=== PATIENT | female | born 1940 | race Caucasian/White ===

== ENCOUNTER 2020-02-04 10:04 | Emergency (ER) | payer MEDICARE, SELFPAY ==
--- NOTE | 2020-02-04 10:38 | ECG_ITS ---
Test Reason : WEAKNESS Blood Pressure : / mmHG Vent. Rate : 094 BPM Atrial Rate : 094 BPM P-R Int : 258 ms QRS Dur : 110 ms QT Int : 360 ms P-R-T Axes : 000 061 080 degrees QTc Int : 450 ms Poor data quality Sinus rhythm with 1st degree A-V block with occasional Premature ventricular complexes Septal infarct , age undetermined Abnormal ECG When compared with ECG of 02-MAR-2019 04:35, Premature ventricular complexes are now Present MO interval has increased Left bundle branch block is no longer Present (probably rate related LBBB) Septal infarct is now Present Referred By: Altagracia Salazar Electronically Signed By:Nawaf Sam
--- NOTE | 2020-02-04 11:21 | ED_ITS ---
HPI - URI/Sore Throat General Time Seen by Provider: 02/04/20 10:38 Source: patient Mode of arrival: EMS Limitations: no limitations History of Present Illness HPI Narrative: 79yoF c PMHx of COPD, CHF, CKD stage 3, hypertension, diffuse large B-cell lymphoma, anxiety, depression, lumbar degenerative disc disease, insomnia who is a daily smoker presenting to the ED c c/o worsening shortness of breath over the past few days worse today with associated dyspnea on exertion or orthopnea. Denies any fevers, chills, dizziness, headaches, chest pain, palpitations or any other symptoms complaints or concerns at this time. Denies recent travel. Reports that her roommate was recently hospitalized here for ?her heart not for COVID?. Denies any other sick contacts that she is aware about. Related Data Home Medications Medication Instructions Recorded Confirmed albuterol sulfate 2.5 mg INHALATION Q6H PRN 12/16/19 12/16/19 albuterol sulfate 90 mcg/actuation 2 puff INHALATION QID PRN g 12/16/19 12/16/19 aerosol inhaler atenolol 25 mg tablet 25 mg PO DAILY 12/16/19 12/16/19 fluoxetine 10 mg capsule 10 mg PO DAILY 12/16/19 12/16/19 hydrocodone 5 mg-acetaminophen 325 1 tab PO .1 to 2 times a day PRN 12/16/19 12/16/19 mg tablet tab umeclidinium 62.5 mcg/actuation 1 inh INHALATION DAILY 12/16/19 12/16/19 blister powder for inhalation Previous Rx's Medication Instructions Recorded fluticasone 232 mcg-salmeterol 14 1 inh PO BID #1 ea 12/30/19 mcg/actuation breath activated powdr nicotine 14 mg/24 hr daily 1 patch TRANSDERMAL Q24H #28 ea 01/19/20 transdermal patch ipratropium 0.5 mg-albuterol 3 mg 3 ml INHALATION Q6-8H PRN 30 Days 01/23/20 (2.5 mg base)/3 mL nebulization #360 ml soln tiotropium bromide 2.5 2 puff INHALATION DAILY 30 Days #4 01/23/20 mcg/actuation mist for inhalation g budesonide-formoterol HFA 160 2 puff INHALATION BID 30 Days 12/11/20 mcg-4.5 mcg/actuation aerosol #10.2 g inhaler lorazepam 1 mg tablet 1 mg PO BID PRN 30 Days #60 tab 02/02/20 Allergies Allergy/AdvReac Type Severity Reaction Status Date / Time Penicillins [PCN] Allergy Severe ANAPHYLAXIS Verified 12/16/19 11:49 nitrofurantoin Allergy Intermediate SHORTNESS Verified 12/16/19 11:49 [From MACROBID] OF BREATH amoxicillin Allergy Unknown Unknown Verified 12/16/19 11:49 penicillin V Allergy Unknown unknown Verified 12/16/19 11:49 tiotropium Allergy Unknown Unknown Verified 12/16/19 11:49 [Spiriva with HandiHaler] barium sulfate AdvReac Intermediate depression Verified 12/16/19 11:49 lisinopril AdvReac Intermediate wild dreams Verified 12/16/19 11:49 varenicline [From Chantix] AdvReac Intermediate depression Verified 12/16/19 11:49 Review of Systems Review of Systems: Constitutional : denies med noncompliance, no history of PE or DVT, denies recent travel, No Fever, No Chills ENT/Mouth : No Hoarseness, No sore throat, No Rhinorrhea Eyes: No Redness, No Discharge, No Vision Changes Cardiovascular : No Chest Pain, + SOB, + Dyspnea on Exertion, + orthopnea, No Edema, no pleurisy, Respiratory : + Cough, No Sputum, no stridor, no hemoptysis, Gastrointestinal : No Nausea, No Vomiting, No Diarrhea, No abdominal Pain Genitourinary : No Dysuria, No Hematuria Musculoskeletal : No joint pain, No Myalgias Extremities: no extremity swelling /pain Skin : No rash, no itching, no swelling Neuro : No Weakness, No Numbness, No Headache, No Dizziness Yes all other systems are reviewed and are negative [facility] Past Medical History Attestation statement: The following information was validated with the patient. Medical History Anxiety Benign essential hypertension CHF (congestive heart failure) Chronic kidney disease (CKD), stage III (moderate) COPD (chronic obstructive pulmonary disease) COPD exacerbation Depression Diffuse large B-cell lymphoma Insomnia Lumbar degenerative disc disease Smoker Surgical History No pertinent past surgical history Family History Family History Father Diabetes CVD (cardiovascular disease) Mother Chronic mental illness Social History Social History Smoking Status: Current every day smoker Tobacco Type: Cigarette Cigarettes Per Day: 5 Advance Directives: No Advance Directives Information Provided: No Physical Exam Vital Signs: Vital Signs: vital signs have been reviewed as normal and appeared to be correct. Blood pressure normal. Heart rate tachycardic. R espiration rate normal. Temperature normal. Oxygen saturation low 90s-95%on RA. Appearance: Alert. Oriented X3. Acute mild respiratory distress Head: Normal external exam. Normocephalic. Atraumatic. Eyes: PERRLA. EOMI. Conjunctiva and sclera normal. Eyelids normal. ENT: EAC normal. TM's Normal. Pharynx normal. Uvula midline. Moist mucous membranes. No trismus noted. No drooling noted. No muffled voice noted. Neck: Normal inspection. Neck supple. FROM. No adenopathy. Thyroid Normal. No meningeal signs. CVS: Normal heart rate and rhythm. Heart sound normal. No murmurs noted. Pulses normal throughout. Respiratory: Acute mild respiratory distress. Patient has decreased breath sounds throughout with inspiratory and expiratory wheezing throughout with acce ssory muscle usage. No rales/rhonchi noted. Chest is nontender. Back: Full range of motion noted. Skin: Skin warm and dry. Normal skin color. Normal skin turgor. No rashes/lesions/lacerations noted. Extremities: No lower extremity edema. No calf tenderness noted. Extremities exhibit normal range of motion. Extremities nontender. Neuro: Oriented X 3. No motor deficit. No sensory deficit. Reflexes normal. Course Course Course Narrative: 10:40am - 79yoF c PMHx of COPD, CHF, CKD stage 3, hypertension, diffuse large B-cell lymphoma, anxiety, depression, lumbar degenerative disc disease, insomnia who is a daily smoker presenting to the ED c c/o worsening shortness of breath over the past few days worse today with associated dyspnea on exertion or orthopnea. - On exam patient is alert and oriented x3. And mild acute respiratory distress with accessory muscle usage and inspiratory and expiratory wheezing throughout although oxygen saturation is 90-95% on room air. Otherwise all other vitals are within normal limits. Patient does not have any calf tenderness and no lower extremity edema noted. - Concern for COPD exacerbation vs pneumonia vs COVID vs viral syndrome - Plan: Labs, EKG, CXR, Respiratory Panel. Provide a L of IV fluids, an hour long albuterol breathing treatment, 2 g of magnesium and 125 mg of Solu-Medrol then re-evaluate. MDM - URI/Sore Throat Medical Records Attestation: I reviewed the patient's medical records. Lab Data Attestation: I reviewed the patient's lab results. ECG Data Attestation: I personally reviewed and interpreted this ECG as follows: ECG interpretation date: 02/04/20 ECG interpretation time: 10:50 Interpretation: Sinus rhythm with first-degree AV block with occasional PVCs normal MS interval no acute ischemic changes noted. Discharge Plan Discharge Prescriptions: No Action fluticasone propion-salmeterol 232-14 mcg/actuation aerosol powdr breath activated 1 inh PO BID Qty: 1 RF: 0 nicotine 14 mg/24 hr patch 24 hour 1 patch transdermal Q24H Qty: 28 RF: 0 Spiriva Respimat 2.5 mcg/actuation mist 2 puff inhalation DAILY 30 Days Qty: 4 RF: 5 ipratropium-albuterol 0.5 mg-3 mg(2.5 mg base)/3 mL solution for nebulization 3 ml inhalation Q6-8H PRN (Reason: wheezing) 30 Days Qty: 360 RF: 3 budesonide-formoterol [Symbicort] 160-4.5 mcg/actuation HFA aerosol inhaler 2 puff inhalation BID 30 Days Qty: 10.2 RF: 12 lorazepam 1 mg tablet 1 mg PO BID PRN (Reason: anxiety) 30 Days Qty: 60 RF: 0 fluoxetine 10 mg capsule 10 mg PO DAILY RF: 0 atenolol 25 mg tablet 25 mg PO DAILY RF: 0 albuterol sulfate 2.5 mg /3 mL (0.083 %) solution for nebulization 2.5 mg inhalation Q6H PRN (Reason: shortness of breath or wheezing) RF: 0 albuterol sulfate 90 mcg/actuation HFA aerosol inhaler 2 puff inhalation QID PRN (Reason: shortness of breath or wheezing) RF: 0 hydrocodone-acetaminophen 5-325 mg tablet 1 tab PO .1 to 2 times a day PRN (Reason: pain) RF: 0 Incruse Ellipta 62.5 mcg/actuation blister with device 1 inh inhalation DAILY RF: 0
[2020-02-04] MEDS: Magnesium Sulfate/H2O 2 GM/50 ML PIGGYBACK IV (11:45)
[2020-02-04] MEDS: 0.9 % Sodium Chloride 1,000 ML 999 ML IVCONT (11:45)
[2020-02-04] MEDS: methylPREDNISolone Sod Succ/PF 125 MG/2 ML VIAL IVPUSH (11:45)
[2020-02-04 11:48] VITALS: BP 155/77; PULSE 90; RESP 18; TEMP 37.1; O2SAT 94
[2020-02-04 11:49] LABS: Adenovirus PCR Not Detected (Not Detect.); Bordetella parapertussis PCR Not Detected (Not Detect.); Bordetella pertussis PCR Not Detected (Not Detect.); Chlamydia pneumoniae PCR Not Detected (Not Detect.); Coronavirus 229E PCR Not Detected (Not Detect.); Coronavirus HKU1 PCR Not Detected (Not Detect.); Coronavirus NL63 PCR Not Detected (Not Detect.); Coronavirus OC43 PCR Not Detected (Not Detect.); Human metapneumovirus PCR Not Detected (Not Detect.); Influenza A PCR Not Detected (Not Detect.); Influenza B PCR Not Detected (Not Detect.); Mycoplasma pneumoniae PCR Not Detected (Not Detect.); Parainfluenza 1 PCR Not Detected (Not Detect.); Parainfluenza 2 PCR Not Detected (Not Detect.); Parainfluenza 3 PCR Not Detected (Not Detect.); Parainfluenza 4 PCR Not Detected (Not Detect.); RSV PCR Not Detected (Not Detect.); Rhino/Enterovirus PCR Not Detected (Not Detect.); SARS-CoV-2 PCR Not Detected (Not Detect.)
[2020-02-04 11:58] LABS: Basophils Percent Auto 0.2 % (0-2); Eosinophils Absolute Auto 0.3 X10*3/uL (0.0-0.4); Hemoglobin 11.7 g/dl (12.0-16.0); Imm Gran Abs Auto 0.04 X10*3/uL (0.00-0.03); Imm Gran Pct Auto 0.5 % (0.0-0.4); Lymphocytes Absolute Auto 0.6 X10*3/uL (1.2-4.9); Lymphocytes Percent Auto 7.5 % (20-40); Mean Corpuscular HGB Conc 32.5 g/dl (31.0-35.0); Mean Corpuscular Hemoglobin 34.2 pg (27.0-33.0); Mean Corpuscular Volume 105.3 fL (80-98); Mean Platelet Volume 8.9 fL (9.4-12.3); Monocytes Absolute Auto 0.4 X10*3/uL (0.1-1.2); Monocytes Percent Auto 5.1 % (2-11); Neutrophils Absolute Auto 6.9 X10*3/uL (2.0-8.3); Neutrophils Percent Auto 82.7 % (45-73); Platelet Count 204 X10*3/uL (160-400); Red Blood Count 3.42 X10*6/uL (4.20-5.50); Red Cell Distribution Width 13.5 % (11.0-16.0); SCAN SMEAR FLAG 1; White Blood Count 8.3 X10*3/uL (4.8-10.8)
[2020-02-04 12:00] LABS: MANUAL DIFF FLAG SCAN
[2020-02-04 12:03] LABS: Prothrombin Time 12.4 SEC (10.8-13.0)
[2020-02-04 12:06] LABS: D Dimer 858 NG/ML
[2020-02-04 12:28] LABS: Lactate Dehydrogenase 132 U/L (122-220)
[2020-02-04 12:31] LABS: Alanine Aminotransferase 26 U/L (0-31); Albumin Level 3.6 g/dL (3.5-5.0); Alkaline Phosphatase 158 U/L (39-117); Anion Gap 12 (12-20); Aspartate Amino Transferase 20 U/L (5-31); Bilirubin Direct 0.3 mg/dL (0.0-0.5); Bilirubin Total 0.6 mg/dL (0.0-1.0); Blood Urea Nitrogen 33 mg/dL (9-16); Calcium 8.6 mg/dL (8.4-10.2); Carbon Dioxide 29 mmol/L (22-29); Chloride 102 mmol/L (96-108); Estimated Glomerular Filt Rate 52; Glucose Random 91 mg/dL (60-115); Potassium 4.2 mmol/l (3.3-5.1); Sodium 139 mmol/L (135-145); Total Protein 6.4 g/dL (6.5-8.0)
[2020-02-04 12:34] LABS: B Type Natriuretic Peptide 467 pg/mL (<100)
[2020-02-04] MEDS: Albuterol Sulfate 90 MCG 8 GM INHALER 4 PUFF INHALE (12:34)
[2020-02-04 12:39] LABS: SLIDE REVIEW VERIFIED
--- NOTE | 2020-02-04 12:42 | XR_ITS ---
EXAMINATION: XR CHEST CLINICAL INFORMATION: SOB. COMPARISON: None TECHNIQUE: Frontal view of the chest was obtained. FINDINGS: The lungs are hyperinflated with patchy consolidation left upper lobe suprahilar region suggestive of infiltrate or mass. Rest of lungs are clear. Slight increase interstitial markings are seen in both lungs. Heart size and pulmonary vascularity is normal. No gross bony abnormality. XR/XR chest 1V IMPRESSION: Hyperinflated lungs with a new left upper lobe mass or consolidation.
[2020-02-04 12:46] LABS: Troponin-I High Sensitivity 28.2 ng/L (<3.5-17.0)
[2020-02-04 12:52] LABS: Ferritin 336 ng/mL (10-250)
[2020-02-04 13:03] LABS: Procalcitonin 0.89 ng/mL
[2020-02-04 13:15] VITALS: BP 170/74; PULSE 95; RESP 18; TEMP 36.9; O2SAT 96
--- NOTE | 2020-02-04 13:29 | CT_ITS ---
EXAMINATION: CT ANGIOGRAM OF THE CHEST WITH AND WITHOUT CONTRAST (CT PULMONARY ANGIOGRAM FOR PE) CLINICAL INFORMATION: Reason for Exam sob, elevated d dimer COMPARISON: None TECHNIQUE: Prior to contrast administration, noncontrast localization images were obtained. Subsequently, multidetector volumetric imaging was performed from the thoracic inlet to below the diaphragms following the administration of 80 mL Omnipaque 350 intravenous contrast. No contrast reaction reported Sagittal, coronal, and MIP oblique sagittal reformatted images were obtained on the CT workstation, uploaded to PACS, and reviewed. This CT examination was performed using dose optimization techniques as appropriate, variously including the following: *Automated exposure control *Adjustment of mA and/or kV according to patient size (this includes techniques or standardized protocols for targeted exams where dose is matched to indication/reason for exam; i.e. extremities or head) *Use of iterative reconstruction technique Total exam dose-length product 201 mGy-cm FINDINGS: QUALITY OF STUDY/CONTRAST BOLUS: Satisfactory. PULMONARY ARTERIES: There is good opacification of pulmonary arteries and their branches without any intraluminal filling defect or narrowing. The right and left pulmonary artery appears slightly enlarged. The left ovary artery measures 3.1 cm and right pulmonary artery measures 3.3 cm. THORACIC AORTA: The thoracic aorta is of normal caliber. There is no aneurysm or dissection. There are vascular calcifications throughout the thoracic aorta. LUNG: There is left upper lobe para-aortic infiltrative lesion/mass, difficult to measure roughly measures 4.0 x 2.3 cm. There is prominent intralobular markings and patchy opacification in the left upper lobe surrounding the lesion and in the lingula. There are no additional nodules visualized. No acute consolidation. The lungs are hyperinflated. PLEURA: No pleural effusion or pneumothorax. MEDIASTINUM: There are numerous anterior pretracheal, aortic window lymph nodes the largest pretracheal lymph node measures 8 mm. No evidence of septal bowing or right heart strain. CHEST WALL/AXILLA: No axillary or internal mammary lymphadenopathy. OSSEOUS STRUCTURES: No lytic or sclerotic process seen. There is mild loss of T7 and T8 vertebral height likely chronic. Endplate disease is seen. UPPER ABDOMEN: Visualized lies liver, spleen, pancreas and bilateral adrenal glands are unremarkable. No reflux of contrast into the hepatic veins to suggest elevated right heart pressures. CT/CT angio chest PE protocol IMPRESSION: Infiltrative mass left upper lobe. Differential diagnoses may include pneumonia. There is intralobular thickening and patchy opacification seen and involving the entire left upper lobe and the lingula. Reactive lymphadenopathy seen in the mediastinum. No evidence of PE. No aortic aneurysm or dissection. Prominent bilateral right and left pulmonary arteries, ? pulmonary arterial hypertension. VTE: negative
[2020-02-04] MEDS: iohexoL 350 MG/ML 100 ML INFUS..BTL 75 ML IV (13:56)
[2020-02-04] MEDS: levoFLOXacin/D5W 500 MG/100 ML PIGGYBACK 100 MG IV (14:03)
[2020-02-04 14:04] VITALS: BP 171/74; PULSE 87; RESP 16; TEMP 36.7; O2SAT 89; O2SAT 95
--- NOTE | 2020-02-04 15:17 | PC.NURSE ---
PROVIDER AT THE BEDSIDE TO REVIEW CARE PLAN AND DISCUSS ADMISSION VS D/C PT IS REQUESTING TO GO HOME AND RETURN IF WORSE
== END 2020-02-04 16:49 | disposition home or self-care (01) ==
PROVIDERS: Physician Assistant Medical; Emergency Provider Emergency Medicine
DX: J18.9 Pneumonia, unspecified organism (principal); R91.8 Other nonspecific abnormal finding of lung field; F41.9 Anxiety disorder, unspecified; I13.0 Hypertensive heart and chronic kidney disease with heart failure and stage 1 through stage 4 chronic kidney disease, or unspecified chronic kidney disease; N18.30 Chronic kidney disease, stage 3 unspecified; I50.9 Heart failure, unspecified; J44.9 Chronic obstructive pulmonary disease, unspecified; F17.210 Nicotine dependence, cigarettes, uncomplicated
CPT/HCPCS: 36415; 71045; 71275; 80048; 80076; 82728; 83615; 83735; 83880; 84145; 84484; 85025; 85379; 85610; 87633; 93005; 99282; 99283; J1956; J2930; J3475; Q9967

== ENCOUNTER → 2020-03-04 13:36 | Outpatient (BNVA) | payer MEDICARE, SELFPAY | PROVIDERS: PCP Internal Medicine; Visit Provider Internal Medicine | DX: J44.9 Chronic obstructive pulmonary disease, unspecified (principal); F17.200 Nicotine dependence, unspecified, uncomplicated; Z71.6 Tobacco abuse counseling | CPT/HCPCS: 99212 ==

== ENCOUNTER → 2020-05-04 14:11 | Outpatient (BNVA) | payer MEDICARE, SELFPAY | PROVIDERS: PCP Internal Medicine; Visit Provider Internal Medicine | DX: J44.9 Chronic obstructive pulmonary disease, unspecified (principal); R91.8 Other nonspecific abnormal finding of lung field; F17.200 Nicotine dependence, unspecified, uncomplicated; Z71.6 Tobacco abuse counseling | CPT/HCPCS: 99212 ==

== ENCOUNTER → 2020-07-20 13:35 | Outpatient (BNVA) | payer MEDICARE, SELFPAY | PROVIDERS: PCP Internal Medicine; Visit Provider Internal Medicine | DX: J44.9 Chronic obstructive pulmonary disease, unspecified (principal); R91.8 Other nonspecific abnormal finding of lung field; F17.200 Nicotine dependence, unspecified, uncomplicated; Z79.899 Other long term (current) drug therapy; Z71.6 Tobacco abuse counseling | CPT/HCPCS: 99212 ==

== ENCOUNTER 2020-07-28 22:15 | Inpatient (IN) | payer MEDICARE, SELFPAY ==
--- NOTE | ~2020-07-28 | XR_ITS ---
EXAMINATION: XR CHEST CLINICAL INFORMATION: Shortness of breath, history of COPD and CHF COMPARISON: 02/04/2020 TECHNIQUE: Frontal view of the chest was obtained. FINDINGS: The lungs are hyperinflated, suspicious for underlying COPD. Previously identified focal opacity in the left upper lobe now appears essentially resolved. No new consolidation identified bilaterally. No evidence of pneumothorax, significant pleural effusion, or pulmonary edema. The cardiomediastinal silhouette is stable. Calcification is present at the aortic arch. No acute osseous findings are seen. XR/XR chest 1V IMPRESSION: No new acute findings. Previously identified focal left upper lobe opacity from 02/04/2020 appears essentially resolved. Hyperinflated lungs consistent with COPD.
--- NOTE | ~2020-07-28 | NM_ITS ---
Myocardial perfusion study Indication: Elevated Troponin. LV systolic dysfunction to evaluate for myocardial ischemia Technique: The patient was brought in for a Lexiscan perfusion study on 08/02/2020. Patient performed low-level exercise and was injected 0.4 mg of Lexiscan intravenously. Within a minute of injection, 25 mCi of sestamibi was given intravenously. Images were obtained using the SPECT gamma camera interlaced with the gating device. Images were obtained in supine position. Resting perfusion study was performed on 07/30/2020. Patient was administered 25 mCi of sestamibi intravenously at rest. Images were then obtained in supine position. Images obtained with and without CT attenuation. Total DLP 72 mGy-cm. Images were processed with the software and compared side to side in short axis, horizontal long axis and vertical long axis views. Findings: The stress perfusion study showed nonattenuated images show mildly reduced uptake in the septum and inferoapical wall of the LV myocardium which shows some thinning. Attenuation corrected images are within normal limits normal uptake of LV myocardium in all segments.. The gated study shows reduced LV systolic function with calculated LVEF of 36%. LV cavity is normal in size. The gated study shows reduced apical and mid ventricular wall thickening and contraction of segments. Resting study shows nonattenuated images show mildly reduced uptake in the septum and apex of the LV myocardium with some thinning of the distal inferior wall. Attenuation corrected images show mildly to moderately reduced uptake in the septum distal anterior, apex and inferoapical wall of the LV myocardium.. Gating at rest reveals apical wall motion abnormality with ejection fraction at 45%. The findings are consistent with normal myocardial perfusion. NM/NM jerilyn perf SPECT rest & str Impression: 1. Myocardial perfusion imaging study shows normal myocardial perfusion 2. Gated LVEF is 36% with stress and 45% with stress 3. Transient ischemic dilatation not present EKG is nondiagnostic for ischemia
--- NOTE | ~2020-07-28 | CT_ITS ---
EXAMINATION: CT ANGIOGRAM OF THE CHEST WITH AND WITHOUT CONTRAST (CT PULMONARY ANGIOGRAM FOR PE) CLINICAL INFORMATION: Reason for Exam sob, hypoxic with exertion, hx B cell lymphoma COMPARISON: CTA chest 02/04/2020 TECHNIQUE: Prior to contrast administration, noncontrast localization images were obtained. Subsequently, multidetector volumetric imaging was performed from the thoracic inlet to below the diaphragms following the administration of 80 mL Omnipaque 350 intravenous contrast. No contrast reaction reported Sagittal, coronal, and MIP oblique sagittal reformatted images were obtained on the CT workstation, uploaded to PACS, and reviewed. This CT examination was performed using dose optimization techniques as appropriate, variously including the following: *Automated exposure control *Adjustment of mA and/or kV according to patient size (this includes techniques or standardized protocols for targeted exams where dose is matched to indication/reason for exam; i.e. extremities or head) *Use of iterative reconstruction technique Total exam dose-length product 94 mGy-cm FINDINGS: QUALITY OF STUDY/CONTRAST BOLUS: Satisfactory. PULMONARY ARTERIES: No central or segmental pulmonary emboli. THORACIC AORTA: There is atherosclerotic calcification of thoracic aorta and coronary arteries. LUNG: Centrilobular emphysema with patchy dense opacity right lung base likely consolidation or chronic scarring. It is new since the last exam 02/04/2020. Rest of the lungs are expanded. There is bright lower lobe bronchial wall thickening with intrabronchial or debris. Previously visualized lingular patchy opacity has improved. Previously seen left upper lobe infiltrate or mass has resolved. PLEURA: No pleural effusion or pneumothorax. MEDIASTINUM: Heart size is normal. The thoracic aorta is normal caliber no pericardial effusion seen. Central trachea and the bronchi appears widely patent. There is atherosclerotic calcification of thoracic arch without dilation. Thyroid lobes are symmetrical and normal. No evidence of septal bowing or right heart strain. CHEST WALL/AXILLA: No axillary or internal mammary lymphadenopathy. OSSEOUS STRUCTURES: No acute or suspicious osseous abnormality. There are degenerative disc changes and vacuum disc phenomena upper lumbar spine. UPPER ABDOMEN: There is a 2 cm lesion right hepatic lobe probable cyst. No additional lesions seen. Bilateral adrenal glands are grossly unremarkable. There is a radiopaque calculi upper pole left kidney. No reflux of contrast into the hepatic veins to suggest elevated right heart pressures. CT/CT angio chest PE protocol IMPRESSION: No evidence of PE. No evidence aortic dissection or aneurysm. Right lower lobe chronic atelectasis or consolidation, new since 2019. Left upper lobe infiltrative mass has resolved. Diffuse emphysema mild bronchial wall thickening and intrabronchiolar debris in both lower lobes. Likely right hepatic cyst VTE: negative
[2020-07-28 22:25] VITALS: BP 184/89; PULSE 100; RESP 16; TEMP 36.7; O2SAT 92; O2SAT 99; BMI 18.8
[2020-07-28 22:30] VITALS: RESP 18
--- NOTE | 2020-07-28 22:30 | ECG_ITS ---
Test Reason : SOB Blood Pressure : / mmHG Vent. Rate : 109 BPM Atrial Rate : 109 BPM P-R Int : 136 ms QRS Dur : 100 ms QT Int : 368 ms P-R-T Axes : 084 050 092 degrees QTc Int : 495 ms Sinus tachycardia Septal infarct (cited on or before 04-FEB-2020) Possible Lateral infarct , age undetermined Abnormal ECG When compared with ECG of 04-FEB-2020 10:50, Premature ventricular complexes are no longer Present TN interval has decreased Borderline criteria for Lateral infarct are now Present Referred By: Cass Han Electronically Signed By:JUAN DOCKERY MD
--- NOTE | 2020-07-28 22:31 | ED_ITS ---
HPI - SOB/Dyspnea General Chief Complaint: Dyspnea Stated Complaint: INCREASED SOB Time Seen by Provider: 07/28/20 22:21 Source: patient and EMS Mode of arrival: EMS Limitations: no limitations History of Present Illness HPI Narrative: Patient comes emergency room complaining of shortness of breath. Patient states she is known to have CHF and COPD. States that she usually gets short of breath several times per day, uses her inhaler and the shortness of breath resolves. However, this night, the shortness of breath persisted. Patient denies being sick lately, denies any new URI symptoms, no chest pain. Denies abdominal pain MD elicited complaint: shortness of breath Related Data Home Medications Medication Instructions Recorded Confirmed albuterol sulfate 2.5 mg INHALATION Q6H PRN 07/20/20 docusate sodium 100 mg capsule 100 mg PO DAILY PRN 07/20/20 polyethylene glycol 3350 17 17 g PO DAILY PRN g 07/20/20 gram/dose oral powder Previous Rx's Medication Instructions Recorded ipratropium 0.5 mg-albuterol 3 mg 3 ml INHALATION Q6-8H PRN 30 Days 01/23/20 (2.5 mg base)/3 mL nebulization #360 ml soln budesonide-formoterol HFA 160 2 puff INHALATION BID 30 Days 02/19/20 mcg-4.5 mcg/actuation aerosol #10.2 g inhaler hydrocodone 5 mg-acetaminophen 325 1 tab PO .1 to 2 times a day PRN 03/19/20 mg tablet 30 Days #60 tab nebulizers #1 ea 03/22/20 nicotine 14 mg/24 hr daily 1 patch TOPICAL DAILY #28 patch 04/19/20 transdermal patch umeclidinium 62.5 mcg/actuation 1 inh PO DAILY #30 ea 04/27/20 blister powder for inhalation fluoxetine 20 mg tablet 20 mg PO DAILY 30 Days #30 tab 05/10/20 fluticasone propionate 50 1 spray INTRANASAL BID PRN #16 g 05/21/20 mcg/actuation nasal spray,suspension atenolol 25 mg tablet 25 mg PO DAILY #90 tab 06/23/20 albuterol sulfate 90 mcg/actuation 2 puff INHALATION QID PRN 30 Days 07/20/20 aerosol inhaler #8.5 g lorazepam 1 mg tablet 1 mg PO BID PRN 30 Days #60 tab 07/20/20 Allergies Allergy/AdvReac Type Severity Reaction Status Date / Time Penicillins [PCN] Allergy Severe ANAPHYLAXIS Verified 07/20/20 13:49 nitrofurantoin Allergy Intermediate SHORTNESS Verified 07/20/20 13:49 [From MACROBID] OF BREATH amoxicillin Allergy Unknown Unknown Verified 07/20/20 13:49 penicillin V Allergy Unknown unknown Verified 07/20/20 13:49 tiotropium Allergy Unknown Unknown Verified 07/20/20 13:49 [Spiriva with HandiHaler] barium sulfate AdvReac Intermediate depression Verified 07/20/20 13:49 lisinopril AdvReac Intermediate wild dreams Verified 07/20/20 13:49 varenicline [From Chantix] AdvReac Intermediate depression Verified 07/20/20 13:49 Review of Systems Review of Systems: Constitutional : No Weight loss, No Fever, No Chills, No Night Sweats, No Fatigue, No Malaise ENT/Mouth : No Hearing loss, No Ear Pain, No Nasal Congestion, No Sinus Pain, No Hoarseness, No sore throat, No Rhinorrhea, No Swallowing Difficulty Eyes: No Eye Pain, No Swelling, No Redness, No Foreign Body, No Discharge, No Vision Changes Cardiovascular : No Chest Pain, complaining of worsening shortness of breath, worsening of Dyspnea on Exertion, No Orthopnea, No Edema, No Palpitations Respiratory : No Cough, No Sputum, No Wheezing, No Smoke Exposure, No Dyspnea Gastrointestinal : No Nausea, No Vomiting, No Diarrhea, No Constipation, No abdominal Pain, No Hematochezia, No Melena Genitourinary : no irregular bleeding, No Dysuria, No Urinary Frequency, No Cam turia, No Urinary Incontinence, No Urgency, No Flank Pain, No Urinary Flow Changes, No Hesitancy Musculoskeletal : No joint pain, No Myalgias, No Joint Swelling Skin : No Skin Lesions, No rash Neuro : No Weakness, No Numbness, No Paresthesias, No Loss of Consciousness, No Dizziness, No Headache Psych : No Anxiety/Panic, No Depression, No SI/HI/AH/VH, No Social Issues, Heme/Lymph: No Bruising, No Bleeding,No Lymphadenopathy Endocrine : No Polyuria, No Polydipsia, No Temperature Intolerance PMFSH Past Medical History Medical History Anxiety Benign essential hypertension CHF (congestive heart failure) Chronic kidney disease (CKD), stage III (moderate) Constipation COPD (chronic obstructive pulmonary disease) COPD exacerbation Depression Diffuse large B-cell lymphoma Insomnia Left upper lobe pulmonary infiltrate Lumbar degenerative disc disease (~07/20/20) Smoker Surgical History No pertinent past surgical history Family History Family History Father Diabetes CVD (cardiovascular disease) Mother Chronic mental illness Social History Social History Alcohol intake: unknown Patient Tobacco Use Status: Tobacco use Unknown Cigarettes Per Day: 5 Use of substances other than those prescribed or required for medical reasons: Unknown Advance Directives: No Advance Directives Information Provided: No Physical Exam Vital Signs: Vital Signs: Last Vital Signs Temp 98.0 F 07/29/20 00:00 Pulse 100 07/29/20 00:00 Resp 18 07/29/20 00:00 BP 184/89 H 07/29/20 00:00 Pulse Ox 99 07/29/20 00:00 Oxygen Flow Rate 2 07/28/20 22:25 Body Mass Index 18.8 Appearance: Alert. Oriented X3. No acute distress. Eyes: Pupils equal, round and reactive to light. ENT: Pharynx normal. Neck: Normal inspection. Neck supple. No lymph nodes noted. No crepitus CVS: Normal heart rate and rhythm. Pulses normal. Normal S1 and S2 Respiratory: No respiratory distress. Oxygen saturation 94% on room air, decreased breath sounds bilaterally, mild bilateral wheezing Abdomen: Soft and nontender. No rigidity. No distention. good BS x4 Skin: Skin warm and dry. Normal skin turgor. Extremities: No lower extremity edema. No lower extremity edema. No Lacerations. No Rash Neuro: Oriented X 3. No motor deficit. No sensory deficit. Moving all extermities. No slurred speech. Course Course Course Narrative: Patient states that she feels well. However when she starts walking she feels short of breath. Patient denies chest pain or shortness of breath at rest. When patient started walking, her oxygen saturation decreased to 86% while walking on room air. I discussed the patient with Dr. Rebolledo. Patient will be treated empirically for COPD. At this time sepsis is not suspected. Per Dr. Rebolledo is request, this time will get a CT for PE. Patient does have history of CHF, however BNP is at baseline. CHF exacerbation is not suspected at this time. Elevated troponin is likely secondary to demand ischemia. Troponin 2. Pending. Patient does not have any chest pain. EKG stab le, no changes from EKG from February 2019. Patient admitted by Dr. Rebolledo. MDM - SOB/Dyspnea Lab Data Result diagrams: 07/28/20 23:38 07/28/20 23:38 Labs: Lab Results 07/28/20 07/28/20 07/28/20 Range/Units 23:38 23:38 23:38 WBC 10.0 (4.8-10.8) X10*3/uL RBC 3.41 L (4.20-5.50) X10*6/uL Hgb 11.5 L (12.0-16.0) g/dl Hct 35.3 L (37-47) % MCV 103.5 H (80-98) fL MCH 33.7 H (27.0-33.0) pg MCHC 32.6 (31.0-35.0) g/dl RDW 14.0 (11.0-16.0) % Plt Count 209 (160-400) X10*3/uL MPV 8.4 L (9.4-12.3) fL Immature Gran % (Auto) 0.5 H (0.0-0.4) % Neut % (Auto) 79.2 H (45-73) % Lymph % (Auto) 10.9 L (20-40) % [place] % (Auto) 7.0 (2-11) % Eos % (Auto) 2.0 (0-4) % Baso % (Auto) 0.4 (0-2) % Lymph # (Auto) 1.1 L (1.2-4.9) X10*3/uL [place] # (Auto) 0.7 (0.1-1.2) X10*3/uL Eos # (Auto) 0.2 (0.0-0.4) X10*3/uL Baso # (Auto) 0.0 (0.0-0.2) X10*3/uL Abs Immat Gran (auto) 0.05 H (0.00-0.03) X10*3/uL Absolute Neuts (auto) 8.0 (2.0-8.3) X10*3/uL Absolute Nucleated RBC 0.000 (0.0-0.012) X10*3/uL Nucleated RBC % (auto) 0.0 (0.0-0.2) /100WBC Sodium 139 (135-145) mmol/L Potassium 4.0 (3.3-5.1) mmol/L Chloride 104 (96-108) mmol/L Carbon Dioxide 27 (22-29) mmol/L Anion Gap 12 (12-20) BUN 27 H (9-16) mg/dL Creatinine 1.16 (0.5-1.4) mg/dL Estim Creat Clear Calc 31.3 Estimated GFR 45 Random Glucose 122 H (60-115) mg/dL Lactic Acid (0.5-2.0) mmol/L Calcium 8.8 (8.4-10.2) mg/dL Total Bilirubin 0.6 (0.0-1.0) mg/dL Direct Bilirubin 0.2 (0.0-0.5) mg/dL AST 71 H (5-31) U/L ALT 38 H (0-31) U/L Alkaline Phosphatase 119 H D (39-117) U/L Troponin I High Sens 59.0 H* (<3.5-17.0) ng/L B-Natriuretic Peptide (<100) pg/mL Total Protein 6.3 L (6.5-8.0) g/dL Albumin 3.6 (3.5-5.0) g/dL COVID-19 ([facility]) (Negative) COVID-19 Clin Com 07/28/20 07/28/20 07/28/20 Range/Units 23:38 23:38 23:40 WBC (4.8-10.8) X10*3/uL RBC (4.20-5.50) X10*6/uL Hgb (12.0-16.0) g/dl Hct (37-47) % MCV (80-98) fL MCH (27.0-33.0) pg MCHC (31.0-35.0) g/dl RDW (11.0-16.0) % Plt Count (160-400) X10*3/uL MPV (9.4-12.3) fL Immature Gran % (Auto) (0.0-0.4) % Neut % (Auto) (45-73) % Lymph % (Auto) (20-40) % [place] % (Auto) (2-11) % Eos % (Auto) (0-4) % Baso % (Auto) (0-2) % Lymph # (Auto) (1.2-4.9) X10*3/uL [place] # (Auto) (0.1-1.2) X10*3/uL Eos # (Auto) (0.0-0.4) X10*3/uL Baso # (Auto) (0.0-0.2) X10*3/uL Abs Immat Gran (auto) (0.00-0.03) X10*3/uL Absolute Neuts (auto) (2.0-8.3) X10*3/uL Absolute Nucleated RBC (0.0-0.012) X10*3/uL Nucleated RBC % (auto) (0.0-0.2) /100WBC Sodium (135-145) mmol/L Potassium (3.3-5.1) mmol/L Chloride (96-108) mmol/L Carbon Dioxide (22-29) mmol/L Anion Gap (12-20) BUN (9-16) mg/dL Creatinine (0.5-1.4) mg/dL Estim Creat Clear Calc Estimated GFR Random Glucose (60-115) mg/dL Lactic Acid 0.8 (0.5-2.0) mmol/L Calcium (8.4-10.2) mg/dL Total Bilirubin (0.0-1.0) mg/dL Direct Bilirubin (0.0-0.5) mg/dL AST (5-31) U/L ALT (0-31) U/L Alkaline Phosphatase (39-117) U/L Troponin I High Sens (<3.5-17.0) ng/L B-Natriuretic Peptide 429 H (<100) pg/mL Total Protein (6.5-8.0) g/dL Albumin (3.5-5.0) g/dL COVID-19 ([facility]) Negative (Negative) COVID-19 Clin Com See Note Imaging Data Chest x-ray: Radiologist's impression: FINDINGS: The lungs are hyperinflated, suspicious for underlying COPD. Previously identified focal opacity in the left upper lobe now appears essentially resolved. No new consolidation identified bilaterally. No evidence of pneumothorax, significant pleural effusion, or pulmonary edema. The cardiomediastinal silhouette is stable. Calcification is present at the aortic arch. No acute osseous findings are seen. XR/XR chest 1V IMPRESSION: No new acute findings. Previously identified focal left upper lobe opacity from 02/04/2020 appears essentially resolved. Hyperinflated lungs consistent with COPD. ECG Data Attestation: I personally reviewed and interpreted this ECG as follows: (Sinus tachycardia, heart rate 109, nonspecific T-wave changes in V3 through V6, QTC 4 95, no EKG changes from February 2019) Discharge Plan Discharge Clinical Impression: COPD exacerbation Patient Disposition: Admitted As Inpatient
[2020-07-28 22:38] VITALS: PULSE 100; O2SAT 94
[2020-07-28] MEDS: Albuterol Sulfate (0.083%) 2.5 MG/3 ML VIAL.NEB 10 MG INHALE (22:38)
[2020-07-28 23:50] LABS: Basophils Percent Auto 0.4 % (0-2); Eosinophils Absolute Auto 0.2 X10*3/uL (0.0-0.4); Hematocrit 35.3 % (37-47); Hemoglobin 11.5 g/dl (12.0-16.0); Imm Gran Abs Auto 0.05 X10*3/uL (0.00-0.03); Imm Gran Pct Auto 0.5 % (0.0-0.4); Lymphocytes Absolute Auto 1.1 X10*3/uL (1.2-4.9); Lymphocytes Percent Auto 10.9 % (20-40); MANUAL DIFF FLAG NO; Mean Corpuscular HGB Conc 32.6 g/dl (31.0-35.0); Mean Corpuscular Hemoglobin 33.7 pg (27.0-33.0); Mean Corpuscular Volume 103.5 fL (80-98); Mean Platelet Volume 8.4 fL (9.4-12.3); Monocytes Absolute Auto 0.7 X10*3/uL (0.1-1.2); Neutrophils Percent Auto 79.2 % (45-73); Platelet Count 209 X10*3/uL (160-400); Red Blood Count 3.41 X10*6/uL (4.20-5.50)
[2020-07-29] VITALS (11 sets, daily range): BP systolic 144–184; BP diastolic 68–98; PULSE 86–121; RESP 14–23; TEMP 35.9–36.7; O2SAT 92–100; BMI 18.8
--- NOTE | 2020-07-29 | ECG_ITS ---
Test Reason : ELEVATED TROP Blood Pressure : / mmHG Vent. Rate : 103 BPM Atrial Rate : 103 BPM P-R Int : 126 ms QRS Dur : 084 ms QT Int : 336 ms P-R-T Axes : 000 106 268 degrees QTc Int : 440 ms Sinus tachycardia with occasional Premature ventricular complexes Anterolateral infarct (cited on or before 04-FEB-2020) Abnormal ECG When compared with ECG of 29-JUL-2020 00:48, Premature ventricular complexes are now Present QRS axis Shifted right Questionable change in initial forces of Anterolateral leads Nonspecific T wave abnormality now evident in Inferior leads Nonspecific T wave abnormality, worse in Anterolateral leads QT has shortened Referred By: Bess Dhillon Electronically Signed By:JUAN DOCKERY MD
[2020-07-29 00:05] LABS: COVID-19 Test Negative (Negative); IDNOW Serial# 9DD0AD1C
[2020-07-29 00:19] LABS: B Type Natriuretic Peptide 429 pg/mL (<100)
[2020-07-29 01:11] LABS: Lactic Acid 0.8 mmol/L (0.5-2.0)
[2020-07-29 01:40] LABS: Alanine Aminotransferase 38 U/L (0-31); Albumin Level 3.6 g/dL (3.5-5.0); Alkaline Phosphatase 119 U/L (39-117); Anion Gap 12 (12-20); Aspartate Amino Transferase 71 U/L (5-31); Bilirubin Direct 0.2 mg/dL (0.0-0.5); Blood Urea Nitrogen 27 mg/dL (9-16); Calcium 8.8 mg/dL (8.4-10.2); Carbon Dioxide 27 mmol/L (22-29); Chloride 104 mmol/L (96-108); Creatinine Clr Calc Pharmacy 31.3; Estimated Glomerular Filt Rate 45; Glucose Random 122 mg/dL (60-115); Sodium 139 mmol/L (135-145); Total Protein 6.3 g/dL (6.5-8.0)
[2020-07-29 01:50] LABS: Bilirubin Total 0.6 mg/dL (0.0-1.0)
[2020-07-29] MEDS: methylPREDNISolone Sod Succ 125 MG/2 ML VIAL IVPUSH (02:27)
[2020-07-29] MEDS: Acetaminophen 325 MG TABLET 650 MG PO ×2 (02:28→08:28)
[2020-07-29 02:38] LABS: Troponin-I High Sensitivity 194.8 ng/L (<3.5-17.0)
--- NOTE | 2020-07-29 03:05 | P.HPHOSP_ITS ---
History of Present Illness Date of Service: 07/29/20 Chief Complaint: Shortness of breath 80-year-old female with a past medical history of hypertension, CHF, CKD, COPD, diffuse large B-cell lymphoma, degenerative spine disease, tobacco dependence, anxiety, depression, insomnia, history of left upper lobe pulmonary infiltrate presented to the hospital with a chief complaint of shortness of breath. Patient reports that she has been feeling shortness of breath and which has not been improving with her home inhalers hence decided to come to the ER for further evaluation. Denies any dyspnea on exertion. Denies any cough or fevers. Denies any chest pain lightheadedness dizziness. Denies any numbness tingling. Denies any GI or symptoms. Review of all other systems is negative except mentioned above ER course: Per ER team patient was saturating 94% on room air, lung sounds are diminished; given nebulizers and Solu-Medrol. EKG was nonischemic. Troponins are indeterminate. CT angio of the chest was pending. Patient on ambulation desaturating to 86% on room air. Admitted to the hospital for further management. [facility] Medical History Anxiety Benign essential hypertension CHF (congestive heart failure) Chronic kidney disease (CKD), stage III (moderate) Constipation COPD (chronic obstructive pulmonary disease) COPD exacerbation Depression Diffuse large B-cell lymphoma Insomnia Left upper lobe pulmonary infiltrate Lumbar degenerative disc disease (~07/20/20) Smoker Family History Father Diabetes CVD (cardiovascular disease) Mother Chronic mental illness Surgical History No pertinent past surgical history Social History Household Members: Friend(s) Housing: Apartment Do you presently have visiting nurse or other home services: No Alcohol intake: unknown Patient Tobacco Use Status: Tobacco use Unknown Tobacco use type: Cigarette Cigarette Packs Per Day: 0.5 Cigarettes Per Day: 10.0 Smoked in Last 30 Days: Yes e-Cigarette/Vaping Use: Currently Using Patient Interested in Nicotine Replacement: Yes Patient Given Instructions on How to Stop Smoking: Yes Date Education Initiated: 07/29/20 Second Hand Smoke Exposure: Yes Use of substances other than those prescribed or required for medical reasons: No Currently Displaying Signs/Symptoms of Drug Intoxication Withdrawal: No Have you been hit, kicked, punched, or otherwise hurt by someone within the past year? If so, by whom?: No Do you feel safe in your current relationship?: No Is there a partner from a previous relationship who is making you feel unsafe now?: No Are you made to feel afraid or neglected: No Advance Directives: No Advance Directives Information Provided: No Advance Directives on File: No Do you have thoughts of harming others: None Do you have a plan to hurt others: No Plan Recently lost weight without trying: Yes How much weight loss: 34pounds or more Eating poorly because of decreased appetite: Yes Nutrition screen score: 7 Nutrition Risks: Anorexia and Difficulty chewing Patient : No : No Poor oral hygiene: No service: No Current occupational status: retired [employer] Allergies Allergy/AdvReac Type Severity Reaction Status Date / Time Penicillins [PCN] Allergy Severe ANAPHYLAXIS Verified 07/20/20 13:49 nitrofurantoin Allergy Intermediate SHORTNESS Verified 07/20/20 13:49 [From MACROBID] OF BREATH amoxicillin Allergy Unknown Unknown Verified 07/20/20 13:49 penicillin V Allergy Unknown unknown Verified 07/20/20 13:49 tiotropium Allergy Unknown Unknown Verified 07/20/20 13:49 [Spiriva with HandiHaler] barium sulfate AdvReac Intermediate depression Verified 07/20/20 13:49 lisinopril AdvReac Intermediate wild dreams Verified 07/20/20 13:49 varenicline [From Chantix] AdvReac Intermediate depression Verified 07/20/20 13:49 Active Medications: Current Medications Generic Name Dose Route Start Last Admin Trade Name Freq PRN Reason Stop Dose Admin Acetaminophen 650 mg 07/29/20 03:00 Acetaminophen 325 Mg Tablet PO Q6H PRN Pain, Mild (Pain Scale 1-3) Albuterol/Ipratropium 3 ml 07/29/20 03:03 Albuterol/Iprat 2.5/0.5mg 3 Ml Ampul.Neb INHALE RQ4H PRN Shortness of Breath/Wheezing Albuterol/Ipratropium 3 ml 07/29/20 08:00 Albuterol/Iprat 2.5/0.5mg 3 Ml Ampul.Neb INHALE RQ6H WHILE AWAKE [facility] Azithromycin 500 mg 07/29/20 03:00 Azithromycin 500 Mg Tablet PO Q24H [facility] Enoxaparin Sodium 40 mg 07/29/20 03:00 Enoxaparin Sodium 40 Mg/0.4 Ml Syringe SUBCUT Q24H [facility] Levofloxacin 500 mg in 100 mls @ 100 mls/hr 07/29/20 02:00 Levaquin IV Q24H [facility] Methylprednisolone Sodium Succinate 60 mg 07/29/20 03:00 Methylprednisolone Sod Succ 125 Mg/2 Ml Vial IVPUSH Q8H [facility] Nitroglycerin 0.4 mg 07/29/20 03:00 Nitroglycerin 0.4 Mg Tab.Subl SUBLINGUAL Q5M PRN Chest Pain Sodium Chloride 3 ml 07/29/20 08:00 0.9 % Sodium Chloride Flush 3 Ml Syringe IVFLUSH QSHIFT [facility] Home Medications Medication Instructions Recorded Confirmed Last Taken Type albuterol sulfate 2.5 mg INHALATION Q6H PRN 07/20/20 07/29/20 Unknown History docusate sodium 100 mg capsule 100 mg PO DAILY PRN 07/20/20 07/29/20 Unknown History polyethylene glycol 3350 17 17 g PO DAILY PRN g 07/20/20 07/29/20 Unknown History gram/dose oral powder Physical Exam Vital Signs and Narrative: Vital Signs: Last Vital Signs Temp 98.0 F 07/29/20 00:00 Pulse 100 07/29/20 00:00 Resp 18 07/29/20 00:00 BP 184/89 H 07/29/20 00:00 Pulse Ox 99 07/29/20 00:00 Oxygen Flow Rate 2 07/28/20 22:25 Body Mass Index 18.8 Gen: Appears be in no acute distress HEENT: NCAT, Moist mucosa. Pulmonary: Diminished breath sounds CVS: Normal S1-S2 Abdomen: BS+, Soft, Nontender Extremities: Warm well perfused Neuro: Alert and awake. Results Labs CBC and Chem 7: 08/01/20 08:34 08/01/20 08:34 Labs: Laboratory Results - last 24 hr 07/28/20 07/28/20 07/28/20 23:38 23:38 23:38 MCV 103.5 H MCH 33.7 H MCHC 32.6 RDW 14.0 Plt Count 209 MPV 8.4 L Immature Gran % (Auto) 0.5 H Neut % (Auto) 79.2 H Lymph % (Auto) 10.9 L Luna % (Auto) 7.0 Eos % (Auto) 2.0 Baso % (Auto) 0.4 Lymph # (Auto) 1.1 L Luna # (Auto) 0.7 Eos # (Auto) 0.2 Baso # (Auto) 0.0 Abs Immat Gran (auto) 0.05 H Absolute Neuts (auto) 8.0 Absolute Nucleated RBC 0.000 Nucleated RBC % (auto) 0.0 Anion Gap 12 Estim Creat Clear Calc 31.3 Estimated GFR 45 Random Glucose 122 H Lactic Acid Calcium 8.8 Total Bilirubin 0.6 Direct Bilirubin 0.2 AST 71 H ALT 38 H Alkaline Phosphatase 119 H D Troponin I High Sens 59.0 H* B-Natriuretic Peptide Total Protein 6.3 L Albumin 3.6 COVID-19 ([facility]) COVID-19 Clin Com 07/28/20 07/28/20 07/28/20 23:38 23:38 23:40 MCV MCH MCHC RDW Plt Count MPV Immature Gran % (Auto) Neut % (Auto) Lymph % (Auto) Luna % (Auto) Eos % (Auto) Baso % (Auto) Lymph # (Auto) Luna # (Auto) Eos # (Auto) Baso # (Auto) Abs Immat Gran (auto) Absolute Neuts (auto) Absolute Nucleated RBC Nucleated RBC % (auto) Anion Gap Estim Creat Clear Calc Estimated GFR Random Glucose Lactic Acid 0.8 Calcium Total Bilirubin Direct Bilirubin AST ALT Alkaline Phosphatase Troponin I High Sens B-Natriuretic Peptide 429 H Total Protein Albumin COVID-19 ([facility]) Negative COVID-19 Clin Com See Note 07/29/20 01:49 MCV MCH MCHC RDW Plt Count MPV Immature Gran % (Auto) Neut % (Auto) Lymph % (Auto) Luna % (Auto) Eos % (Auto) Baso % (Auto) Lymph # (Auto) Luna # (Auto) Eos # (Auto) Baso # (Auto) Abs Immat Gran (auto) Absolute Neuts (auto) Absolute Nucleated RBC Nucleated RBC % (auto) Anion Gap Estim Creat Clear Calc Estimated GFR Random Glucose Lactic Acid Calcium Total Bilirubin Direct Bilirubin AST ALT Alkaline Phosphatase Troponin I High Sens 194.8 H* D B-Natriuretic Peptide Total Protein Albumin COVID-19 ([facility]) COVID-19 Clin Com Imaging Radiologist's Impressions: Impressions Chest X-Ray 07/28/20 22:30 IMPRESSION: No new acute findings. Previously identified focal left upper lobe opacity from 02/04/2020 appears essentially resolved. Hyperinflated lungs consistent with COPD. Assessment and Plan (1) COPD exacerbation: Status: Acute 80-year-old female with a past medical history of anxiety, depression, insomnia, CHF, COPD, CKD, hypertension, degenerative spine disease presented to the hospital with a chief complaint of shortness of breath. COPD exacerbation: Will give the patient Solu-Medrol. Nebulizations standing and p.r.n. Supplemental oxygen p.r.n. with goal oxygen saturation of 93%. reports cough with yellow sputum- but chronic and unchanged; Levofloxacin Pulmomnary consult. CHF: Will continue home medications. Patient has elevated troponins. Likely demand. Denies any chest pain. EKG nonischemic. Notified Cardiology Dr. Sparrow; follow-up troponins 194 from 59; Given lovenox; ddimer pending. For all other chronic conditions, home medications will be continued DVT prophylaxis: Lovenox Code status: Full code
[2020-07-29] MEDS: Azithromycin 500 MG TABLET PO (04:00)
[2020-07-29] MEDS: Albuterol/Iprat 2.5/0.5MG 3 ML AMPUL.NEB INHALE ×4 (04:42→20:09)
[2020-07-29] MEDS: Enoxaparin Sodium 80 MG/0.8 ML SYRINGE SUBCUT (04:56)
[2020-07-29] MEDS: levoFLOXacin/D5W 750 MG/150 ML PIGGYBACK 100 MG IV (05:00)
[2020-07-29] MEDS: Enoxaparin Sodium 40 MG/0.4 ML SYRINGE SUBCUT (05:01)
--- NOTE | 2020-07-29 05:08 | PC.NURSE ---
Patient is a very difficult stick, unable to access for vascular access. MD aware. Patient has an iv in left hand 20 guage. MD aware that unable to access for CTA and per hospitalist instead draw d-dimer. Patient also taking herself off oxygen on her own accord despite being told by staff to keep Oxygen on. Patient then get short of breath and drops her oxygen staff.
[2020-07-29 05:09] LABS: Basophils Percent Auto 0.3 % (0-2); Eosinophils Percent Auto 0.2 % (0-4); Imm Gran Abs Auto 0.04 X10*3/uL (0.00-0.03); Imm Gran Pct Auto 0.4 % (0.0-0.4); Lymphocytes Absolute Auto 0.5 X10*3/uL (1.2-4.9); Lymphocytes Percent Auto 4.3 % (20-40); MANUAL DIFF FLAG SCAN; Mean Corpuscular HGB Conc 32.4 g/dl (31.0-35.0); Mean Corpuscular Hemoglobin 33.7 pg (27.0-33.0); Mean Corpuscular Volume 103.9 fL (80-98); Mean Platelet Volume 8.7 fL (9.4-12.3); Monocytes Absolute Auto 0.2 X10*3/uL (0.1-1.2); Monocytes Percent Auto 2.2 % (2-11); Neutrophils Absolute Auto 9.9 X10*3/uL (2.0-8.3); Neutrophils Percent Auto 92.6 % (45-73); Platelet Count 270 X10*3/uL (160-400); Red Blood Count 3.56 X10*6/uL (4.20-5.50); Red Cell Distribution Width 13.8 % (11.0-16.0); SCAN SMEAR FLAG 1; White Blood Count 10.7 X10*3/uL (4.8-10.8)
[2020-07-29 05:10] LABS: Prothrombin Time 11.4 SEC (10.8-13.0)
[2020-07-29 05:13] LABS: D Dimer 372 NG/ML; Partial Thromboplastin Time 33.6 SEC (24.1-38.0)
[2020-07-29 05:35] LABS: SLIDE REVIEW VERIFIED
[2020-07-29 05:45] LABS: Anion Gap 19 (12-20); Blood Urea Nitrogen 26 mg/dL (9-16); Calcium 8.8 mg/dL (8.4-10.2); Carbon Dioxide 22 mmol/L (22-29); Chloride 102 mmol/L (96-108); Estimated Glomerular Filt Rate 48; Glucose Random 162 mg/dL (60-115); Magnesium 1.9 mg/dL (1.6-2.6); Potassium 4.1 mmol/L (3.3-5.1); Sodium 139 mmol/L (135-145)
--- NOTE | 2020-07-29 06:18 | PC.NURSE ---
Patient shut her iv off and disconnected herself from oxygen and heart monitor. Patient told to stopped touching the wires and lines
[2020-07-29] MEDS: 0.9 % Sodium Chloride Flush 3 ML SYRINGE IVFLUSH ×2 (08:29→16:59)
--- NOTE | 2020-07-29 08:40 | PC.NURSE ---
Report given to RN on medical floor. Pt given tylenol prior to transfer and 20g IV placed to right forearm in prep for CTA.
--- NOTE | 2020-07-29 10:40 | PC.NURSE ---
Dr. Ward ok'd patient to go down to CT off monitor.
[2020-07-29] MEDS: oxyCODONE HCl Immed Release 5 MG TABLET PO ×2 (11:04→20:04)
[2020-07-29] MEDS: methylPREDNISolone Sod Succ 125 MG/2 ML VIAL 60 MG IVPUSH (11:04)
[2020-07-29] MEDS: Nicotine 14 MG PATCH.TD24 TRANSDERMA (11:05)
--- NOTE | 2020-07-29 12:07 | P.EN_ITS ---
Event Note Date of Service: 07/29/20 Event Note: This 80 years old female a case of advanced chronic obstructive pu lmonary disease and active smoker. Is admitted for with acute exacerbation of COPD. She is seen by me this morning for pulmonary consultation. Complete consultation note is dictated. A: ACTIVE SMOKER. ACUTE EXACERBATION OF COPD. THERE IS NO EVIDENCE OF PNEUMONIA. P: IV SOLU-MEDROL, DOES MAY BE REDUCED TO 40 MG Q.12 HOURS DUONEB UPDRAFTS Q 6 HOURS WHILE AWAKE. O2 2 L/MINUTE TO KEEP O2 SAT ABOVE 90%. SMOKING CESSATION NEEDS TO BE IN FORCED.
[2020-07-29 12:09] LABS: Glucose Urine UA NEG (NEG); Leukocyte Esterase Urine 2+ (NEG); Nitrite Urine NEG (NEG); UACC Culture Trigger YES; Urine Blood TRACE (NEG); Urine Ketones NEG (NEG); Urine Protein TRACE MG/DL (NEG-TRACE)
[2020-07-29 12:11] LABS: Appearance Urine CLEAR; Color Urine YELLOW
[2020-07-29 12:13] LABS: Troponin-I High Sensitivity 480.8 ng/L (<3.5-17.0)
[2020-07-29 12:24] LABS: Bacteria Urine 1+ /LPF; Squamous Epithelial Cell Urine 1+ /LPF
--- NOTE | 2020-07-29 13:08 | MHC.CM.PN ---
NURSE CARE MANGER NOTE ELECTRONIC MEDICAL RECORD REVIEWED ALONG WITH CASE DISCUSSED ON MULTIPLE DISCIPLINARY ROUNDS MET WITH PATIENT AND WITH HER DAUGHTER ROD, WITH PATIENTS PERMISSION HER DAUGHTER REMAINED PRESENT DURING THE CASE MANAGEMENT ASSESSMENT PATIENT RENTS A ROOOM AT A FRIENDS HOME SHE HAS A NEBULIZER SHE BELIEVES IT IS FROM [facility], SHE REPORTS THAT SHE IS INDEPENDENT IN HER ADLS AND MOBILITY SHE HAS A HOME HEALTH AIDE COUPLE TIMES A WEEK FOR[facility] TO HELP WITH [employer] SHOPPING SHE HAS NO VNA SERVICES. SHE IS ANTICIPATED TO BE HERE A FEW DAYS DISCHARGE PLAN RETURN HOME WITH NEW REFERRAL TO THE [facility] FOR DIAGNOSIS ASSESSMENT , SIGN .SYMPTOM MANAGEMENT (STILL SMOKES ABOUT 10 CIGARETTES dY DX WITH LARGE B CELL LYMPHOMA , CKD, CHF,COPD, DDD) SHE REPORTED THAT HER HEALTH CARE PROXY IS HER DAUGHTER ROD [phone] (SHE IS HERE NOW AND LIVES IN [facility] - WITH PLANS TO TAKE HER BACK FOR A MONTH OR TWO HOME WITH HER)) SELF RESUMPTION OF HER HOUSTON CARE [facility] SELF RESUMPTION OF HER DME SERVICES FOR HER NEBULAIZER. PCP DR KHADIJAH BATRES PULMOPNARY DR BROWN RECIVED COVID VACINATION MODERNA 2ND DOSE 3 WEEKS AGO TRANSPORTATION FAMILY MEDICARE IMM COMPLETED
--- NOTE | 2020-07-29 13:32 | P.CONCA_ITS ---
History of Present Illness History of Present Illness Date of Service: 07/29/20 <MARRY Ramirez - Last Filed: 07/29/20 14:15> 07/29/20 <Geovanny Sparrow MD - Last Filed: 07/29/20 16:34> Requesting physician: Byron Rebolledo <MARRY Ramirez - Last Filed: 07/29/20 14:15> Consult reason: shortness of breath and troponin elevation <MARRY Ramirez - Last Filed: 07/29/20 14:15> Chief complaint: SOB <MARRY Ramirez - Last Filed: 07/29/20 14:15> Narrative: Mercedes is an 80 yo female with PMH of HTN, COPD, current smoking, no known cardiac history, who presented to the ED with report of increased shortness of breath. She was noted to have hypoxia with sats 86% with ambulation. EKG showed no ischemia. CXR with no acute findings, with hyperinflation. Troponin 28, then 59. She was treated with nebulizers and solumedrol. Admitted to med/ surg with tele monitoring. Cardiology consulted for further evaluation of elevated troponin levels. Today she reports that in the last few days her breathing has worsened. She relates it to the increased humidity and high temperatures. She uses nebulizer treatments at home and does not use home O2. She continues to smoke up to 5 cigarettes daily. Today she continues to feel short of breath but states it is improved some. No cough, PND, slept with HOB elevated some. Does not get chest pains, palpitations, dizziness or leg edema. 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 Lives in home with friend. <MARRY Ramirez - Last Filed: 07/29/20 14:15> Review of Systems Review of Systems: as above <MARRY Ramirez - Last Filed: 07/29/20 14:15> Yes all other systems are reviewed and are negative <MARRY Ramirez - Last Filed: 07/29/20 14:15> [facility] Past Medical History Medical History: Medical History Anxiety Benign essential hypertension CHF (congestive heart failure) Chronic kidney disease (CKD), stage III (moderate) Constipation COPD (chronic obstructive pulmonary disease) COPD exacerbation Depression Diffuse large B-cell lymphoma Insomnia Left upper lobe pulmonary infiltrate Lumbar degenerative disc disease (~07/20/20) Smoker <MARRY Ramirez - Last Filed: 07/29/20 14:15> Family History Family History: Family History Father Diabetes CVD (cardiovascular disease) Mother Chronic mental illness <MARRY Ramirez - Last Filed: 07/29/20 14:15> Surgical History Surgical History: Surgical History No pertinent past surgical history <MARRY Ramirez - Last Filed: 07/29/20 14:15> Social History Social History: Social History Household Members: Friend(s) Housing: Apartment Do you presently have visiting nurse or other home services: No Alcohol intake: unknown Patient Tobacco Use Status: Tobacco use Unknown Tobacco use type: Cigarette Cigarette Packs Per Day: 0.5 Cigarettes Per Day: 10.0 Smoked in Last 30 Days: Yes e-Cigarette/Vaping Use: Currently Using Patient Interested in Nicotine Replacement: Yes Patient Given Instructions on How to Stop Smoking: Yes Date Education Initiated: 07/29/20 Second Hand Smoke Exposure: Yes Use of substances other than those prescribed or required for medical reasons: No Have you been hit, kicked, punched, or otherwise hurt by someone within the past year? If so, by whom?: No Do you feel safe in your current relationship?: No Is there a partner from a previous relationship who is making you feel unsafe now?: No Are you made to feel afraid or neglected: No Advance Directives: No Advance Directives Information Provided: No Advance Directives on File: No Do you have thoughts of harming others: None Recently lost weight without trying: Yes How much weight loss: 34pounds or more Eating poorly because of decreased appetite: Yes Nutrition screen score: 7 Nutrition Risks: Anorexia and Difficulty chewing Patient : No : No Poor oral hygiene: No service: No Current occupational status: retired <MARRY Ramirez - Last Filed: 07/29/20 14:15> Meds Allergies/Adverse reactions: Allergies Allergy/AdvReac Type Severity Reaction Status Date / Time Penicillins [PCN] Allergy Severe ANAPHYLAXIS Verified 07/20/20 13:49 nitrofurantoin Allergy Intermediate SHORTNESS Verified 07/20/20 13:49 [From MACROBID] OF BREATH amoxicillin Allergy Unknown Unknown Verified 07/20/20 13:49 penicillin V Allergy Unknown unknown Verified 07/20/20 13:49 tiotropium Allergy Unknown Unknown Verified 07/20/20 13:49 [Spiriva with HandiHaler] barium sulfate AdvReac Intermediate depression Verified 07/20/20 13:49 lisinopril AdvReac Intermediate wild dreams Verified 07/20/20 13:49 varenicline [From Chantix] AdvReac Intermediate depression Verified 07/20/20 13:49 <MARRY Ramirez - Last Filed: 07/29/20 14:15> Active Medications: Current Medications Generic Name Dose Route Start Last Admin Trade Name Freq PRN Reason Stop Dose Admin Acetaminophen 650 mg 07/29/20 03:00 07/29/20 08:28 Acetaminophen 325 Mg Tablet PO 650 mg Q6H PRN Administration Pain, Mild (Pain Scale 1-3) Albuterol/Ipratropium 3 ml 07/29/20 03:03 07/29/20 04:42 Albuterol/Iprat 2.5/0.5mg 3 Ml Ampul.Neb INHALE 3 ml RQ4H PRN Administration Shortness of Breath/Wheezing Albuterol/Ipratropium 3 ml 07/29/20 08:00 07/29/20 13:30 Albuterol/Iprat 2.5/0.5mg 3 Ml Ampul.Neb INHALE 3 ml RQ6H WHILE AWAKE MELANIE Administration Enoxaparin Sodium 40 mg 07/29/20 03:00 07/29/20 05:01 Enoxaparin Sodium 40 Mg/0.4 Ml Syringe SUBCUT 40 mg Q24H MELANIE Administration Levofloxacin 250 mg 07/30/20 06:00 Levofloxacin 250 Mg Tablet PO Q24H MELANIE Methylprednisolone Sodium Succinate 40 mg 07/29/20 20:00 Methylprednisolone Sod Succ 40 Mg/Ml Vial IVPUSH Q8H MELANIE Nicotine 14 mg 07/29/20 10:45 07/29/20 11:05 Nicotine 14 Mg Patch.Td24 TRANSDERMA 14 mg DAILY MELANIE Administration Nitroglycerin 0.4 mg 07/29/20 03:00 Nitroglycerin 0.4 Mg Tab.Subl SUBLINGUAL Q5M PRN Chest Pain Oxycodone HCl 5 mg 07/29/20 10:35 07/29/20 11:04 Oxycodone Hcl Immed Release 5 Mg Tablet PO 5 mg Q6H PRN Administration Pain, Severe (Pain Scale 7-10) Pharmacy Consult 1 each 07/29/20 07:18 Consult Rx Other Drug Dosing MISCELLANE DAILY PRN Consult order Pharmacy Consult 1 each 07/29/20 10:41 Consult Rx Perform Med Rec MISCELLANE ONCE PRN Consult order Sodium Chloride 3 ml 07/29/20 08:00 07/29/20 08:29 0.9 % Sodium Chloride Flush 3 Ml Syringe IVFLUSH 3 ml QSHIFT MELANIE Administration <MARRY Ramirez - Last Filed: 07/29/20 14:15> Home medications: Home Medications Medication Instructions Recorded Confirmed Last Taken Type albuterol sulfate 2.5 mg INHALATION Q6H PRN 07/20/20 07/29/20 Unknown History docusate sodium 100 mg capsule 100 mg PO DAILY PRN 07/20/20 07/29/20 Unknown History polyethylene glycol 3350 17 17 g PO DAILY PRN g 07/20/20 07/29/20 Unknown History gram/dose oral powder <MARRY Ramirez - Last Filed: 07/29/20 14:15> Physical Exam Vital Signs: Vital Signs: Last Vital Signs Temp 97.3 F 07/29/20 11:42 Pulse 104 H 07/29/20 11:42 Resp 19 07/29/20 11:42 BP 147/68 H 07/29/20 11:42 Pulse Ox 95 07/29/20 11:42 Oxygen Flow Rate 2 07/28/20 22:25 Body Mass Index 18.8 <MARRY Ramirez - Last Filed: 07/29/20 14:15> Const: General: cooperative, no acute distress, alert and awake <MARRY Ramirez - Last Filed: 07/29/20 14:15> Orientation/consciousness: patient oriented x3 <Bess Dhillon [employer] - Last Filed: 07/29/20 14:15> Neck: Neck: Yes normal visual inspection and Yes no JVD <Bess Alejo [employer] - Last Filed: 07/29/20 14:15> Resp: Other: mildly increased respiratory effort. Lungs diminished throughout <Bess Alejo [employer] - Last Filed: 07/29/20 14:15> Effort & Inspection: able to speak in complete sentences <[facility] - Last Filed: 07/29/20 14:15> Auscultation: clear to auscultation bilaterally, no crackles, no rales, no rhonchi and no wheezes <[facility] Alejo -C - Last Filed: 07/29/20 14:15> Cardio: Palpation: normal PMI <Bess Alejo [employer] - Last Filed: 07/29/20 14:15> Rate: regular rate <Bess M Alejo -C - Last Filed: 07/29/20 14:15> Rhythm: regular rhythm <[facility] Alejo [employer] - Last Filed: 07/29/20 14:15> Heart sounds: S1 normal heart sound present and S2 normal heart sound present <[facility] Alejo [employer] - Last Filed: 07/29/20 14:15> Peripheral pulses: Peripheral pulses 2+ throughout <Bess Alejo -C - Last Filed: 07/29/20 14:15> GI: Inspection: Yes normal to inspection <Bess Alejo [employer] - Last Filed: 07/29/20 14:15> Neuro: General: patient oriented x3 <Bess Alejo [employer] - Last Filed: 07/29/20 14:15> Extrem: General: Yes normal to inspection and No edema <Bess Alejo [employer] - Last Filed: 07/29/20 14:15> Results Labs and Meds Result diagrams: : 07/29/20 04:35 07/29/20 04:35 <Bess Dhillon [employer] - Last Filed: 07/29/20 14:15> Lab results: Laboratory Results - last 24 hr 07/28/20 07/28/20 07/28/20 23:38 23:38 23:38 WBC 10.0 RBC 3.41 L Hgb 11.5 L Hct 35.3 L MCV 103.5 H MCH 33.7 H MCHC 32.6 RDW 14.0 Plt Count 209 MPV 8.4 L Immature Gran % (Auto) 0.5 H Neut % (Auto) 79.2 H Lymph % (Auto) 10.9 L Wetzel % (Auto) 7.0 Eos % (Auto) 2.0 Baso % (Auto) 0.4 Lymph # (Auto) 1.1 L Wetzel # (Auto) 0.7 Eos # (Auto) 0.2 Baso # (Auto) 0.0 Abs Immat Gran (auto) 0.05 H Absolute Neuts (auto) 8.0 Absolute Nucleated RBC 0.000 Nucleated RBC % (auto) 0.0 Smear Tech's Comments PT INR APTT D-Dimer Sodium 139 Potassium 4.0 Chloride 104 Carbon Dioxide 27 Anion Gap 12 BUN 27 H Creatinine 1.16 Estim Creat Clear Calc 31.3 Estimated GFR 45 Random Glucose 122 H Lactic Acid Calcium 8.8 Magnesium Total Bilirubin 0.6 Direct Bilirubin 0.2 AST 71 H ALT 38 H Alkaline Phosphatase 119 H D Troponin I High Sens 59.0 H* B-Natriuretic Peptide Total Protein 6.3 L Albumin 3.6 Urine Color Urine Appearance Urine pH Ur Specific [place] Urine Protein Urine Glucose (UA) Urine Ketones Urine Blood Urine Nitrite Ur Leukocyte Esterase Urine RBC Urine WBC Ur Squamous Epith Cells Urine Bacteria COVID-19 ([facility]) COVID-19 Clin Com 07/28/20 07/28/20 07/28/20 23:38 23:38 23:40 WBC RBC Hgb Hct MCV MCH MCHC RDW Plt Count MPV Immature Gran % (Auto) Neut % (Auto) Lymph % (Auto) Wetzel % (Auto) Eos % (Auto) Baso % (Auto) Lymph # (Auto) Wetzel # (Auto) Eos # (Auto) Baso # (Auto) Abs Immat Gran (auto) Absolute Neuts (auto) Absolute Nucleated RBC Nucleated RBC % (auto) Smear Tech's Comments PT INR APTT D-Dimer Sodium Potassium Chloride Carbon Dioxide Anion Gap BUN Creatinine Estim Creat Clear Calc Estimated GFR Random Glucose Lactic Acid 0.8 Calcium Magnesium Total Bilirubin Direct Bilirubin AST ALT Alkaline Phosphatase Troponin I High Sens B-Natriuretic Peptide 429 H Total Protein Albumin Urine Color Urine Appearance Urine pH Ur Specific [place] Urine Protein Urine Glucose (UA) Urine Ketones Urine Blood Urine Nitrite Ur Leukocyte Esterase Urine RBC Urine WBC Ur Squamous Epith Cells Urine Bacteria COVID-19 ([facility]) Negative COVID-19 Clin Com See Note 07/29/20 07/29/20 07/29/20 01:49 04:35 04:35 WBC 10.7 RBC 3.56 L Hgb 12.0 Hct 37.0 MCV 103.9 H MCH 33.7 H MCHC 32.4 RDW 13.8 Plt Count 270 D MPV 8.7 L Immature Gran % (Auto) 0.4 Neut % (Auto) 92.6 H Lymph % (Auto) 4.3 L Wetzel % (Auto) 2.2 Eos % (Auto) 0.2 Baso % (Auto) 0.3 Lymph # (Auto) 0.5 L Wetzel # (Auto) 0.2 Eos # (Auto) 0.0 Baso # (Auto) 0.0 Abs Immat Gran (auto) 0.04 H Absolute Neuts (auto) 9.9 H Absolute Nucleated RBC 0.000 Nucleated RBC % (auto) 0.0 Smear Tech's Comments VERIFIED PT INR APTT D-Dimer Sodium 139 Potassium 4.1 Chloride 102 Carbon Dioxide 22 Anion Gap 19 BUN 26 H Creatinine 1.10 Estim Creat Clear Calc 33.0 Estimated GFR 48 Random Glucose 162 H Lactic Acid Calcium 8.8 Magnesium 1.9 Total Bilirubin Direct Bilirubin AST ALT Alkaline Phosphatase Troponin I High Sens 194.8 H* D B-Natriuretic Peptide Total Protein Albumin Urine Color Urine Appearance Urine pH Ur Specific [place] Urine Protein Urine Glucose (UA) Urine Ketones Urine Blood Urine Nitrite Ur Leukocyte Esterase Urine RBC Urine WBC Ur Squamous Epith Cells Urine Bacteria COVID-19 ([facility]) COVID-19 Clin Com 07/29/20 07/29/20 07/29/20 04:35 11:18 11:25 WBC RBC Hgb Hct MCV MCH MCHC RDW Plt Count MPV Immature Gran % (Auto) Neut % (Auto) Lymph % (Auto) Wetzel % (Auto) Eos % (Auto) Baso % (Auto) Lymph # (Auto) Wetzel # (Auto) Eos # (Auto) Baso # (Auto) Abs Immat Gran (auto) Absolute Neuts (auto) Absolute Nucleated RBC Nucleated RBC % (auto) Smear Tech's Comments PT 11.4 INR 1.0 APTT 33.6 D-Dimer 372 Sodium Potassium Chloride Carbon Dioxide Anion Gap BUN Creatinine Estim Creat Clear Calc Estimated GFR Random Glucose Lactic Acid Calcium Magnesium Total Bilirubin Direct Bilirubin AST ALT Alkaline Phosphatase Troponin I High Sens 480.8 H* D B-Natriuretic Peptide Total Protein Albumin Urine Color YELLOW Urine Appearance CLEAR Urine pH 6.0 Ur Specific [place] 1.020 Urine Protein TRACE Urine Glucose (UA) NEG Urine Ketones NEG Urine Blood TRACE Urine Nitrite NEG Ur Leukocyte Esterase 2+ H Urine RBC 1-4 Urine WBC 15-29 H Ur Squamous Epith Cells 1+ Urine Bacteria 1+ COVID-19 ([facility]) COVID-19 Clin Com <MARRY Ramirez - Last Filed: 07/29/20 14:15> Imaging Radiologist's impression: Impressions Chest X-Ray 07/28/20 22:30 IMPRESSION: No new acute findings. Previously identified focal left upper lobe opacity from 02/04/2020 appears essentially resolved. Hyperinflated lungs consistent with COPD. Chest CTA 07/29/20 01:52 IMPRESSION: No evidence of PE. No evidence aortic dissection or aneurysm. Right lower lobe chronic atelectasis or consolidation, new since 2019. Left upper lobe infiltrative mass has resolved. Diffuse emphysema mild bronchial wall thickening and intrabronchiolar debris in both lower lobes. Likely right hepatic cyst VTE: negative <MARRY Ramirez - Last Filed: 07/29/20 14:15> Assessment and Plan (1) Shortness of breath: Status: Acute <MARRY Ramirez - Last Filed: 07/29/20 14:15> Admit with increased sob. Has chronic COPD, continues to smoke. Being treated for COPD exacerbation. D dimer elevated at 372. CTA of chest this am shows no PE. BNP elevated at 429. Has been similar in past. On exam she does not appear to have acute heart failure. Troponin elevated - see below. Echo pending. Ongoing management of her COPD. Heart rates running 100-110 - Recommend use of levalbuteral over albuteral. <MARRY Ramirez - Last Filed: 07/29/20 14:15> (2) Elevated troponin: Status: Acute <MARRY Ramirez - Last Filed: 07/29/20 14:15> Troponin normally initially. Has risen to 480 today. No chest pains. EKG yesterday with Sinus tachycardia, no ischemia. poor R wave progression, with anterolateral q waves. Different from prior. She denies any cardiac history. Has cardiac risk factors of age, smoking, CKD, family hx. Troponin elevation most likely related to myocardial injury in setting of hypoxia. Less likely to be acute plaque rupture. No need for anticoagulation at this time. Will check Echo to assess for EF, wall motion abnormalities. Will repeat EKG today to eval for changes. Will start on aspirin 81 mg daily and Atorvastatin 40mg daily. Labs show LDL 135. LFTs mildly elevated this admit. Recommend recheck in am. Once breathing improved, will plan for nuclear stress test as outpt. We will follow along. <MARRY Ramirez - Last Filed: 07/29/20 14:15> Patient seen and examined. Case discussed with Bess. Patient present with hypoxia shortness of breath which appears to be secondary to COPD exacerbation, see below. There has chronically elevated BNP unlikely to be in CHF at this point time. Could be due to RV strain from hypoxia and advancing COPD. Troponin elevation with rise and fall suggestive myocardial injury secondary to hypoxemia and COPD exacerbation. Could also be due to RV strain. There is no evidence of pulmonary embolism. Unlikely to represent acute coronary syndrome due to plaque rupture. There is no need for oral anticoagulation. However given her multiple risk factors will require ischemic evaluation. Repeat EKG. Continue to trend troponin till there is down trending of the troponin. Aspirin and statin therapy. Better blood pressure control needs to be pursued. Consider adding amlodipine to her regimen for better blood pressure control. Given her significant bronchospasm not sure if we can increase her atenolol therapy. Discussed with Pulmonary about the same. <Geovanny Sparrow MD - Last Filed: 07/29/20 16:34> (3) Abnormal EKG: Status: Acute <MARRY Ramirez - Last Filed: 07/29/20 14:15> as above <MARRY Ramirez - Last Filed: 07/29/20 14:15> (4) COPD exacerbation: Status: Acute <MARRY Ramirez - Last Filed: 07/29/20 14:15> COPD exacerbation due to continued smoking advanced COPD. Advised complete smoking cessation. She is wanting to. Consider starting Chantix, she is agreeable for the same. Continue nicotine patch. Continue bronchodilators and steroid treatment. Will follow with the patient. <Geovanny Sparrow MD - Last Filed: 07/29/20 16:34> Procedures Date of Service Date of Service: 07/29/20 <Bess Dhillon NP-[facility] - Last Filed: 07/29/20 14:15>
--- NOTE | 2020-07-29 14:12 | MHC.CLN ---
RE: CONSULT PT IS SLIGHTLY UNDER WT FOR HT. PT IS 90% IBW AND BMI 18.8 PT WITH SLOW NONSIGNIFCANT WT LOSS OVER PAST 2 YEARS PREVIOUS WT HX REVEALS 125# (03/02/19), 6% WT LOSS NON SIGNIFICANT 144# (03/07/2018) 19% X 2 YEARS NONSIGNIFICANT PT DOES NOT HAVE SIGNIFICANT WT LOSS AT THIS TIME DIET RX: CARDIAC-APPROPRIATE CAN LIBERALIZE DIET IF PO INTAKE REMAINS POOR RECOMMEND ADDING ENSURE BID TO INCREASE KCALS SUPPLEMENT PROVIDES 700KALS, 40G PROTEIN MONITOR PO INTAKE CLOSELY SEE ALSO CLINICAL NUTRITION ASSESSMENT
[2020-07-29] MEDS: Aspirin 81 MG TAB.CHEW PO (14:26)
[2020-07-29] MEDS: LORazepam 1 MG TABLET PO (14:26)
[2020-07-29] MEDS: atenoloL 25 MG TABLET PO (14:26)
[2020-07-29] MEDS: Atorvastatin Calcium 40 MG TABLET PO (20:02)
[2020-07-29] MEDS: methylPREDNISolone Sod Succ 40 MG/ML VIAL IVPUSH (20:02)
--- NOTE | 2020-07-29 22:32 | CONS_ITS ---
DATE OF SERVICE: 07/29/2020 HISTORY OF PRESENT ILLNESS: This patient is an 80-year-old female, well known to our office and she is being treated for advanced chronic obstructive pulmonary disease. Unfortunately, she continues to smoke and has not been able to quit. Her main treatment at home includes DuoNeb updrafts 3 to 4 times a day. She has not qualified for oxygen. Recently, she has been found to have an infiltrate in the left upper lobe and treated with a course of antibiotic. This infiltrate has resolved. Patient has been calling with complaint of increased shortness of breath for the last several days but she was not able to come to the office. Finally, she ended up in the emergency room during the night and has been admitted for further care. PAST MEDICAL HISTORY: Additional past medical history includes hypertension; chronic congestive heart failure; chronic kidney disease; diffuse large B-cell lymphoma, which is in remission; she also has degenerative arthritis of the spine; chronic anxiety; chronic depression. Her main issue is stubborn dependence on tobacco, and she is not able to quit. REVIEW OF SYSTEMS: Mainly as noted in the history of present illness. In addition, she complains of generalized weakness, somewhat unstable gait and ongoing anxiety. PHYSICAL EXAMINATION: GENERAL: An 80-year-old female is of a thin build, very pleasant but anxious, sitting up in the bed, moderately short of breath. VITAL SIGNS: Respiratory rate is 20. EAR, NOSE, THROAT: Normal. There is no evidence of any infection. NECK: No JVD. Carotids normal. Trachea in midline. CHEST: Symmetrical. Percussion note is hyperresonant. Breath sounds are distant with prolonged expiratory phase. Patient does not have any localized or scattered wheezes or rhonchi. CARDIAC: Within normal range. No murmur or gallop. ABDOMEN: Flat. No palpable mass. No tenderness. EXTREMITIES: No edema or varicosities. Peripheral pulses are faintly palpable. DIAGNOSTIC DATA: Chest x-ray shows hyperinflated lungs and no acute abnormalities noted. A focal infiltrate in the left upper lobe, which was noted in January 2020 has almost resolved. LABORATORY DATA: White cell count 10.7, hemoglobin 12, eosinophil count 0.2. The electrolytes are normal. BUN 26, slightly elevated; and creatinine 1.1. IMPRESSION: 1. Advanced chronic obstructive pulmonary disease. 2. Active smoker. 3. Mild acute exacerbation of chronic obstructive pulmonary disease. 4. Anxiety neurosis. RECOMMENDATION: She will need IV Solu-Medrol for 24 hours and then may be a course of oral prednisone. DuoNeb updrafts q.6 hours while awake. Albuterol 2 puffs q.4 to 6 hours p.r.n. Patient needs to be on quit smoking program. I do not think she needs any antibiotic therapy at this time. Thank you very much for asking me to see this patient. Sincerely, MD ZHUAIR Nelson/FIDEL / [phone]
[2020-07-30] VITALS (10 sets, daily range): BP systolic 131–160; BP diastolic 58–86; PULSE 75–98; RESP 14–20; TEMP 35.7–36.7; O2SAT 91–100
--- NOTE | 2020-07-30 | ECG_ITS ---
Test Reason : NSTEMI Blood Pressure : / mmHG Vent. Rate : 088 BPM Atrial Rate : 088 BPM P-R Int : 122 ms QRS Dur : 080 ms QT Int : 398 ms P-R-T Axes : 066 052 244 degrees QTc Int : 481 ms Normal sinus rhythm Septal infarct (cited on or before 04-FEB-2020) T wave abnormality, consider inferior ischemia T wave abnormality, consider anterolateral ischemia Abnormal ECG When compared with ECG of 29-JUL-2020 14:36, Significant changes have occurred Referred By: Theo Ward Electronically Signed By:JUAN DOCKERY MD
--- NOTE | 2020-07-30 | CA_ITS ---
Acquisition Time: 2020-08-02 09:35:08 Total Exercise Time: 00:02:00 Test Indications: Screening for CAD Medications: SEE EMAR Protocol: LEXISCAN Max HR: 120 BPM 86% of Pred: 138 BPM Max BP: 166/070 mmHG Max Work Load: 1.0 METS Pharmacological stress test with Lexiscan injection, while sitting and kicking her legs, with moderate shortness of breath, no chest discomfort, with isolated PVC, with normotensive response to injection, with nondiagnostic EKG for ischemia. In recovery her shortness of breath was treated with Aminophylline 75mg IVP to reverse Lexiscan with improvement in breathing back to baseline. Nuclear images pending. Test reviewed with Dr Smith. Referred By: Bess Dhillon Overread By: BESS DHILLON
[2020-07-30] MEDS: 0.9 % Sodium Chloride Flush 3 ML SYRINGE IVFLUSH ×4 (00:06→20:45)
[2020-07-30] MEDS: Enoxaparin Sodium 40 MG/0.4 ML SYRINGE SUBCUT (03:31)
[2020-07-30] MEDS: methylPREDNISolone Sod Succ 40 MG/ML VIAL IVPUSH ×3 (03:31→20:44)
[2020-07-30] MEDS: LORazepam 1 MG TABLET PO ×2 (05:13→18:15)
[2020-07-30] MEDS: levoFLOXacin 250 MG TABLET PO (05:14)
[2020-07-30 05:31] LABS: Prothrombin Time 11.9 SEC (10.8-13.0)
--- NOTE | 2020-07-30 07:30 | CA_ITS ---
Transthoracic Echocardiogram Patient (Last, First, Middle): Mercedes Maravilla V Gender: Female Date of : 1940 Age: 80 Procedure Date: 07/30/2020 Procedure Type: Transthoracic Echocardiogram Location: S3E Height: 167.64 cm Weight: 53.07 kg BSA: 1.59 m2 Heart Rate: bpm BP: 161 / 91 mmHg Rv Repairer: Referring MD: Byron Rebolledo MD Asphalt Distributor Tender: Geovanny Sparrow MD Symptoms: high troponins; chf Study Quality: Fair ECG Rhythm: Sinus Conclusions: - 1. Technically difficult study due to off axis views 2. Moderate to severe LV systolic dysfunction with mid and apical segment hypokinesis, finding overall suggestive of stress-induced cardiomyopathy, CAD cannot be entirely ruled out 3. Mild mitral regurgitation 4. Mildly elevated right ventricular systolic pressure 5. No pericardial effusion Findings Left Ventricle Normal left ventricular cavity size. There is normal left ventricular wall thickness. The left ventricular systolic function is moderate to severely decreased. The visually estimated ejection fraction is between 30-35%. There is evidence of regional wall motion abnormalities. Spectral Doppler is indicative of an impaired relaxation filling pattern. E/E prime ratio is between 8 and 15 consistent with indeterminate filling pressures. Wall Motion Rest Echo Findings The entire apex, the mid anterior, mid inferior, mid anterolateral, mid inferoseptal, mid anteroseptal, and mid inferolateral segments are hypokinetic. All other scored wall segments showed normal motion. Right Ventricle Normal right ventricular cavity size and systolic function. Atria The left atrium is likely dilated. There is no evidence of interatrial shunt. The right atrium is normal in size. Aortic Valve The aortic valve was not well visualized. There is mild calcification of the aortic valve. There is no aortic valve regurgitation. Mildly increased gradient across aortic valve, however this is possibly suggestive of mild aortic stenosis. Aortic stenosis is not accurately evaluated on this study Mitral Valve There is moderate anterior and posterior mitral leaflet thickening. There is moderate mitral annular calcification. There is mild mitral valve regurgitation. There is no mitral valve stenosis. Pulmonic Valve The pulmonic valve was not well visualized. Tricuspid Valve Likely normal tricuspid valve structure and function. There is no tricuspid valve regurgitation. The right ventricular systolic pressure is 40 mmHg. Mild pulmonary hypertension is present. Great Vessels All visible segments of the aorta are normal in size. The pulmonary artery was not well visualized. Venous The inferior vena cava is normal in size and collapses greater than 50% with inspiration. Pericardium/Pleural There is no evidence of pericardial effusion. Prior Study Comparison Significant changes compared to prior study dated: 02/28/2018. LV systolic function is reduced and regional wall motion abnormality are noted on this study Measurements 2D Linear Measurements IVSd: 1.09 0.6-0.9/0.6-1.0 cm LVIDd: 4.47 3.9-5.3/4.2-5.9 cm LVIDd Index: 2.81 2.4-3.2/2.2-3.1 cm/m2 LVIDs: 3.85 2.0-3.6 cm LVPWd: 1.09 0.7-1.1 cm LA Diam: 3.50 2.7-3.8/3.0-4.0 cm LAIDs Index: 2.20 1.5-2.3 cm/m2 LV Mass: 212.96 67-162/88-224 g LV Mass Index: 133.93 43-95/49-115 g/m2 LVOT Diam: 2.10 3.0+(-)1.3 cm Mitral Valve MV Pk E: 0.56 MV PK A: 0.79 MV Decel Time: 115.00 E/A: 0.70 E'Lateral: 2.94 E'Medial: 3.92 E/E' Med: 14.30 E/E' Lat: 19.10 PHT: 34.00 MVA PHT: 6.47 Decel Bleckley: 4.87 Aortic Valve AoV Pk Timoteo: 2.00 AoV Mn Tim[place]o: 1.26 AoV VTI: 0.43 AoV Pk Grad: 16.00 Aov Mn Grad: 8.00 CURTIS Cont.VTI: 0.93 LVOT LVOT Pk [place]: 0.57 LVOT Mn [place]o: 0.34 LVOT VTI: 0.12 LVOT Pk Grad: 1.00 LVOT Mn Grad: 1.00 LVOT Diam: 2.10 LVOT Area: 3.46 Diastolic Function MV Pk E: 0.56 MV Pk A: 0.79 E/A: 0.70 E'Medial: 3.92 E/E' Med: 14.30 E' Laterial: 2.94 E/E' Lat: 19.10 Tricuspid Valve TR Pk Tim[place]o: 3.04 TR Pk Grad: 37.00 RA Press: 3.00 RVSP: 40.00 Pulmonary Valve PV Pk Tim[place]o: 1.71 Peak PV Grad: 12.00 Updated in Other Vendor System with Status of Final Geovanny Sparrow MD electronically signed on 07/30/2020 1:55:03 PM with status of Final
--- NOTE | 2020-07-30 08:16 | P.PNIM_ITS ---
Subjective Subjective Date of Service: 07/30/20 Interval History: Seen in follow up for acute respiratoyr failure, COPD exacerbation and now elevated troponin I, she feels better with no chest pain this morning and no chest pain. I was at bedside with bone density technician and could appreciate wall motion abnormalities--cardiology to verify for sure Review of Systems Gen: no fever Resp: + sob, n+ cough CV: no chest, no BOWERS, no leg edema GI: No n/v, no abd pain Neuro: No confusion Physical Exam Vital Signs: Vital Signs: Last Vital Signs Temp 97 F 07/30/20 07:11 Pulse 91 07/30/20 07:11 Resp 20 07/30/20 07:11 BP 149/83 H 07/30/20 07:11 Pulse Ox 99 07/30/20 07:11 Oxygen Flow Rate 2 07/28/20 22:25 Body Mass Index 18.8 Const: General: cooperative, no acute distress, alert and awake Orientation/consciousness: patient oriented x3 Neck: Neck: Yes normal visual inspection and Yes no JVD Resp: Other: normal respiratory effort Effort & Inspection: able to speak in complete sentences Auscultation: clear to auscultation bilaterally, no crackles, no rales, no rhonchi and no wheezes Cardio: Palpation: normal PMI Rate: regular rate Rhythm: regular rhythm Heart sounds: S1 normal heart sound present and S2 normal heart sound present Peripheral pulses: Peripheral pulses 2+ throughout GI: Inspection: Yes normal to inspection Neuro: General: patient oriented x3 Extrem: General: Yes normal to inspection and No edema Objective Data Current Medications Generic Name Dose Route Start Last Admin Trade Name Abdiasq PRN Reason Stop Dose Admin Acetaminophen 650 mg 07/29/20 03:00 07/29/20 08:28 Acetaminophen 325 Mg Tablet PO 650 mg Q6H PRN Administration Pain, Mild (Pain Scale 1-3) Albuterol Sulfate 2.5 mg 07/29/20 13:39 Albuterol Sulfate (0.083%) 2.5 Mg/3 Ml Vial.Neb INHALE Q6H PRN Shortness Of Breath Or Wheezing Albuterol Sulfate 2 puff 07/29/20 13:39 Albuterol Sulfate 90 Mcg 8 Gm Inhaler INHALE QID PRN shortness of breath or wheezing Albuterol/Ipratropium 3 ml 07/29/20 03:03 07/29/20 04:42 Albuterol/Iprat 2.5/0.5mg 3 Ml Ampul.Neb INHALE 3 ml RQ4H PRN Administration Shortness of Breath/Wheezing Albuterol/Ipratropium 3 ml 07/29/20 08:00 07/29/20 20:09 Albuterol/Iprat 2.5/0.5mg 3 Ml Ampul.Neb INHALE 3 ml RQ6H WHILE AWAKE MELANIE Administration Aspirin 81 mg 07/29/20 14:30 07/29/20 14:26 Aspirin 81 Mg Tab.Chew PO 81 mg DAILY MELANIE Administration Atenolol 25 mg 07/29/20 13:45 07/29/20 14:26 Atenolol 25 Mg Tablet PO 25 mg DAILY MELANIE Administration Protocol Atorvastatin Calcium 40 mg 07/29/20 21:00 07/29/20 20:02 Atorvastatin Calcium 40 Mg Tablet PO 40 mg BEDTIME MELANIE Administration Docusate Sodium 100 mg 07/29/20 13:39 Docusate Sodium 100 Mg Capsule PO DAILY PRN Constipation Enoxaparin Sodium 40 mg 07/29/20 03:00 07/30/20 03:31 Enoxaparin Sodium 40 Mg/0.4 Ml Syringe SUBCUT 40 mg Q24H MELANIE Administration Enoxaparin Sodium 55 mg 07/30/20 08:15 Enoxaparin Sodium 60 Mg/0.6 Ml Syringe 1 mg/kg (55 mg) SUBCUT Q12H MELANIE Fluoxetine HCl 20 mg 07/29/20 13:45 07/29/20 14:47 Fluoxetine Hcl 20 Mg Capsule PO Not Given DAILY MELANIE Fluticasone Propionate 1 spray 07/29/20 13:39 Fluticasone Propionate Nasal 16 Gm [place] NOSTRIL-B BID PRN allergy symptoms Levofloxacin 250 mg 07/30/20 06:00 07/30/20 05:14 Levofloxacin 250 Mg Tablet PO 250 mg Q24H MELANIE Administration Lorazepam 1 mg 07/29/20 13:39 07/30/20 05:13 Lorazepam 1 Mg Tablet PO 1 mg BID PRN Administration anxiety Methylprednisolone Sodium Succinate 40 mg 07/29/20 20:00 07/30/20 03:31 Methylprednisolone Sod Succ 40 Mg/Ml Vial IVPUSH 40 mg Q8H MELANIE Administration Nicotine 14 mg 07/29/20 10:45 07/29/20 11:05 Nicotine 14 Mg Patch.Td24 TRANSDERMA 14 mg DAILY [facility] Administration Nitroglycerin 0.4 mg 07/29/20 03:00 Nitroglycerin 0.4 Mg Tab.Subl SUBLINGUAL Q5M PRN Chest Pain Non-Formulary Medication 1 inhalation 07/30/20 09:00 Umeclidinium [Incruse Ellipta] PO DAILY [facility] Oxycodone HCl 5 mg 07/29/20 10:35 07/29/20 20:04 Oxycodone Hcl Immed Release 5 Mg Tablet PO 5 mg Q6H PRN Administration Pain, Severe (Pain Scale 7-10) Pharmacy Consult 1 each 07/29/20 07:18 Consult Rx Other Drug Dosing MISCELLANE DAILY PRN Consult order Pharmacy Consult 1 each 07/29/20 10:41 Consult Rx Perform Med Rec MISCELLANE ONCE PRN Consult order Polyethylene Glycol 17 gm 07/29/20 13:39 Polyethylene Glycol 3350 17 Gm Powd.Pack PO DAILY PRN Constipation Sodium Chloride 3 ml 07/29/20 08:00 07/30/20 00:06 0.9 % Sodium Chloride Flush 3 Ml Syringe IVFLUSH 3 ml QSHIFT MELANIE Administration Labs CBC & Chem 7: 07/29/20 04:35 07/29/20 04:35 Microbiology Microbiology Results: Microbiology 07/28/20 23:38 Blood - Venous Blood Culture - Preliminary No growth after 24 hours. 07/28/20 23:39 Blood - Venous Blood Culture - Preliminary No growth after 24 hours. Assessment and Plan (1) COPD exacerbation: Status: Acute Assessment and Plan: 80-year-old female with a past medical history of anxiety, depression, insomnia, CHF, COPD, CKD, hypertension, degenerative spine disease presented to the hospital with a chief complaint of shortness of breath and found to have elevate troponin NSTEMI possible type 2 from COPD exacerbation. Repeat trop and ECG today, start anticoagulation with Lovenox, ASA, statin, BB. Cardiology to review echo and further guidance from them COPD exacerbation and acute bronchitis--clinically seem better continue IV solumedrol, Bronchdilators, Oxygen and Levaquin for presumed bronchitis, cough meds PRN. Pulmonoary following, smoking cessationdiscussed again history of CHF presently euvolemic HTN--continue Atenolol
[2020-07-30 08:32] LABS: Hematocrit 36.9 % (37-47); Mean Corpuscular HGB Conc 32.5 g/dl (31.0-35.0); Mean Corpuscular Hemoglobin 34.1 pg (27.0-33.0); Mean Corpuscular Volume 104.8 fL (80-98); Mean Platelet Volume 9.3 fL (9.4-12.3); Platelet Count 274 X10*3/uL (160-400); Red Blood Count 3.52 X10*6/uL (4.20-5.50); Red Cell Distribution Width 14.3 % (11.0-16.0); White Blood Count 9.3 X10*3/uL (4.8-10.8)
[2020-07-30] MEDS: Enoxaparin Sodium 60 MG/0.6 ML SYRINGE 50 MG SUBCUT ×2 (08:50→20:42)
[2020-07-30] MEDS: FLUoxetine HCl 20 MG CAPSULE PO (08:50)
[2020-07-30] MEDS: atenoloL 25 MG TABLET PO (08:50)
[2020-07-30] MEDS: Nicotine 14 MG PATCH.TD24 TRANSDERMA (08:50)
[2020-07-30] MEDS: Aspirin 81 MG TAB.CHEW PO (08:50)
[2020-07-30] MEDS: oxyCODONE HCl Immed Release 5 MG TABLET PO (08:50)
[2020-07-30] MEDS: Albuterol/Iprat 2.5/0.5MG 3 ML AMPUL.NEB INHALE ×3 (08:51→19:58)
[2020-07-30 09:09] LABS: Troponin-I High Sensitivity 342.5 ng/L (<3.5-17.0)
--- NOTE | 2020-07-30 11:30 | P.PNCA_ITS ---
Subjective Subjective Date of Service: 07/30/20 <MARRY Ramirez - Last Filed: 07/30/20 11:50> 07/30/20 <Geovanny Sparrow MD - Last Filed: 07/30/20 13:44> Principal diagnosis: Shortness of breath, COPD, Elevated Troponin, Abnormal EKG <MARRY Ramirez - Last Filed: 07/30/20 11:50> Interval history: Cardiology follow up for elevated trop, abn EKG. Seen at 0830. Today she reports breathing is more comfortable that admit. No chest pains or pressure. No palpitations, dizziness, leg swelling. Slept well. <MARRY Ramirez - Last Filed: 07/30/20 11:50> Review of Systems Review of Systems as above <MARRY Ramirez - Last Filed: 07/30/20 11:50> Yes all other systems are reviewed and are negative <MARRY Ramirez - Last Filed: 07/30/20 11:50> Physical Exam Vital Signs: Last Vital Signs Temp 98 F 07/30/20 11:06 Pulse 83 07/30/20 11:06 Resp 20 07/30/20 11:06 BP 131/58 L 07/30/20 11:06 Pulse Ox 98 07/30/20 11:06 Oxygen Flow Rate 2 07/28/20 22:25 Body Mass Index 18.8 <MARRY Ramirez - Last Filed: 07/30/20 11:50> Const General: cooperative, no acute distress, alert and awake <MARRY Ramirez - Last Filed: 07/30/20 11:50> Orientation/consciousness: patient oriented x3 <MARRY Ramirez - Last Filed: 07/30/20 11:50> Neck Neck: Yes normal visual inspection and Yes no JVD <MARRY Ramirez Last Filed: 07/30/20 11:50> Resp Other: Breathing appears mildly short however she states it is her normal. Lung sounds diminished throughtout <MARRY Ramirez - Last Filed: 07/30/20 11:50> Effort & Inspection: able to speak in complete sentences <Bess DhillonEMILIANOC - Last Filed: 07/30/20 11:50> Auscultation: clear to auscultation bilaterally, no crackles, no rales, no rhonchi and no wheezes <Bess DhillonEMILIANOC - Last Filed: 07/30/20 11:50> Cardio Palpation: normal PMI <Bess DhillonRONNClaryC - Last Filed: 07/30/20 11:50> Rate: regular rate <Bess DhillonRONNClaryC - Last Filed: 07/30/20 11:50> Rhythm: regular rhythm <Bess DhillonRONN-C - Last Filed: 07/30/20 11:50> Heart sounds: S1 normal heart sound present and S2 normal heart sound present <Bess DhillonRONN-C - Last Filed: 07/30/20 11:50> Peripheral pulses: Peripheral pulses 2+ throughout <Bess DhillonRONN-C - Last Filed: 07/30/20 11:50> GI Inspection: Yes normal to inspection <Bess DhillonRONN-C - Last Filed: 07/30/20 11:50> Neuro General: patient oriented x3 <Bess DhillonRONNClaryC - Last Filed: 07/30/20 11:50> Extrem General: Yes normal to inspection and No edema <Bess DhillonRONN-C - Last Filed: 07/30/20 11:50> Results Labs and Meds Result diagrams: : 07/30/20 05:00 07/29/20 04:35 <Bess DhillonRONN-C - Last Filed: 07/30/20 11:50> Lab results: Laboratory Results - last 24 hr 07/29/20 07/29/20 07/30/20 11:18 11:25 05:00 WBC RBC Hgb Hct MCV MCH MCHC RDW Plt Count MPV Absolute Nucleated RBC Nucleated RBC % (auto) PT 11.9 INR 1.0 Troponin I High Sens 480.8 H* D Urine Color YELLOW Urine Appearance CLEAR Urine pH 6.0 Ur Specific [place] 1.020 Urine Protein TRACE Urine Glucose (UA) NEG Urine Ketones NEG Urine Blood TRACE Urine Nitrite NEG Ur Leukocyte Esterase 2+ H Urine RBC 1-4 Urine WBC 15-29 H Ur Squamous Epith Cells 1+ Urine Bacteria 1+ 07/30/20 07/30/20 05:00 05:00 WBC 9.3 RBC 3.52 L Hgb 12.0 Hct 36.9 L MCV 104.8 H MCH 34.1 H MCHC 32.5 RDW 14.3 Plt Count 274 MPV 9.3 L Absolute Nucleated RBC 0.000 Nucleated RBC % (auto) 0.0 PT INR Troponin I High Sens 342.5 H* Urine Color Urine Appearance Urine pH Ur Specific [place] Urine Protein Urine Glucose (UA) Urine Ketones Urine Blood Urine Nitrite Ur Leukocyte Esterase Urine RBC Urine WBC Ur Squamous Epith Cells Urine Bacteria <MARRY Ramirez - Last Filed: 07/30/20 11:50> Imaging Radiologist's impression: Impressions Chest CTA 07/29/20 01:52 IMPRESSION: No evidence of PE. No evidence aortic dissection or aneurysm. Right lower lobe chronic atelectasis or consolidation, new since 2019. Left upper lobe infiltrative mass has resolved. Diffuse emphysema mild bronchial wall thickening and intrabronchiolar debris in both lower lobes. Likely right hepatic cyst VTE: negative <MARRY Ramirez - Last Filed: 07/30/20 11:50> Progress Note: A&P Assessment and plan (1) Elevated troponin: Status: Acute <MARRY Ramirez - Last Filed: 07/30/20 11:50> Assessment and Plan: Admit with increased sob, hypoxia - COPD. Troponin normally initially. Ilene to 480 yesterday and down to 342 this am. No chest pains or pressure. EKG on admit with Sinus tachycardia, no ischemia. poor R wave progression, with anterolateral q waves. Different from prior. She denied any cardiac history. Has cardiac risk factors of age, smoking, CKD, family hx. Troponin elevation initially felt to be related to myocardial injury in setting of hypoxia and Less likely to be acute plaque rupture. Echo done this morning with reported findings of Wall motion abnormalities in multi territories - full read not available at time of this note. EKG this am with T wave inversions inferorly and V3-V6. It is now felt that she may have Takotsubo Cardiomyopathy however ACS can't be ruled out yet. She has been started on Therapeutic Lovenox, continue for 48hrs and then can stop. Continue Aspirin, Atorvastatin. Will change her BB from Atenolol to Carvedilol 3.125mg bid. Will start on Lisinopril 5 mg daily. Will obtain rest portion of Pharm nuclear stress test today. Will plan for stress portion of the test on Wednesday 08/02 - no caffiene use 24hr prior to that part of test. Obtain EKG if she does report chest discomfort. Ongoing mgt for her COPD exacerbation. We will follow along <MARRY Ramirez - Last Filed: 07/30/20 11:50> Patient seen and examined. Case discussed with Bess Dhillon. Elevated troponin, now consistent with myocardial injury. Echocardiogram shows LV systolic dysfunction with regional wall motion abnormality, most consistent with stress-induced cardiomyopathy. LAD territory ischemia cannot be entirely ruled out. For now would treat her as an active acute coronary syndrome. Agree with Lovenox. Continue aspirin. Will switch atenolol to carvedilol 3.125 mg b.i.d.. Watch for bronchospasm. Will also add lisinopril 5 mg daily for better blood pressure control as well as systolic dysfunction. Sta rt statin therapy. Will require ischemic workup. Rest perfusion study to be done today and stress on Sunday, weighs or dilated to evaluate for myocardial ischemia. If negative, would suggest most likely stress-induced cardiomyopathy. Continue aggressive management of underlying pulmonary issues. Complete smoking cessation was advised. Will follow with the patient. <Geovanny Sparrow MD - Last Filed: 07/30/20 13:44> (2) Abnormal EKG: Status: Acute <MARRY Ramirez - Last Filed: 07/30/20 11:50> Assessment and Plan: as above <MARRY Ramirez - Last Filed: 07/30/20 11:50> (3) Shortness of breath: Status: Acute <MARRY Ramirez - Last Filed: 07/30/20 11:50> Assessment and Plan: Sob and hypoxia appears to be from COPD exacerbation. CTA was neg for PE. Full echo report pending. Ongoing mgt as directed by hospitalist. Discussed smoking cessation and she does states she is agreeable. Consider start of chantix. continue nicotine patch. <MARRY Ramirez - Last Filed: 07/30/20 11:50> (4) Benign essential hypertension: Status: Acute <MARRY Ramirez - Last Filed: 07/30/20 11:50> Assessment and Plan: BP not optimally controlled. Will be adding Lisinopril and Carvedilol as above <MARRY Ramirez - Last Filed: 07/30/20 11:50> Fall Risk Details Current Medications: Current Medications Generic Name Dose Route Start Last Admin Trade Name Freq PRN Reason Stop Dose Admin Acetaminophen 650 mg 07/29/20 03:00 07/29/20 08:28 Acetaminophen 325 Mg Tablet PO 650 mg Q6H PRN Administration Pain, Mild (Pain Scale 1-3) Albuterol Sulfate 2.5 mg 07/29/20 13:39 Albuterol Sulfate (0.083%) 2.5 Mg/3 Ml Vial.Neb INHALE Q6H PRN Shortness Of Breath Or Wheezing Albuterol Sulfate 2 puff 07/29/20 13:39 Albuterol Sulfate 90 Mcg 8 Gm Inhaler INHALE QID PRN shortness of breath or wheezing Albuterol/Ipratropium 3 ml 07/29/20 03:03 07/29/20 04:42 Albuterol/Iprat 2.5/0.5mg 3 Ml Ampul.Neb INHALE 3 ml RQ4H PRN Administration Shortness of Breath/Wheezing Albuterol/Ipratropium 3 ml 07/29/20 08:00 07/30/20 08:51 Albuterol/Iprat 2.5/0.5mg 3 Ml Ampul.Neb INHALE 3 ml RQ6H WHILE AWAKE MELANIE Administration Aspirin 81 mg 07/29/20 14:30 07/30/20 08:50 Aspirin 81 Mg Tab.Chew PO 81 mg DAILY MELANIE Administration Atorvastatin Calcium 40 mg 07/29/20 21:00 07/29/20 20:02 Atorvastatin Calcium 40 Mg Tablet PO 40 mg BEDTIME MELANIE Administration Carvedilol 3.125 mg 07/30/20 21:00 Carvedilol 3.125 Mg Tablet PO BID MELANIE Protocol Docusate Sodium 100 mg 07/29/20 13:39 Docusate Sodium 100 Mg Capsule PO DAILY PRN Constipation Enoxaparin Sodium 40 mg 07/29/20 03:00 07/30/20 03:31 Enoxaparin Sodium 40 Mg/0.4 Ml Syringe SUBCUT 40 mg Q24H MELANIE Administration Enoxaparin Sodium 50 mg 07/30/20 09:00 07/30/20 08:50 Enoxaparin Sodium 60 Mg/0.6 Ml Syringe SUBCUT 50 mg Q12H MELANIE Administration Fluoxetine HCl 20 mg 07/29/20 13:45 07/30/20 08:50 Fluoxetine Hcl 20 Mg Capsule PO 20 mg DAILY MELANIE Administration Fluticasone Propionate 1 spray 07/29/20 13:39 Fluticasone Propionate Nasal 16 Gm [place] NOSTRIL-B BID PRN allergy symptoms Levofloxacin 250 mg 07/30/20 06:00 07/30/20 05:14 Levofloxacin 250 Mg Tablet PO 250 mg Q24H MELANIE Administration Lisinopril 5 mg 07/30/20 10:00 Lisinopril 5 Mg Tablet PO DAILY [facility] Protocol Lorazepam 1 mg 07/29/20 13:39 07/30/20 05:13 Lorazepam 1 Mg Tablet PO 1 mg BID PRN Administration anxiety Methylprednisolone Sodium Succinate 40 mg 07/29/20 20:00 07/30/20 03:31 Methylprednisolone Sod Succ 40 Mg/Ml Vial IVPUSH 40 mg Q8H [facility] Administration Nicotine 14 mg 07/29/20 10:45 07/30/20 08:50 Nicotine 14 Mg Patch.Td24 TRANSDERMA 14 mg DAILY MELANIE Administration Nitroglycerin 0.4 mg 07/29/20 03:00 Nitroglycerin 0.4 Mg Tab.Subl SUBLINGUAL Q5M PRN Chest Pain Oxycodone HCl 5 mg 07/29/20 10:35 07/30/20 08:50 Oxycodone Hcl Immed Release 5 Mg Tablet PO 5 mg Q6H PRN Administration Pain, Severe (Pain Scale 7-10) Pharmacy Consult 1 each 07/29/20 07:18 Consult Rx Other Drug Dosing MISCELLANE DAILY PRN Consult order Pharmacy Consult 1 each 07/29/20 10:41 Consult Rx Perform Med Rec MISCELLANE ONCE PRN Consult order Polyethylene Glycol 17 gm 07/29/20 13:39 Polyethylene Glycol 3350 17 Gm Powd.Pack PO DAILY PRN Constipation Sodium Chloride 3 ml 07/29/20 08:00 07/30/20 08:53 0.9 % Sodium Chloride Flush 3 Ml Syringe IVFLUSH 3 ml QSHIFT MELANIE Administration Tiotropium [place] 1 puff 07/30/20 09:00 Tiotropium [place] 18 Mcg Cap.W.Dev INHALE RDAILY [facility] <MARRY Ramirez - Last Filed: 07/30/20 11:50> Time Spent With Patient Time: Total time spent is greater than 50% in coordination of care (as documented) at patient's floor/unit and/or counseling patient: 24 <MARRY Ramirez - Last Filed: 07/30/20 11:50> Time with patient: 15 - 24 minutes <MARRY Ramirez - Last Filed: 07/30/20 11:50> Procedures Date of Service Date of Service: 07/30/20 <MARRY Ramirez - Last Filed: 07/30/20 11:50>
[2020-07-30] MEDS: lisinopriL 5 MG TABLET PO (12:06)
--- NOTE | 2020-07-30 15:50 | MHC.CM.PN ---
NURSE WARP PREPARER NOTE ELECTRONIC MEDICAL RECORD REVIEWED ALONG WITH CASE DISCUSSED WITH STAFF NURSE , PER DOCUMENTATION PATIENTS TROPONT LEVEL SIGNIFICANTLY ELEVATED AND FOLLOW UP THIS MORNING DID DECREASE, CERTIFIED CAREGIVER CAME TO SEE PATIENT ORDERED MORE TEST EKG, WILL HAVE CAROTID STUDY AND FOLLOW UP STRESS TEST ON SUNDAY CARDIAC MEDICATION CHANGES MADE , TELEPHONE CALL TO PATIENTS DAUGHTER ROD,SPOKE WITH HER SHE WILL BE COMING IN LATER TODAY , I ENCOURAGED HER TO TALK WITH BEDSIDE NURSE AND HOSPITALIST TO GET A MEDICAL UPDATE
[2020-07-30 18:05] LABS: Hematocrit 37.1 % (37-47); Mean Corpuscular HGB Conc 32.3 g/dl (31.0-35.0); Mean Corpuscular Hemoglobin 33.9 pg (27.0-33.0); Mean Corpuscular Volume 104.8 fL (80-98); Mean Platelet Volume 8.8 fL (9.4-12.3); Platelet Count 289 X10*3/uL (160-400); Red Blood Count 3.54 X10*6/uL (4.20-5.50); Red Cell Distribution Width 14.2 % (11.0-16.0); White Blood Count 10.5 X10*3/uL (4.8-10.8)
[2020-07-30] MEDS: Atorvastatin Calcium 40 MG TABLET PO (20:42)
[2020-07-30] MEDS: carvediloL 3.125 MG TABLET PO (20:42)
[2020-07-31] VITALS (12 sets, daily range): BP systolic 141–164; BP diastolic 59–77; PULSE 78–90; RESP 16–20; TEMP 35.9–37.1; O2SAT 94–99
[2020-07-31] MEDS: methylPREDNISolone Sod Succ 40 MG/ML VIAL IVPUSH ×3 (03:43→21:18)
[2020-07-31] MEDS: levoFLOXacin 250 MG TABLET PO (06:01)
[2020-07-31] MEDS: LORazepam 1 MG TABLET PO ×2 (06:33→21:19)
[2020-07-31] MEDS: Albuterol/Iprat 2.5/0.5MG 3 ML AMPUL.NEB INHALE ×3 (06:42→20:24)
[2020-07-31] MEDS: FLUoxetine HCl 20 MG CAPSULE PO (08:54)
[2020-07-31] MEDS: lisinopriL 5 MG TABLET PO (08:55)
[2020-07-31] MEDS: Nicotine 14 MG PATCH.TD24 TRANSDERMA (08:55)
[2020-07-31] MEDS: Enoxaparin Sodium 60 MG/0.6 ML SYRINGE 50 MG SUBCUT ×2 (08:55→21:20)
[2020-07-31] MEDS: Aspirin 81 MG TAB.CHEW PO (08:55)
[2020-07-31] MEDS: carvediloL 3.125 MG TABLET PO ×2 (08:55→21:17)
[2020-07-31] MEDS: 0.9 % Sodium Chloride Flush 3 ML SYRINGE IVFLUSH ×3 (08:56→21:28)
[2020-07-31] MEDS: Acetaminophen 325 MG TABLET 650 MG PO ×2 (09:58→16:08)
[2020-07-31] MEDS: Fluticasone Propionate Nasal 16 GM SPRAY 1 SPRAY NOSTRIL-B (10:01)
--- NOTE | 2020-07-31 11:27 | P.PNPL_ITS ---
Subjective Subjective Date of Service: 07/31/20 Principal diagnosis: Shortness of breath, COPD, Elevated Troponin, Abnormal EKG Interval history: THIS 80 YEARS OLD FEMALE IS GETTING BETTER, SHE IS NOT CRAVING FOR CIGARETTES AT THIS TIME. DOES NOT SHOW ANY RESPIRATORY DISTRESS. STILL ON O2 2 L/MINUTE BUT COULD BE WEANED OFF. SHE IS HAVING FURTHER EVALUATION FROM CARDIOLOGY BECAUSE OF ELEVATED TROPONIN- FOR. BREATHING ALANIS I THING SHE HAS IMPROVED TO ALMOST HER BASELINE. Objective Data Labs CBC & Chem 7: 07/30/20 17:38 07/29/20 04:35 Labs: Laboratory Results - last 24 hr 07/30/20 17:38 WBC 10.5 RBC 3.54 L Hgb 12.0 Hct 37.1 MCV 104.8 H MCH 33.9 H MCHC 32.3 RDW 14.2 Plt Count 289 MPV 8.8 L Absolute Nucleated RBC 0.000 Nucleated RBC % (auto) 0.0 Microbiology Microbiology Results: Microbiology 07/28/20 23:38 Blood - Venous Blood Culture - Preliminary No growth after 48 hours. 07/28/20 23:39 Blood - Venous Blood Culture - Preliminary No growth after 48 hours. 07/29/20 00:00 Urine clean catch - Clean Catch Midstream Urine Culture - Final No growth. Review of Systems Review of Systems Yes all other systems are reviewed and are negative Physical Exam Vital Signs: Vital Signs: Last Vital Signs Temp 97.4 F 07/31/20 07:43 Pulse 89 07/31/20 08:55 Resp 17 07/31/20 07:43 BP 160/76 H 07/31/20 08:55 Pulse Ox 99 07/31/20 07:43 Oxygen Flow Rate 2 07/28/20 22:25 Body Mass Index 18.8 Const: General: comfortable, no acute distress, alert and awake Orientation/consciousness: patient oriented x3 HENMT: Head: Yes normal to inspection General nose exam: No nasal polyps present and No nasal discharge present Face and sinus: Yes sinuses nontender Mouth: oropharynx normal Throat: Yes posterior oropharynx normal Eyes: General: appearance normal, both eyes and all related structures Neck: Neck: Yes normal visual inspection, Yes no lymphadenopathy, Yes trachea midline and Yes no JVD Thyroid: Thyroid normal Chest: Chest palpation & inspection: normal inspection of the chest, normal palpation of entire chest wall and no tenderness Resp: Other: BREATH SOUNDS ARE DISTANT, WITH PROLONGED EXPIRATORY PHASE. NO WHEEZES OR CREPITATIONS ARE HEARD. Cardio: Palpation: normal PMI Rate: regular rate Rhythm: regular rhythm Heart sounds: no gallops and no murmurs Peripheral pulses: Peripheral pulses 2+ throughout GI: Palpation (GI): Soft to palpation, nontender, No hepatosplenomegaly present and no masses Auscultation: normal bowel sounds Back/Spine/Pelvis: Thoracic/Lumbar Spine: thoracic and lumbar spine normal to inspection Skin: General skin exam: no rashes or lesions noted Neuro: General: patient oriented x3 and no focal motor deficits Cranial nerves: Yes CN's II-XII intact bilaterally Extrem: General: Yes normal to inspection, Yes no clubbing, cyanosis or edema and Yes no calf tenderness Psych: Appearance: grossly normal Speech and movement: Normal speech and movement present Procedures Date of Service Date of Service: 07/31/20 Assessment and Plan Assessment and plan (1) COPD exacerbation: Problem details: I THINK SHE HAS IMPROVED FROM HER ACUTE EXACERBATION, MAY DC IV SOLU-MEDROL AND KEEP HER ON PREDNISONE 40 MG A DAY FOR 5 DAYS. AT HOME SHE WILL START USING SYMBICORT 160-4.52 PUFFS B.I.D. INCRUSE Ellipta ONE INH DAILY . AND ALBUTEROL 2 PUFFS Q 4-6 HOURS P.R.N.. COMPLETE COURSE OF LEVAQUIN FOR 5 DAYS THEN IT CAN BE STOPPED. SHOULD HAVE EVALUATION FOR HOME OXYGEN BEFORE DISCHARGE. Status: Acute (2) Smoker: Problem details: LONG-TIME SMOKER, SHE ENJOYS SMOKING. SHE SHOULD BE URGE TO REFRAIN FROM SMOKING EVEN AFTER DISCHARGE. Status: Acute Time Spent With Patient Time: Total time spent is greater than 50% in coordination of care (as documented) at patient's floor/unit and/or counseling patient: Time with patient: 15 - 24 minutes
--- NOTE | 2020-07-31 11:53 | P.PNIM_ITS ---
Subjective Subjective Date of Service: 07/31/20 Interval History: Seen in follow up for acute respiratoyr failure, COPD exacerbation and now elevated troponin I, she feels better with no chest pain this morning and no chest pain. Her breathing is better today, she has no chest pain Review of Systems Gen: no fever Resp: + sob, no cough CV: no chest, no BOWERS, no leg edema GI: No n/v, no abd pain Neuro: No confusion Physical Exam Vital Signs: Vital Signs: Last Vital Signs Temp 97.4 F 07/31/20 07:43 Pulse 89 07/31/20 08:55 Resp 17 07/31/20 07:43 BP 160/76 H 07/31/20 08:55 Pulse Ox 99 07/31/20 07:43 Oxygen Flow Rate 2 07/28/20 22:25 Body Mass Index 18.8 Const: Other: General: AO X 3, no acute distress Resp: CTA bilateral CVS: S1,S2,RRR GI: +BS, NT, no distention Skin: No rash Neuro: motor grossly intact Psych: appropriate affect Objective Data Current Medications Generic Name Dose Route Start Last Admin Trade Name Freq PRN Reason Stop Dose Admin Acetaminophen 650 mg 07/29/20 03:00 07/31/20 09:58 Acetaminophen 325 Mg Tablet PO 650 mg Q6H PRN Administration Pain, Mild (Pain Scale 1-3) Albuterol Sulfate 2.5 mg 07/29/20 13:39 Albuterol Sulfate (0.083%) 2.5 Mg/3 Ml Vial.Neb INHALE Q6H PRN Shortness Of Breath Or Wheezing Albuterol Sulfate 2 puff 07/29/20 13:39 Albuterol Sulfate 90 Mcg 8 Gm Inhaler INHALE QID PRN shortness of breath or wheezing Albuterol/Ipratropium 3 ml 07/29/20 03:03 07/29/20 04:42 Albuterol/Iprat 2.5/0.5mg 3 Ml Ampul.Neb INHALE 3 ml RQ4H PRN Administration Shortness of Breath/Wheezing Albuterol/Ipratropium 3 ml 07/29/20 08:00 07/31/20 06:42 Albuterol/Iprat 2.5/0.5mg 3 Ml Ampul.Neb INHALE 3 ml RQ6H WHILE AWAKE MELANIE Administration Aspirin 81 mg 07/29/20 14:30 07/31/20 08:55 Aspirin 81 Mg Tab.Chew PO 81 mg DAILY MELANIE Administration Atorvastatin Calcium 40 mg 07/29/20 21:00 07/30/20 20:42 Atorvastatin Calcium 40 Mg Tablet PO 40 mg BEDTIME MELANIE Administration Carvedilol 3.125 mg 07/30/20 21:00 07/31/20 08:55 Carvedilol 3.125 Mg Tablet PO 3.125 mg BID MELANIE Administration Protocol Docusate Sodium 100 mg 07/29/20 13:39 Docusate Sodium 100 Mg Capsule PO DAILY PRN Constipation Enoxaparin Sodium 50 mg 07/30/20 09:00 07/31/20 08:55 Enoxaparin Sodium 60 Mg/0.6 Ml Syringe SUBCUT 50 mg Q12H MELANIE Administration Fluoxetine HCl 20 mg 07/29/20 13:45 07/31/20 08:54 Fluoxetine Hcl 20 Mg Capsule PO 20 mg DAILY MELANIE Administration Fluticasone Propionate 1 spray 07/29/20 13:39 07/31/20 10:01 Fluticasone Propionate Nasal 16 Gm [place] NOSTRIL-B 1 spray BID PRN Administration allergy symptoms Levofloxacin 250 mg 07/30/20 06:00 07/31/20 06:01 Levofloxacin 250 Mg Tablet PO 250 mg Q24H MELANIE Administration Lisinopril 5 mg 07/30/20 10:00 07/31/20 08:55 Lisinopril 5 Mg Tablet PO 5 mg DAILY MELANIE Administration Protocol Lorazepam 1 mg 07/29/20 13:39 07/31/20 06:33 Lorazepam 1 Mg Tablet PO 1 mg BID PRN Administration anxiety Methylprednisolone Sodium Succinate 40 mg 07/29/20 20:00 07/31/20 03:43 Methylprednisolone Sod Succ 40 Mg/Ml Vial IVPUSH 40 mg Q8H MELANIE Administration Nicotine 14 mg 07/29/20 10:45 07/31/20 08:55 Nicotine 14 Mg Patch.Td24 TRANSDERMA 14 mg DAILY MELANIE Administration Nitroglycerin 0.4 mg 07/29/20 03:00 Nitroglycerin 0.4 Mg Tab.Subl SUBLINGUAL Q5M PRN Chest Pain Oxycodone HCl 5 mg 07/29/20 10:35 07/30/20 08:50 Oxycodone Hcl Immed Release 5 Mg Tablet PO 5 mg Q6H PRN Administration Pain, Severe (Pain Scale 7-10) Pharmacy Consult 1 each 07/29/20 07:18 Consult Rx Other Drug Dosing MISCELLANE DAILY PRN Consult order Pharmacy Consult 1 each 07/29/20 10:41 Consult Rx Perform Med Rec MISCELLANE ONCE PRN Consult order Polyethylene Glycol 17 gm 07/29/20 13:39 Polyethylene Glycol 3350 17 Gm Powd.Pack PO DAILY PRN Constipation Sodium Chloride 3 ml 07/29/20 08:00 07/31/20 08:56 0.9 % Sodium Chloride Flush 3 Ml Syringe IVFLUSH 3 ml QSHIFT MELANIE Administration Tiotropium [place] 1 puff 07/30/20 09:00 07/31/20 08:35 Tiotropium [place] 18 Mcg Cap.W.Dev INHALE 1 puff RDAILY MELANIE Administration Labs CBC & Chem 7: 07/30/20 17:38 07/29/20 04:35 Microbiology Microbiology Results: Microbiology 07/28/20 23:38 Blood - Venous Blood Culture - Preliminary No growth after 48 hours. 07/28/20 23:39 Blood - Venous Blood Culture - Preliminary No growth after 48 hours. 07/29/20 00:00 Urine clean catch - Clean Catch Midstream Urine Culture - Final No growth. Assessment and Plan (1) COPD exacerbation: Status: Acute (2) Smoker: Status: Acute Assessment and Plan: 80-year-old female with a past medical history of anxiety, depression, insomnia, CHF, COPD, CKD, hypertension, degenerative spine disease presented to the hospital with a chief complaint of shortness of breath and found to have elevate troponin NSTEMI possible type 2 from COPD exacerbation. Repeat trop and ECG today, start anticoagulation with Lovenox, ASA, statin, BB. Echo shows Moderate to severe LV systolic dysfunction with mid and apical segment hypokinesis, finding overall suggestive of stress-induced cardiomyopathy, CAD cannot be entirely ruled out, ejection fraction is 30-35% COPD exacerbation and acute bronchitis--improved continue IV solumedrol to oral prednisone,, Bronchdilators, Oxygen and Levaquin for presumed bronchitis, cough meds PRN. Pulmonoary following, smoking cessationdiscussed again history of CHF presently euvolemic HTN--Atenolol changed to Coreg, Lisinopril started d/t cardiomyopathy I disucssed plan of care with daughter at bedside
--- NOTE | 2020-07-31 15:37 | P.PNCA_ITS ---
Subjective Subjective Date of Service: 07/31/20 Principal diagnosis: Shortness of breath, COPD, Elevated Troponin, Abnormal EKG Interval history: Patient continues to have shortness of breath. No chest discomfort. Says feels uneasy and warm. Review of Systems Constitutional: Denies chills, Reports fatigue, Denies fever(s) and Reports lethargy Cardiovascular: Denies chest pain and Reports dyspnea on exertion Respiratory: Reports no additional respiratory complaints and Reports dyspnea on exertion Gastrointestinal: Reports no additional gastrointestinal complaints Genitourinary: Reports no additional female genitourinary complaints Musculoskeletal: Reports no additional musculoskeletal complaints Reports system reviewed and no additional complaints, except as documented Psychiatric: Reports no additional psychiatric complaints Endocrine: Reports fatigue Physical Exam Vital Signs: Last Vital Signs Temp 98.7 F 07/31/20 12:00 Pulse 90 07/31/20 12:00 Resp 16 07/31/20 12:00 BP 144/65 H 07/31/20 12:00 Pulse Ox 95 07/31/20 12:00 Oxygen Flow Rate 2 07/28/20 22:25 Body Mass Index 18.8 Const General: cooperative, no acute distress, alert and awake Nutritional Appearance: underweight Orientation/consciousness: patient oriented x3 Neck Neck: Yes trachea midline, Yes supple and Yes no JVD Resp Effort & Inspection: normal respiratory effort Auscultation: no rales, no wheezes and diminished lung sounds Cardio Jugular venous distension: no JVD Palpation: normal PMI Rate: regular rate Rhythm: regular rhythm Heart sounds: S1 normal heart sound present and S2 normal heart sound present GI Auscultation: normal bowel sounds Skin General skin exam: no rashes or lesions noted Neuro General: patient oriented x3 and no focal motor deficits Extrem General: Yes no clubbing, cyanosis or edema Results Labs and Meds Result diagrams: 07/30/20 17:38 07/29/20 04:35 Lab results: Laboratory Results - last 24 hr 07/30/20 17:38 WBC 10.5 RBC 3.54 L Hgb 12.0 Hct 37.1 MCV 104.8 H MCH 33.9 H MCHC 32.3 RDW 14.2 Plt Count 289 MPV 8.8 L Absolute Nucleated RBC 0.000 Nucleated RBC % (auto) 0.0 Progress Note: A&P Assessment and plan (1) Elevated troponin: Status: Acute Assessment and Plan: Elevated troponin with abnormal echocardiogram consistent 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 Myocardial ischemia and LAD territory ischemia cannot be ruled out. Further treatment based on the findings of ischemic workup. Underwent resting perfusion study on Sunday. Vaso dilator perfusion imaging on Sunday and will compare the data. 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 Continue therapy with. Maximize lisinopril therapy. Continue to provide supportive care for her pulmonary condition and treat the same. Continue statin and aspirin therapy. Lovenox for 1 more day. Fall Risk Details Current Medications: Current Medications Generic Name Dose Route Start Last Admin Trade Name Freq PRN Reason Stop Dose Admin Acetaminophen 650 mg 07/29/20 03:00 07/31/20 09:58 Acetaminophen 325 Mg Tablet PO 650 mg Q6H PRN Administration Pain, Mild (Pain Scale 1-3) Albuterol Sulfate 2.5 mg 07/29/20 13:39 Albuterol Sulfate (0.083%) 2.5 Mg/3 Ml Vial.Neb INHALE Q6H PRN Shortness Of Breath Or Wheezing Albuterol Sulfate 2 puff 07/29/20 13:39 Albuterol Sulfate 90 Mcg 8 Gm Inhaler INHALE QID PRN shortness of breath or wheezing Albuterol/Ipratropium 3 ml 07/29/20 03:03 07/29/20 04:42 Albuterol/Iprat 2.5/0.5mg 3 Ml Ampul.Neb INHALE 3 ml RQ4H PRN Administration Shortness of Breath/Wheezing Albuterol/Ipratropium 3 ml 07/29/20 08:00 07/31/20 06:42 Albuterol/Iprat 2.5/0.5mg 3 Ml Ampul.Neb INHALE 3 ml RQ6H WHILE AWAKE MELANIE Administration Aspirin 81 mg 07/29/20 14:30 07/31/20 08:55 Aspirin 81 Mg Tab.Chew PO 81 mg DAILY MELANIE Administration Atorvastatin Calcium 40 mg 07/29/20 21:00 07/30/20 20:42 Atorvastatin Calcium 40 Mg Tablet PO 40 mg BEDTIME MELANIE Administration Carvedilol 3.125 mg 07/30/20 21:00 07/31/20 08:55 Carvedilol 3.125 Mg Tablet PO 3.125 mg BID MELANIE Administration Protocol Docusate Sodium 100 mg 07/29/20 13:39 Docusate Sodium 100 Mg Capsule PO DAILY PRN Constipation Enoxaparin Sodium 50 mg 07/30/20 09:00 07/31/20 08:55 Enoxaparin Sodium 60 Mg/0.6 Ml Syringe SUBCUT 50 mg Q12H MELANIE Administration Fluoxetine HCl 20 mg 07/29/20 13:45 07/31/20 08:54 Fluoxetine Hcl 20 Mg Capsule PO 20 mg DAILY MELANIE Administration Fluticasone Propionate 1 spray 07/29/20 13:39 07/31/20 10:01 Fluticasone Propionate Nasal 16 Gm [place] NOSTRIL-B 1 spray BID PRN Administration allergy symptoms Levofloxacin 250 mg 07/30/20 06:00 07/31/20 06:01 Levofloxacin 250 Mg Tablet PO 250 mg Q24H MELANIE Administration Lisinopril 5 mg 07/30/20 10:00 07/31/20 08:55 Lisinopril 5 Mg Tablet PO 5 mg DAILY MELANIE Administration Protocol Lorazepam 1 mg 07/29/20 13:39 07/31/20 06:33 Lorazepam 1 Mg Tablet PO 1 mg BID PRN Administration anxiety Methylprednisolone Sodium Succinate 40 mg 07/29/20 20:00 07/31/20 12:26 Methylprednisolone Sod Succ 40 Mg/Ml Vial IVPUSH 40 mg Q8H MELANIE Administration Nicotine 14 mg 07/29/20 10:45 07/31/20 08:55 Nicotine 14 Mg Patch.Td24 TRANSDERMA 14 mg DAILY MELANIE Administration Nitroglycerin 0.4 mg 07/29/20 03:00 Nitroglycerin 0.4 Mg Tab.Subl SUBLINGUAL Q5M PRN Chest Pain Oxycodone HCl 5 mg 07/29/20 10:35 07/30/20 08:50 Oxycodone Hcl Immed Release 5 Mg Tablet PO 5 mg Q6H PRN Administration Pain, Severe (Pain Scale 7-10) Pharmacy Consult 1 each 07/29/20 07:18 Consult Rx Other Drug Dosing MISCELLANE DAILY PRN Consult order Pharmacy Consult 1 each 07/29/20 10:41 Consult Rx Perform Med Rec MISCELLANE ONCE PRN Consult order Polyethylene Glycol 17 gm 07/29/20 13:39 Polyethylene Glycol 3350 17 Gm Powd.Pack PO DAILY PRN Constipation Sodium Chloride 3 ml 07/29/20 08:00 07/31/20 15:09 0.9 % Sodium Chloride Flush 3 Ml Syringe IVFLUSH 3 ml QSHIFT MELANIE Administration Tiotropium [place] 1 puff 07/30/20 09:00 07/31/20 08:35 Tiotropium [place] 18 Mcg Cap.W.Dev INHALE 1 puff RDAILY MELANIE Administration Time Spent With Patient Time: Total time spent is greater than 50% in coordination of care (as documented) at patient's floor/unit and/or counseling patient: Time with patient: 15 - 24 minutes Procedures Date of Service Date of Service: 07/31/20
[2020-07-31] MEDS: Atorvastatin Calcium 40 MG TABLET PO (21:17)
[2020-08-01] VITALS (9 sets, daily range): BP systolic 112–168; BP diastolic 63–80; PULSE 78–91; RESP 15–20; TEMP 36–36.2; O2SAT 93–96
[2020-08-01] MEDS: methylPREDNISolone Sod Succ 40 MG/ML VIAL IVPUSH (04:44)
[2020-08-01] MEDS: levoFLOXacin 250 MG TABLET PO (05:13)
[2020-08-01] MEDS: Albuterol Sulfate 90 MCG 8 GM INHALER 2 PUFF INHALE (05:43)
[2020-08-01] MEDS: Acetaminophen 325 MG TABLET 650 MG PO ×3 (07:31→19:42)
[2020-08-01] MEDS: LORazepam 1 MG TABLET PO (07:32)
[2020-08-01] MEDS: 0.9 % Sodium Chloride Flush 3 ML SYRINGE IVFLUSH ×3 (07:32→23:40)
[2020-08-01] MEDS: Albuterol/Iprat 2.5/0.5MG 3 ML AMPUL.NEB INHALE ×3 (08:21→20:18)
[2020-08-01 08:56] LABS: Hemoglobin 11.7 g/dl (12.0-16.0); Mean Corpuscular HGB Conc 32.5 g/dl (31.0-35.0); Mean Corpuscular Hemoglobin 33.8 pg (27.0-33.0); Mean Platelet Volume 8.8 fL (9.4-12.3); Platelet Count 262 X10*3/uL (160-400); Red Blood Count 3.46 X10*6/uL (4.20-5.50); Red Cell Distribution Width 14.2 % (11.0-16.0); White Blood Count 7.9 X10*3/uL (4.8-10.8)
[2020-08-01] MEDS: Nicotine 14 MG PATCH.TD24 TRANSDERMA (09:25)
[2020-08-01 09:26] LABS: Anion Gap 14 (12-20); Blood Urea Nitrogen 45 mg/dL (9-16); Calcium 8.5 mg/dL (8.4-10.2); Carbon Dioxide 25 mmol/L (22-29); Chloride 103 mmol/L (96-108); Creatinine Clr Calc Pharmacy 32.7; Estimated Glomerular Filt Rate 47; Glucose Random 114 mg/dL (60-115); Potassium 4.6 mmol/L (3.3-5.1); Sodium 137 mmol/L (135-145)
[2020-08-01] MEDS: lisinopriL 5 MG TABLET PO (09:26)
[2020-08-01] MEDS: FLUoxetine HCl 20 MG CAPSULE PO (09:26)
[2020-08-01] MEDS: Aspirin 81 MG TAB.CHEW PO (09:26)
[2020-08-01] MEDS: carvediloL 3.125 MG TABLET PO ×2 (09:26→21:24)
[2020-08-01] MEDS: Enoxaparin Sodium 60 MG/0.6 ML SYRINGE 50 MG SUBCUT (09:26)
--- NOTE | 2020-08-01 12:17 | HO.PM.IMPN ---
Subjective Subjective Date of Service: 08/01/20 Interval History: Seen in follow up for acute respiratoyr failure, COPD exacerbation and now elevated troponin I. She feels better than yesterday, daughter with her at bedside Review of Systems Gen: no fever Resp: sob, no cough CV: no chest, no BOWERS, no leg edema GI: No n/v, no abd pain Neuro: No confusion Physical Exam Vital Signs: Vital Signs: Last Vital Signs Temp 97.2 F 08/01/20 12:00 Pulse 84 08/01/20 12:00 Resp 17 08/01/20 12:00 BP 140/66 H 08/01/20 12:00 Pulse Ox 96 08/01/20 12:00 Oxygen Flow Rate 2 07/28/20 22:25 Body Mass Index 18.8 Const: Other: General: AO X 3, no acute distress Resp: CTA bilateral CVS: S1,S2,RRR GI: +BS, NT, no distention Skin: No rash Neuro: motor grossly intact Psych: appropriate affect Objective Data Current Medications Generic Name Dose Route Start Last Admin Trade Name Jackeline PRN Reason Stop Dose Admin Acetaminophen 650 mg 07/29/20 03:00 08/01/20 07:31 Acetaminophen 325 Mg Tablet PO 650 mg Q6H PRN Administration Pain, Mild (Pain Scale 1-3) Albuterol Sulfate 2.5 mg 07/29/20 13:39 Albuterol Sulfate (0.083%) 2.5 Mg/3 Ml Vial.Neb INHALE Q6H PRN Shortness Of Breath Or Wheezing Albuterol Sulfate 2 puff 07/29/20 13:39 08/01/20 05:43 Albuterol Sulfate 90 Mcg 8 Gm Inhaler INHALE 2 puff QID PRN Administration shortness of breath or wheezing Albuterol/Ipratropium 3 ml 07/29/20 03:03 07/29/20 04:42 Albuterol/Iprat 2.5/0.5mg 3 Ml Ampul.Neb INHALE 3 ml RQ4H PRN Administration Shortness of Breath/Wheezing Albuterol/Ipratropium 3 ml 07/29/20 08:00 08/01/20 08:21 Albuterol/Iprat 2.5/0.5mg 3 Ml Ampul.Neb INHALE 3 ml RQ6H WHILE AWAKE MELANIE Administration Aspirin 81 mg 07/29/20 14:30 08/01/20 09:26 Aspirin 81 Mg Tab.Chew PO 81 mg DAILY MELANIE Administration Atorvastatin Calcium 40 mg 07/29/20 21:00 07/31/20 21:17 Atorvastatin Calcium 40 Mg Tablet PO 40 mg BEDTIME MELANIE Administration Carvedilol 3.125 mg 07/30/20 21:00 08/01/20 09:26 Carvedilol 3.125 Mg Tablet PO 3.125 mg BID MELANIE Administration Protocol Docusate Sodium 100 mg 07/29/20 13:39 Docusate Sodium 100 Mg Capsule PO DAILY PRN Constipation Enoxaparin Sodium 50 mg 07/30/20 09:00 08/01/20 09:26 Enoxaparin Sodium 60 Mg/0.6 Ml Syringe SUBCUT 50 mg Q12H MELANIE Administration Fluoxetine HCl 20 mg 07/29/20 13:45 08/01/20 09:26 Fluoxetine Hcl 20 Mg Capsule PO 20 mg DAILY MELANIE Administration Fluticasone Propionate 1 spray 07/29/20 13:39 07/31/20 10:01 Fluticasone Propionate Nasal 16 Gm [place] NOSTRIL-B 1 spray BID PRN Administration allergy symptoms Levofloxacin 250 mg 07/30/20 06:00 08/01/20 05:13 Levofloxacin 250 Mg Tablet PO 250 mg Q24H MELANIE Administration Lisinopril 5 mg 07/30/20 10:00 08/01/20 09:26 Lisinopril 5 Mg Tablet PO 5 mg DAILY MELANIE Administration Protocol Lorazepam 1 mg 07/29/20 13:39 08/01/20 07:32 Lorazepam 1 Mg Tablet PO 1 mg BID PRN Administration anxiety Methylprednisolone Sodium Succinate 40 mg 07/29/20 20:00 08/01/20 04:44 Methylprednisolone Sod Succ 40 Mg/Ml Vial IVPUSH 40 mg Q8H MELANIE Administration Nicotine 14 mg 07/29/20 10:45 08/01/20 09:25 Nicotine 14 Mg Patch.Td24 TRANSDERMA 14 mg DAILY MELANIE Administration Nitroglycerin 0.4 mg 07/29/20 03:00 Nitroglycerin 0.4 Mg Tab.Subl SUBLINGUAL Q5M PRN Chest Pain Oxycodone HCl 5 mg 07/29/20 10:35 07/30/20 08:50 Oxycodone Hcl Immed Release 5 Mg Tablet PO 5 mg Q6H PRN Administration Pain, Severe (Pain Scale 7-10) Pharmacy Consult 1 each 07/29/20 07:18 Consult Rx Other Drug Dosing MISCELLANE DAILY PRN Consult order Pharmacy Consult 1 each 07/29/20 10:41 Consult Rx Perform Med Rec MISCELLANE ONCE PRN Consult order Polyethylene Glycol 17 gm 07/29/20 13:39 Polyethylene Glycol 3350 17 Gm Powd.Pack PO DAILY PRN Constipation Sodium Chloride 3 ml 07/29/20 08:00 08/01/20 07:32 0.9 % Sodium Chloride Flush 3 Ml Syringe IVFLUSH 3 ml QSHIFT MELANIE Administration Tiotropium [place] 1 puff 07/30/20 09:00 08/01/20 08:21 Tiotropium [place] 18 Mcg Cap.W.Dev INHALE 1 puff RDAILY MELANIE Administration Labs CBC & Chem 7: 08/01/20 08:34 08/01/20 08:34 Microbiology Microbiology Results: Microbiology 07/28/20 23:38 Blood - Venous Blood Culture - Preliminary No growth after 48 hours. 07/28/20 23:39 Blood - Venous Blood Culture - Preliminary No growth after 48 hours. 07/29/20 00:00 Urine clean catch - Clean Catch Midstream Urine Culture - Final No growth. Assessment and Plan (1) COPD exacerbation: Status: Acute (2) Smoker: Status: Acute Assessment and Plan: 80-year-old female with a past medical history of anxiety, depression, insomnia, CHF, COPD, CKD, hypertension, degenerative spine disease presented to the hospital with a chief complaint of shortness of breath and found to have elevate troponin NSTEMI possible type 2 from COPD exacerbation. Repeat trop and ECG today, start anticoagulation with Lovenox for 48 hours, ASA, statin, BB. Echo shows Moderate to severe LV systolic dysfunction with mid and apical segment hypokinesis, finding overall suggestive of stress-induced cardiomyopathy, CAD cannot be entirely ruled out, ejection fraction is 30-35% . Stress tomorrow COPD exacerbation and acute bronchitis--improved continue IV solumedrol to oral prednisone,, Bronchdilators, Oxygen and Levaquin for presumed bronchitis, cough meds PRN. Pulmonoary following, smoking cessationdiscussed again history of CHF presently euvolemic HTN--Atenolol changed to Coreg, Lisinopril started d/t cardiomyopathy I disucssed plan of care with daughter at bedside
[2020-08-01] MEDS: predniSONE 20 MG TABLET 40 MG PO (14:19)
[2020-08-01] MEDS: Atorvastatin Calcium 40 MG TABLET PO (21:24)
[2020-08-02] VITALS (10 sets, daily range): BP systolic 130–146; BP diastolic 55–78; PULSE 82–100; RESP 14–20; TEMP 36.2–36.6; O2SAT 92–98
[2020-08-02] MEDS: LORazepam 1 MG TABLET PO ×3 (00:59→21:05)
[2020-08-02] MEDS: levoFLOXacin 250 MG TABLET PO (06:46)
[2020-08-02] MEDS: Albuterol/Iprat 2.5/0.5MG 3 ML AMPUL.NEB INHALE ×3 (07:48→20:33)
--- NOTE | 2020-08-02 07:51 | P.CDIC_ITS ---
CDI Concurrent Query Service Date: 08/02/20 Documentation Clarification: Please clarify if you are treating a proba ble/suspected/likely or confirmed: Mild Protein Calorie Malnutrition Moderate Protein Calorie Malnutrition Severe Protein Calorie Malnutrition Provider Response: Moderate Protein-Calorie Malnutrition PLEASE DO NOT DELETE/MODIFY EXISTING CONTENT Additional information is needed in order to code to the highest accuracy and appropriate Severity of Illness (SOI). Please clarify the information noted below in your progress notes and discharge summary. Risk Factors/Clinical Indicators/Treatments 80 year old female admitted with COPD Exacerbation HT 5'6 WT 53.07 kg BMI 18.9 Total protein 6.3 Albumin 3.6 CDS: Tram Walker RN Contact Number: [phone] Please Review the information above and exercise your independent professional judgment in responding to the query. If you concur, pleas document in the PROGRESS NOTES and DISCHARGE SUMMARY. If you do not agree with the query, please document in the query above. THIS QUERY IS PART OF THE PERMANENT MEDICAL RECORD
[2020-08-02] MEDS: Nicotine 14 MG PATCH.TD24 TRANSDERMA (08:32)
[2020-08-02] MEDS: Enoxaparin Sodium 40 MG/0.4 ML SYRINGE SUBCUT (08:32)
[2020-08-02] MEDS: 0.9 % Sodium Chloride Flush 3 ML SYRINGE IVFLUSH ×2 (08:33→15:26)
[2020-08-02] MEDS: Acetaminophen 325 MG TABLET 650 MG PO ×3 (08:33→21:32)
[2020-08-02] MEDS: predniSONE 20 MG TABLET 40 MG PO (08:33)
[2020-08-02] MEDS: Aspirin 81 MG TAB.CHEW PO (08:35)
[2020-08-02] MEDS: FLUoxetine HCl 20 MG CAPSULE PO (08:35)
[2020-08-02] MEDS: lisinopriL 5 MG TABLET PO (08:35)
[2020-08-02] MEDS: carvediloL 3.125 MG TABLET PO ×2 (08:36→21:01)
--- NOTE | 2020-08-02 10:09 | P.PNCA_ITS ---
Subjective Subjective Date of Service: 08/02/20 <MARRY Ramirez - Last Filed: 08/02/20 13:13> 08/02/20 <Kingsley Smith MD - Last Filed: 08/02/20 13:25> Principal diagnosis: Shortness of breath, COPD, Elevated Troponin, Abnormal EKG <MARRY Ramirez - Last Filed: 08/02/20 13:13> Interval history: Cardiology follow up for elevated troponin, abnormal EKG. Seen at 0830. Today she is observed resting in bed, eating breakfast. She reports breathing is comfortable. Wearing O2 with cannula. No chest pains, palpitations, dizziness, edema. Slept well. Daughter at bedside. <MARRY Ramirez - Last Filed: 08/02/20 13:13> Review of Systems Review of Systems as above <MARRY Ramirez - Last Filed: 08/02/20 13:13> Physical Exam Vital Signs: Last Vital Signs Temp 97.1 F 08/02/20 07:48 Pulse 91 08/02/20 07:50 Resp 20 08/02/20 07:48 BP 139/78 08/02/20 07:48 Pulse Ox 95 08/02/20 07:48 Oxygen Flow Rate 2 07/28/20 22:25 Body Mass Index 18.8 <MARRY Ramirez - Last Filed: 08/02/20 13:13> Const General: cooperative, no acute distress, alert and awake <MARRY Ramirez - Last Filed: 08/02/20 13:13> Orientation/consciousness: patient oriented x3 <MARRY Ramirez - Last Filed: 08/02/20 13:13> Neck Neck: Yes normal visual inspection and Yes no JVD <MARRY Ramirez - Last Filed: 08/02/20 13:13> Resp Other: Lung sounds diminished throughout <MARRY Ramirez - Last Filed: 08/02/20 13:13> Effort & Inspection: normal respiratory effort, able to speak in complete sentences and not labored <MARRY Ramirez - Last Filed: 08/02/20 13:13> Auscultation: clear to auscultation bilaterally <EMILIANO RamirezC - Last Filed: 08/02/20 13:13> Cardio Palpation: normal PMI <EMILIANO RamirezC - Last Filed: 08/02/20 13:13> Rate: regular rate <EMILIANO RamirezC - Last Filed: 08/02/20 13:13> Rhythm: regular rhythm <EMILIANO RamirezC - Last Filed: 08/02/20 13:13> Heart sounds: S1 normal heart sound present and S2 normal heart sound present <Bess Dhillon NP-C - Last Filed: 08/02/20 13:13> Peripheral pulses: Peripheral pulses 2+ throughout <EMILIANO Ramirez - Last Filed: 08/02/20 13:13> GI Inspection: Yes normal to inspection <EMILIANO Ramirez - Last Filed: 08/02/20 13:13> Neuro General: patient oriented x3 <EMILIANO RamirezC - Last Filed: 08/02/20 13:13> Extrem General: Yes normal to inspection and No edema <Bess Dhillon NP-C - Last Filed: 08/02/20 13:13> Results Labs and Meds Result diagrams: : 08/01/20 08:34 08/01/20 08:34 <MARRY Ramirez - Last Filed: 08/02/20 13:13> Progress Note: A&P Assessment and plan (1) Elevated troponin: Status: Acute <MARRY Ramirez - Last Filed: 08/02/20 13:13> Assessment and Plan: Elevated Troponin with Echo showing EF 30-35%, wall motion abnormali ty with mid and apical hypokinesis. EKGs showing T wave inversions inferiorly and lateral leads. 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 LAD ischemia not ruled out. Was treated with Lovenox for 48 hrs. Had been started on Aspirin, atorvastatin, Carvedilol, Lisinopril. Rest portion of nuclear stress test done on 07/30. Stress portion being completed today. Further treatment plan to be determined once stress test results are known. Ongoing mgt for her COPD. <MARRY Ramirez - Last Filed: 08/02/20 13:13> (2) Abnormal EKG: Status: Acute <MARRY Ramirez - Last Filed: 08/02/20 13:13> Assessment and Plan: T wave inversions inferiorly, V3-V6 <MARRY Ramirez - Last Filed: 08/02/20 13:13> (3) COPD exacerbation: Status: Acute <MARRY Ramirez - Last Filed: 08/02/20 13:13> Assessment and Plan: Hx COPD, emphysema. Had increased sob prior to admit which she relates to hot weather. Had hypoxia on admit. Using O2 with nasal cannula this admit. Ongoing mgt COPD as directed by hospitalist <MARRY Ramirez - Last Filed: 08/02/20 13:13> Fall Risk Details Current Medications: Current Medications Generic Name Dose Route Start Last Admin Trade Name Abdiasq PRN Reason Stop Dose Admin Acetaminophen 650 mg 07/29/20 03:00 08/02/20 08:33 Acetaminophen 325 Mg Tablet PO 650 mg Q6H PRN Administration Pain, Mild (Pain Scale 1-3) Albuterol Sulfate 2.5 mg 07/29/20 13:39 Albuterol Sulfate (0.083%) 2.5 Mg/3 Ml Vial.Neb INHALE Q6H PRN Shortness Of Breath Or Wheezing Albuterol Sulfate 2 puff 07/29/20 13:39 08/01/20 05:43 Albuterol Sulfate 90 Mcg 8 Gm Inhaler INHALE 2 puff QID PRN Administration shortness of breath or wheezing Albuterol/Ipratropium 3 ml 07/29/20 03:03 07/29/20 04:42 Albuterol/Iprat 2.5/0.5mg 3 Ml Ampul.Neb INHALE 3 ml RQ4H PRN Administration Shortness of Breath/Wheezing Albuterol/Ipratropium 3 ml 07/29/20 08:00 08/02/20 07:48 Albuterol/Iprat 2.5/0.5mg 3 Ml Ampul.Neb INHALE 3 ml RQ6H WHILE AWAKE MELANIE Administration Aspirin 81 mg 07/29/20 14:30 08/02/20 08:35 Aspirin 81 Mg Tab.Chew PO 81 mg DAILY MELANIE Administration Atorvastatin Calcium 40 mg 07/29/20 21:00 08/01/20 21:24 Atorvastatin Calcium 40 Mg Tablet PO 40 mg BEDTIME MELANIE Administration Carvedilol 3.125 mg 07/30/20 21:00 08/02/20 08:36 Carvedilol 3.125 Mg Tablet PO 3.125 mg BID MELANIE Administration Protocol Docusate Sodium 100 mg 07/29/20 13:39 Docusate Sodium 100 Mg Capsule PO DAILY PRN Constipation Enoxaparin Sodium 40 mg 08/02/20 08:00 08/02/20 08:32 Enoxaparin Sodium 40 Mg/0.4 Ml Syringe SUBCUT 40 mg Q24H MELANIE Administration Fluoxetine HCl 20 mg 07/29/20 13:45 08/02/20 08:35 Fluoxetine Hcl 20 Mg Capsule PO 20 mg DAILY MELANIE Administration Fluticasone Propionate 1 spray 07/29/20 13:39 07/31/20 10:01 Fluticasone Propionate Nasal 16 Gm [place] NOSTRIL-B 1 spray BID PRN Administration allergy symptoms Levofloxacin 250 mg 07/30/20 06:00 08/02/20 06:46 Levofloxacin 250 Mg Tablet PO 250 mg Q24H MELANIE Administration Lisinopril 5 mg 07/30/20 10:00 08/02/20 08:35 Lisinopril 5 Mg Tablet PO 5 mg DAILY MELANIE Administration Protocol Lorazepam 1 mg 07/29/20 13:39 08/02/20 08:41 Lorazepam 1 Mg Tablet PO 1 mg BID PRN Administration anxiety Nicotine 14 mg 07/29/20 10:45 08/02/20 08:32 Nicotine 14 Mg Patch.Td24 TRANSDERMA 14 mg DAILY MELANIE Administration Nitroglycerin 0.4 mg 07/29/20 03:00 Nitroglycerin 0.4 Mg Tab.Subl SUBLINGUAL Q5M PRN Chest Pain Oxycodone HCl 5 mg 07/29/20 10:35 07/30/20 08:50 Oxycodone Hcl Immed Release 5 Mg Tablet PO 5 mg Q6H PRN Administration Pain, Severe (Pain Scale 7-10) Pharmacy Consult 1 each 07/29/20 07:18 Consult Rx Other Drug Dosing MISCELLANE DAILY PRN Consult order Pharmacy Consult 1 each 07/29/20 10:41 Consult Rx Perform Med Rec MISCELLANE ONCE PRN Consult order Polyethylene Glycol 17 gm 07/29/20 13:39 Polyethylene Glycol 3350 17 Gm Powd.Pack PO DAILY PRN Constipation Prednisone 40 mg 08/02/20 09:00 08/02/20 08:33 Prednisone 20 Mg Tablet PO 40 mg DAILY MELANIE Administration Sodium Chloride 3 ml 07/29/20 08:00 08/02/20 08:33 0.9 % Sodium Chloride Flush 3 Ml Syringe IVFLUSH 3 ml QSHIFT MELANIE Administration Tiotropium [place] 1 puff 07/30/20 09:00 08/02/20 07:49 Tiotropium [place] 18 Mcg Cap.W.Dev INHALE 1 puff RDAILY MELANIE Administration <MARRY Ramirez - Last Filed: 08/02/20 13:13> Time Spent With Patient Time: Total time spent is greater than 50% in coordination of care (as documented) at patient's floor/unit and/or counseling patient: <MARRY Ramirez - Last Filed: 08/02/20 13:13> Time with patient: 15 - 24 minutes <MARRY Ramirez - Last Filed: 08/02/20 13:13> Procedures Date of Service Date of Service: 08/02/20 <MARRY Ramirez - Last Filed: 08/02/20 13:13>
--- NOTE | 2020-08-02 16:44 | HO.PM.IMPN ---
Subjective Subjective Date of Service: 08/02/20 Interval History: Seen in follow up for acute respiratoyr failure, COPD exacerbation and now elevated troponin I. she feels fine, Review of Systems Gen: no fever Resp: sob, no cough CV: no chest, no BOWERS, no leg edema GI: No n/v, no abd pain Neuro: No confusion Physical Exam Vital Signs: Vital Signs: Last Vital Signs Temp 97.3 F 08/02/20 15:54 Pulse 90 08/02/20 15:54 Resp 16 08/02/20 15:54 BP 140/60 H 08/02/20 15:54 Pulse Ox 96 08/02/20 15:54 Oxygen Flow Rate 2 07/28/20 22:25 Body Mass Index 18.8 Const: Other: General: AO X 3, no acute distress Resp: CTA bilateral CVS: S1,S2,RRR GI: +BS, NT, no distention Skin: No rash Neuro: motor grossly intact Psych: appropriate affect Objective Data Current Medications Generic Name Dose Route Start Last Admin Trade Name Abdiasq PRN Reason Stop Dose Admin Acetaminophen 650 mg 07/29/20 03:00 08/02/20 15:31 Acetaminophen 325 Mg Tablet PO 650 mg Q6H PRN Administration Pain, Mild (Pain Scale 1-3) Albuterol Sulfate 2.5 mg 07/29/20 13:39 Albuterol Sulfate (0.083%) 2.5 Mg/3 Ml Vial.Neb INHALE Q6H PRN Shortness Of Breath Or Wheezing Albuterol Sulfate 2 puff 07/29/20 13:39 08/01/20 05:43 Albuterol Sulfate 90 Mcg 8 Gm Inhaler INHALE 2 puff QID PRN Administration shortness of breath or wheezing Albuterol/Ipratropium 3 ml 07/29/20 03:03 07/29/20 04:42 Albuterol/Iprat 2.5/0.5mg 3 Ml Ampul.Neb INHALE 3 ml RQ4H PRN Administration Shortness of Breath/Wheezing Albuterol/Ipratropium 3 ml 07/29/20 08:00 08/02/20 14:56 Albuterol/Iprat 2.5/0.5mg 3 Ml Ampul.Neb INHALE 3 ml RQ6H WHILE AWAKE MELANIE Administration Aspirin 81 mg 07/29/20 14:30 08/02/20 08:35 Aspirin 81 Mg Tab.Chew PO 81 mg DAILY MELANIE Administration Atorvastatin Calcium 40 mg 07/29/20 21:00 08/01/20 21:24 Atorvastatin Calcium 40 Mg Tablet PO 40 mg BEDTIME MELANIE Administration Carvedilol 3.125 mg 07/30/20 21:00 08/02/20 08:36 Carvedilol 3.125 Mg Tablet PO 3.125 mg BID MELANIE Administration Protocol Docusate Sodium 100 mg 07/29/20 13:39 Docusate Sodium 100 Mg Capsule PO DAILY PRN Constipation Enoxaparin Sodium 40 mg 08/02/20 08:00 08/02/20 08:32 Enoxaparin Sodium 40 Mg/0.4 Ml Syringe SUBCUT 40 mg Q24H MELANIE Administration Fluoxetine HCl 20 mg 07/29/20 13:45 08/02/20 08:35 Fluoxetine Hcl 20 Mg Capsule PO 20 mg DAILY MELANIE Administration Fluticasone Propionate 1 spray 07/29/20 13:39 07/31/20 10:01 Fluticasone Propionate Nasal 16 Gm [place] NOSTRIL-B 1 spray BID PRN Administration allergy symptoms Levofloxacin 250 mg 07/30/20 06:00 08/02/20 06:46 Levofloxacin 250 Mg Tablet PO 250 mg Q24H MELANIE Administration Lisinopril 5 mg 07/30/20 10:00 08/02/20 08:35 Lisinopril 5 Mg Tablet PO 5 mg DAILY MELANIE Administration Protocol Lorazepam 1 mg 07/29/20 13:39 08/02/20 08:41 Lorazepam 1 Mg Tablet PO 1 mg BID PRN Administration anxiety Nicotine 14 mg 07/29/20 10:45 08/02/20 08:32 Nicotine 14 Mg Patch.Td24 TRANSDERMA 14 mg DAILY MELANIE Administration Nitroglycerin 0.4 mg 07/29/20 03:00 Nitroglycerin 0.4 Mg Tab.Subl SUBLINGUAL Q5M PRN Chest Pain Oxycodone HCl 5 mg 07/29/20 10:35 07/30/20 08:50 Oxycodone Hcl Immed Release 5 Mg Tablet PO 5 mg Q6H PRN Administration Pain, Severe (Pain Scale 7-10) Pharmacy Consult 1 each 07/29/20 07:18 Consult Rx Other Drug Dosing MISCELLANE DAILY PRN Consult order Pharmacy Consult 1 each 07/29/20 10:41 Consult Rx Perform Med Rec MISCELLANE ONCE PRN Consult order Polyethylene Glycol 17 gm 07/29/20 13:39 Polyethylene Glycol 3350 17 Gm Powd.Pack PO DAILY PRN Constipation Prednisone 40 mg 08/02/20 09:00 08/02/20 08:33 Prednisone 20 Mg Tablet PO 40 mg DAILY MELANIE Administration Sodium Chloride 3 ml 07/29/20 08:00 08/02/20 15:26 0.9 % Sodium Chloride Flush 3 Ml Syringe IVFLUSH 3 ml QSHIFT MELANIE Administration Tiotropium [place] 1 puff 07/30/20 09:00 08/02/20 07:49 Tiotropium [place] 18 Mcg Cap.W.Dev INHALE 1 puff RDAILY MELANIE Administration Labs CBC & Chem 7: 08/01/20 08:34 08/01/20 08:34 Imaging Chest x-ray: Radiologist's impression: Impressions Myocardial Perfusion Scan Nuc Med 07/30/20 09:26 Impression: 1. Myocardial perfusion imaging study shows normal myocardial perfusion 2. Gated LVEF is 36% with stress and 45% with stress 3. Transient ischemic dilatation not present EKG is nondiagnostic for ischemia Assessment and Plan (1) COPD exacerbation: Status: Acute (2) Smoker: Status: Acute Assessment and Plan: 80-year-old female with a past medical history of anxiety, depression, insomnia, CHF, COPD, CKD, hypertension, degenerative spine disease presented to the hospital with a chief complaint of shortness of breath and found to have elevate troponin NSTEMI possible type 2 from COPD exacerbation. Repeat trop and ECG today, start anticoagulation with Lovenox for 48 hours, ASA, statin, BB. Echo shows Moderate to severe LV systolic dysfunction with mid and apical segment hypokinesis, finding overall suggestive of stress-induced cardiomyopathy, stress is normal. COPD exacerbation and acute bronchitis--improved continue Prednisone, Bronchdilators, Oxygen and Levaquin for presumed bronchitis, cough meds PRN. Pulmonoary following, smoking cessationdiscussed again history of CHF presently euvolemic HTN--Atenolol changed to Coreg, Lisinopril started d/t cardiomyopathy I disucssed plan of care with daughter at bedside
[2020-08-02] MEDS: Atorvastatin Calcium 40 MG TABLET PO (21:01)
[2020-08-03] VITALS (10 sets, daily range): BP systolic 113–149; BP diastolic 58–71; PULSE 75–105; RESP 16–20; TEMP 36.1–37.2; O2SAT 90–97
[2020-08-03] MEDS: 0.9 % Sodium Chloride Flush 3 ML SYRINGE IVFLUSH ×4 (00:23→20:57)
[2020-08-03] MEDS: Acetaminophen 325 MG TABLET 650 MG PO ×3 (05:34→20:57)
[2020-08-03] MEDS: levoFLOXacin 250 MG TABLET PO (05:34)
--- NOTE | 2020-08-03 06:30 | PC.NURSE ---
CALL RECEIVED FROM NURSING HEAD GREASE MAKER AT [employer]. 0525 STATING THAT THIS PATIENT SHOWING A BUNDLE CHANGE ON HER CARDIAC RHYTHM. NURSING HEAD GREASE MAKER SENT DETAILS TO HOSPITALIST ON DUTY WITH NO NEW ORDERS. PATIENT AWAKE, CALM, ASKING FOR TYLENOL FOR MILD HEADACHE ONLY. NO CP OR PRESSURE, NO DIZZINESS, VSS, O2 IN USE. EVENT REVIEW PAPERWORK DELIVERED TO [place] [id number] FROM [facility] [place] IN CHART AND THIS [facility] TUTOR TOLD NO NEW ORDERS NEEDED. WILL CONTINUE TO MONITOR.
--- NOTE | 2020-08-03 06:40 | PC.NURSE ---
NOTED AT 0638 THAT HOSPITALIST ON DUTY WHOM ALSO VIEWED PREVIOUS EVENT REVIEW CARDIAC INFORMATION PASSED TO HER BY NURSING RETAIL WIRELESS ASSOCIATE HAS NOW PLACED STAT LABWORK FOR THIS PT FOR BMP AND MAGNESIUM LEVEL.
[2020-08-03] MEDS: Albuterol/Iprat 2.5/0.5MG 3 ML AMPUL.NEB INHALE ×3 (08:14→20:01)
[2020-08-03] MEDS: Enoxaparin Sodium 40 MG/0.4 ML SYRINGE SUBCUT (09:11)
[2020-08-03] MEDS: predniSONE 20 MG TABLET 40 MG PO (09:12)
[2020-08-03] MEDS: carvediloL 3.125 MG TABLET PO ×2 (09:12→20:58)
[2020-08-03] MEDS: Aspirin 81 MG TAB.CHEW PO (09:12)
[2020-08-03] MEDS: FLUoxetine HCl 20 MG CAPSULE PO (09:12)
[2020-08-03] MEDS: Nicotine 14 MG PATCH.TD24 TRANSDERMA (09:13)
[2020-08-03] MEDS: lisinopriL 5 MG TABLET PO (09:13)
[2020-08-03] MEDS: LORazepam 1 MG TABLET PO (09:20)
[2020-08-03 09:41] LABS: Anion Gap 9 (12-20); Blood Urea Nitrogen 41 mg/dL (9-16); Calcium 8.4 mg/dL (8.4-10.2); Carbon Dioxide 32 mmol/L (22-29); Chloride 104 mmol/L (96-108); Creatinine Clr Calc Pharmacy 34.9; Estimated Glomerular Filt Rate 51; Glucose Random 69 mg/dL (60-115); Magnesium 1.9 mg/dL (1.6-2.6); Potassium 3.9 mmol/L (3.3-5.1); Sodium 141 mmol/L (135-145)
--- NOTE | 2020-08-03 09:48 | MHC.CM.PN ---
PATIENT IS ASKING FOR A NEW HCP. DOCUMENTATION COMPLETED, REMOVING PREVIOUS [place] AND HAVING ONLY HER DAUGHTER, ROD SOLE AGENT. COPY NOW IN CHART.
--- NOTE | 2020-08-03 10:08 | P.PNCA_ITS ---
Subjective Subjective Date of Service: 08/03/20 Principal diagnosis: Shortness of breath, COPD, Elevated Troponin, Abnormal EKG Interval history: She states that she feels okay. No specific cardiac symptoms like angina. Review of Systems Review of Systems Yes all other systems are reviewed and are negative Cardiovascular: Reports as per HPI, Reports no additional cardiovascular complaints, Denies acrocyanosis, Denies cool extremities, Denies painful fingertips, Denies chest pain, Denies chest pain at rest, Denies diaphoresis, Denies syncope, Denies irregular heart rhythm, Denies claudication, Denies leg edema, Denies lightheadedness, Denies palpitations and Reports dyspnea Respiratory: Reports dyspnea Denies syncope Endocrine: Denies palpitations Physical Exam Vital Signs: Last Vital Signs Temp 98.3 F 08/03/20 07:40 Pulse 75 08/03/20 08:26 Resp 17 08/03/20 07:40 BP 149/71 H 08/03/20 07:40 Pulse Ox 97 08/03/20 07:40 Oxygen Flow Rate 2 07/28/20 22:25 Body Mass Index 18.8 Const General: cooperative, comfortable and no acute distress Orientation/consciousness: patient oriented x3 [facility] Other: Unremarkable Neck Neck: Yes normal visual inspection Chest Chest palpation & inspection: normal inspection of the chest Resp Auscultation: clear to auscultation bilaterally, no crackles and no wheezes Cardio Jugular venous distension: no JVD Palpation: normal PMI Heart sounds: S1 normal heart sound present, S2 normal heart sound present, no gallops, no murmurs and no rubs GI Palpation (GI): Soft to palpation Back/Spine/Pelvis Other: unremarkable Skin General skin exam: no rashes or lesions noted Neuro General: patient oriented x3 Extrem General: Yes no clubbing, cyanosis or edema Psych Mental Status: mental status grossly normal Results Labs and Meds Result diagrams: 08/01/20 08:34 08/03/20 08:49 Lab results: Laboratory Results - last 24 hr 08/03/20 08:49 Sodium 141 Potassium 3.9 Chloride 104 Carbon Dioxide 32 H Anion Gap 9 L BUN 41 H Creatinine 1.04 Estim Creat Clear Calc 34.9 Estimated GFR 51 Random Glucose 69 D Calcium 8.4 Magnesium 1.9 Imaging Radiologist's impression: Impressions Myocardial Perfusion Scan Nuc Med 07/30/20 09:26 Impression: 1. Myocardial perfusion imaging study shows normal myocardial perfusion 2. Gated LVEF is 36% with stress and 45% with stress 3. Transient ischemic dilatation not present EKG is nondiagnostic for ischemia Progress Note: A&P Assessment and plan (1) Stress-induced cardiomyopathy: Status: Acute (2) NSTEMI (non-ST elevated myocardial infarction): Status: Acute (3) Atherosclerotic cardiovascular disease: Status: Acute (4) COPD (chronic obstructive pulmonary disease): Status: Acute Assessment and Plan: Cardiac studies reviewed. Troponins were in the NSTEMI range. Echocardiogram with LVEF 30-35% and wall motion abnormalities suggesting stress-induced ca rdiomyopathy. However, myocardial perfusion imaging study shows normal perfusion. Chest CT scan shows atherosclerotic calcification of thoracic arch. Overall, suspected stress-induced cardiomyopathy. However she also has vascular disease. Her LDL is 135 mg/dL. Can treat her with Coreg, SHANIA inhibitors and aspirin/statins. Will arrange follow-up in our office. She states that she is traveling to [place] to be with her daughter and when she returns we can see her. Fall Risk Details Current Medications: Current Medications Generic Name Dose Route Start Last Admin Trade Name Freq PRN Reason Stop Dose Admin Acetaminophen 650 mg 07/29/20 03:00 08/03/20 05:34 Acetaminophen 325 Mg Tablet PO 650 mg Q6H PRN Administration Pain, Mild (Pain Scale 1-3) Albuterol Sulfate 2.5 mg 07/29/20 13:39 Albuterol Sulfate (0.083%) 2.5 Mg/3 Ml Vial.Neb INHALE Q6H PRN Shortness Of Breath Or Wheezing Albuterol Sulfate 2 puff 07/29/20 13:39 08/01/20 05:43 Albuterol Sulfate 90 Mcg 8 Gm Inhaler INHALE 2 puff QID PRN Administration shortness of breath or wheezing Albuterol/Ipratropium 3 ml 07/29/20 03:03 07/29/20 04:42 Albuterol/Iprat 2.5/0.5mg 3 Ml Ampul.Neb INHALE 3 ml RQ4H PRN Administration Shortness of Breath/Wheezing Albuterol/Ipratropium 3 ml 07/29/20 08:00 08/03/20 08:14 Albuterol/Iprat 2.5/0.5mg 3 Ml Ampul.Neb INHALE 3 ml RQ6H WHILE AWAKE MELANIE Administration Aspirin 81 mg 07/29/20 14:30 08/03/20 09:12 Aspirin 81 Mg Tab.Chew PO 81 mg DAILY MELANIE Administration Atorvastatin Calcium 40 mg 07/29/20 21:00 08/02/20 21:01 Atorvastatin Calcium 40 Mg Tablet PO 40 mg BEDTIME MELANIE Administration Carvedilol 3.125 mg 07/30/20 21:00 08/03/20 09:12 Carvedilol 3.125 Mg Tablet PO 3.125 mg BID MELANIE Administration Protocol Docusate Sodium 100 mg 07/29/20 13:39 Docusate Sodium 100 Mg Capsule PO DAILY PRN Constipation Enoxaparin Sodium 40 mg 08/02/20 08:00 08/03/20 09:11 Enoxaparin Sodium 40 Mg/0.4 Ml Syringe SUBCUT 40 mg Q24H MELANIE Administration Fluoxetine HCl 20 mg 07/29/20 13:45 08/03/20 09:12 Fluoxetine Hcl 20 Mg Capsule PO 20 mg DAILY MELANIE Administration Fluticasone Propionate 1 spray 07/29/20 13:39 07/31/20 10:01 Fluticasone Propionate Nasal 16 Gm [place] NOSTRIL-B 1 spray BID PRN Administration allergy symptoms Levofloxacin 250 mg 07/30/20 06:00 08/03/20 05:34 Levofloxacin 250 Mg Tablet PO 250 mg Q24H MELANIE Administration Lisinopril 5 mg 07/30/20 10:00 08/03/20 09:13 Lisinopril 5 Mg Tablet PO 5 mg DAILY MELANIE Administration Protocol Lorazepam 1 mg 07/29/20 13:39 08/03/20 09:20 Lorazepam 1 Mg Tablet PO 1 mg BID PRN Administration anxiety Nicotine 14 mg 07/29/20 10:45 08/03/20 09:13 Nicotine 14 Mg Patch.Td24 TRANSDERMA 14 mg DAILY MELANIE Administration Nitroglycerin 0.4 mg 07/29/20 03:00 Nitroglycerin 0.4 Mg Tab.Subl SUBLINGUAL Q5M PRN Chest Pain Oxycodone HCl 5 mg 07/29/20 10:35 07/30/20 08:50 Oxycodone Hcl Immed Release 5 Mg Tablet PO 5 mg Q6H PRN Administration Pain, Severe (Pain Scale 7-10) Pharmacy Consult 1 each 07/29/20 07:18 Consult Rx Other Drug Dosing MISCELLANE DAILY PRN Consult order Pharmacy Consult 1 each 07/29/20 10:41 Consult Rx Perform Med Rec MISCELLANE ONCE PRN Consult order Polyethylene Glycol 17 gm 07/29/20 13:39 Polyethylene Glycol 3350 17 Gm Powd.Pack PO DAILY PRN Constipation Prednisone 40 mg 08/02/20 09:00 08/03/20 09:12 Prednisone 20 Mg Tablet PO 40 mg DAILY MELANIE Administration Sodium Chloride 3 ml 07/29/20 08:00 08/03/20 09:14 0.9 % Sodium Chloride Flush 3 Ml Syringe IVFLUSH 3 ml QSHIFT MELANIE Administration Tiotropium [place] 1 puff 07/30/20 09:00 08/03/20 08:14 Tiotropium [place] 18 Mcg Cap.W.Dev INHALE 1 puff RDAILY MELANIE Administration Time Spent With Patient Time: Total time spent is greater than 50% in coordination of care (as d ocumented) at patient's floor/unit and/or counseling patient: Time with patient: less than 15 minutes Procedures Date of Service Date of Service: 08/03/20
--- NOTE | 2020-08-03 12:32 | MHC.CLN ---
F/U PT COMPLAINED THAT ENSURE SUPPLEMENT IS TOO SWEET AND SHE DISLIKES WILL D/C ENSURE BID CONTINUE TO MONITOR PO INTAKE CLOSELY
--- NOTE | 2020-08-03 12:52 | P.DS_ITS ---
DS: Providers Provider Date of Service: 08/05/20 Date of admission: 07/29/20 03:00 Primary care physician: Darwin Gutierres MD Consults: 07/29/20 03:00 Consult to Cardiology Routine Consulting Provider: Geovanny Sparrow Reason for consultation: indeterminate troponins 07/29/20 05:25 Consult to Pulmonology Routine Consulting Provider: Lisbeth Tello Reason for consultation: COPD; DS: Diagnosis Discharge Diagnosis (1) Stress-induced cardiomyopathy: Status: Acute (2) NSTEMI (non-ST elevated myocardial infarction): Status: Acute (3) Atherosclerotic cardiovascular disease: Status: Acute (4) COPD (chronic obstructive pulmonary disease): Status: Acute Problem details: SHE DOES HAVE ADVANCED COPD, GETS SHORT OF BREATH ON EXERTION. BUT SHE REMAINS ACTIVE AND IS ABLE TO GO OUTDOORS, SHE STILL DRIVES HER CAR. BECAUSE SHE GETS SHORT WINDED WITH WALKING AROUND OR ANY EXERTION SHE IS ASKING WHAT ELSE CAN BE DONE TO IMPROVE HER LUNGS I TOLD HER THAT THE BEST THING TO DO IS TO STOP SMOKING, WHICH SHE CANNOT . CLARIFIED THE MEDS FOR HER AND ADVISED CONT. TO USE THE CURRENT MEDS. She is wondering if she could use oxygen however her O2 sat always remains in 90s, even at home as she checks very frequently. INCRUSE Ellipta ONE INH DAILY SYMBICORT 160-4.5 2 PUFFS BID , DUONEB UD S Q 6 HRS , PROAIR 2 PUFFS Q 6 HRS PRN . DS: Medications Discharge Medications Home Medications: Home Medications Medication Instructions Recorded Confirmed albuterol sulfate 2.5 mg INHALATION Q6H PRN 07/20/20 07/29/20 docusate sodium 100 mg capsule 100 mg PO DAILY PRN 07/20/20 07/29/20 polyethylene glycol 3350 17 17 g PO DAILY PRN g 07/20/20 07/29/20 gram/dose oral powder Previous Rx's Medication Instructions Recorded budesonide-formoterol HFA 160 2 puff INHALATION BID 30 Days 02/19/20 mcg-4.5 mcg/actuation aerosol #10.2 g inhaler nebulizers #1 ea 03/22/20 nicotine 14 mg/24 hr daily 1 patch TOPICAL DAILY #28 patch 04/19/20 transdermal patch umeclidinium 62.5 mcg/actuation 1 inh PO DAILY #30 ea 04/27/20 blister powder for inhalation fluoxetine 20 mg tablet 20 mg PO DAILY 30 Days #30 tab 05/10/20 fluticasone propionate 50 1 spray INTRANASAL BID PRN #16 g 05/21/20 mcg/actuation nasal spray,suspension atenolol 25 mg tablet 25 mg PO DAILY #90 tab 06/23/20 albuterol sulfate 90 mcg/actuation 2 puff INHALATION QID PRN 30 Days 07/20/20 aerosol inhaler #8.5 g lorazepam 1 mg tablet 1 mg PO BID PRN 30 Days #60 tab 07/20/20 DS: Summary Hospital Course Hospital Course: 80 yo female with PMH of HTN, COPD, current smoking, no known cardiac history, who presented to the ED increased shortness of breath. She was noted to have hypoxia with sats 86% with ambulation. EKG showed no ischemia. CXR with no acute findings but hyperinflation. Hihghly sensitive Troponin was 28, then wilmer to 50 and ultimately peaked at 480.. She was treated with nebulizers and solumedrol. Admitted to med/ surg with tele monitoring. Cardiology consulted for further evaluation of elevated troponin continue rising level of troponin that peaked at 480 and therefore NSTEMI. An echocardiogram was done and showed 2. Moderate to severe LV systolic dysfunction with mid and apical segment hypokinesis, finding overall suggestive of stress-induced cardiomyopathy, CAD cannot be entirely ruled out. Previously her echocardiogram has been normal. Patient was treated for NSTEMI with anticoagulation with Lovenox for 48, Aspirin, Beta gabby and Lipitor, and lisinopril. [facility] shows was normal further solidifying diagnosis of stress induced cardiomyopathy. She is to continue medication management with Coreg, Lisinopril, Aspirin, Lipitor For COPD exacerbation--She was treated with oxygen, IV steroid later changed to oral Prednisone, she was also emprically given Levaquin for bronchitis but no longer needs and is to continue her usual inhalers. 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 up with Time Spent with Patient Time attestation: Total time spent providing and/or coordinating discharge services: Discharge coordination time: Greater than 30 minutes Quality: Stroke Does the patient have a stroke diagnosis?: No Physical Exam Vital Signs: Vital Signs: Last Vital Signs Temp 98.7 F 06/15/21 12:00 Pulse 104 H 08/03/20 12:00 Resp 20 08/03/20 12:00 BP 115/61 08/03/20 12:00 Pulse Ox 96 08/03/20 12:00 Oxygen Flow Rate 2 07/28/20 22:25 Body Mass Index 18.8 DS: Data Data Completed and Pending Labs on day of discharge: Laboratory Results - last 24 hr 08/03/20 08:49 Sodium 141 Potassium 3.9 Chloride 104 Carbon Dioxide 32 H Anion Gap 9 L BUN 41 H Creatinine 1.04 Estim Creat Clear Calc 34.9 Estimated GFR 51 Random Glucose 69 D Calcium 8.4 Magnesium 1.9 Discharge Plan Discharge Anticipated Discharge Date/Time: 08/04/20 10:36 Patient Disposition: Home Health Service Discharge Diagnosis: 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 Referrals: Darwin Gutierres MD [Primary Care Provider] - 1 Week Discharge Medications: New atorvastatin 40 mg Tablet 40 mg PO BEDTIME Qty: 30 RF: 0 carvedilol 3.125 mg Tablet 3.125 mg PO BID Qty: 60 RF: 0 lisinopril 5 mg Tablet 5 mg PO DAILY Qty: 30 RF: 0 aspirin 81 mg Tablet,Chewable 81 mg PO DAILY Qty: 90 RF: 0 prednisone 20 mg tablet 20 mg PO DAILY Qty: 4 RF: 0 Continued (DME) nebulizers Misc See Rx Instructions .ROUTE .MEDSUPPLY Qty: 1 RF: 0 albuterol sulfate 90 mcg/actuation HFA aerosol inhaler 2 puff inhalation QID PRN (Reason: shortness of breath or wheezing) 90 Days Qty: 8.5 RF: 0 albuterol sulfate 2.5 mg /3 mL (0.083 %) solution for nebulization 2.5 mg inhalation Q6H PRN (Reason: Shortness Of Breath Or Wheezing) 90 Days Qty: 180 RF: 0 budesonide-formoterol [Symbicort] 160-4.5 mcg/actuation HFA aerosol inhaler 2 puff inhalation BID 90 Days Qty: 10.2 RF: 0 docusate sodium [Colace] 100 mg capsule 100 mg PO DAILY PRN (Reason: Constipation) Qty: 90 RF: 0 fluoxetine 20 mg tablet 20 mg PO DAILY 90 Days Qty: 90 RF: 3 fluticasone propionate 50 mcg/actuation spray,suspension 1 spray intranasal BID PRN (Reason: allergy symptoms) 90 Days Qty: 16 RF: 0 Incruse Ellipta 62.5 mcg/actuation blister with device 1 inh PO DAILY 90 Days Qty: 30 RF: 0 polyethylene glycol 3350 [Miralax] 17 gram/dose powder 17 g PO DAILY PRN (Reason: Constipation) 90 Days Qty: 850 RF: 0 nicotine 14 mg/24 hr patch 24 hour 1 patch topical DAILY 90 Days Qty: 28 RF: 0 Discontinued atenolol 25 mg tablet 25 mg PO DAILY Qty: 90 RF: 0 No Action lorazepam 1 mg tablet 1 mg PO BID PRN (Reason: anxiety) 30 Days Qty: 60 RF: 0 Discharge Orders: Discharge Order (Routine); Ordered 08/03/20 Ordered By: Theo Ward Diet: advance to usual diet Activity on Discharge: As tolerated Stand Alone Forms: Patient Portal Discharge page Care Plan Goals: Prevent rehospitalization and managed and stabilized heart and lung condition Health Concerns: Stress induced cardiomyopathy COPD with chronic respiratory failure Plan of Treatment: Take all medications as prescribed, follow up with your [facility] physician within a week, call for appointment Patient is suppose to be relocating to [place] with daughter in 2 days, and ask to delay trip at least a week to be reassess by PCP before going Assessment: See above Discharge Date/Time: 08/04/20 11:05
--- NOTE | 2020-08-03 13:10 | MHC.CM.PN ---
PATIENT REPORTS THAT SHE DOES NOT HAVE AN ADDRESS HERE, AND THAT SHE IS LEAVING FOR [place] ON SUNDAY. WHEN ASKED IF SHE WOULD LIKE A VISITING NURSE, SHE AGREES. PATIENT AWARE THAT SERVICES CAN NOT BE SET UP HERE FOR [place] AND THAT SHE AND DAUGHTER WILL HAVE TO SECURE THESE ONCE SHE ARRIVES. WHEN ASKED IF SHE WOULD LIKE A VISITING RN FOR THE NEXT TWO DAYS, SHE AGREES, BUT RESTATES THAT SHE DOES NOT HAVE AN ADDRESS HERE. CM TO MEET WITH DAUGHTER WHEN SHE ARRIVES. IMM 08/03 IN CHART
--- NOTE | 2020-08-03 16:22 | P.PNIM_ITS ---
Subjective Subjective Date of Service: 08/03/20 Interval History: seen in f/u for acute pancre Physical Exam Vital Signs: Vital Signs: Last Vital Signs Temp 98.9 F 08/03/20 16:00 Pulse 98 08/03/20 16:00 Resp 19 08/03/20 16:00 BP 126/64 08/03/20 16:00 Pulse Ox 95 08/03/20 16:00 Oxygen Flow Rate 2 07/28/20 22:25 Body Mass Index 18.8 General: AO X 3, no acute distress Resp: CTA bilateral CVS: S1,S2,RRR GI: +BS, NT, no distention Skin: No rash Neuro: motor grossly intact Psych: appropriate affect Objective Data Current Medications Generic Name Dose Route Start Last Admin Trade Name Freq PRN Reason Stop Dose Admin Acetaminophen 650 mg 07/29/20 03:00 08/03/20 14:51 Acetaminophen 325 Mg Tablet PO 650 mg Q6H PRN Administration Pain, Mild (Pain Scale 1-3) Albuterol Sulfate 2.5 mg 07/29/20 13:39 Albuterol Sulfate (0.083%) 2.5 Mg/3 Ml Vial.Neb INHALE Q6H PRN Shortness Of Breath Or Wheezing Albuterol Sulfate 2 puff 07/29/20 13:39 08/01/20 05:43 Albuterol Sulfate 90 Mcg 8 Gm Inhaler INHALE 2 puff QID PRN Administration shortness of breath or wheezing Albuterol/Ipratropium 3 ml 07/29/20 03:03 07/29/20 04:42 Albuterol/Iprat 2.5/0.5mg 3 Ml Ampul.Neb INHALE 3 ml RQ4H PRN Administration Shortness of Breath/Wheezing Albuterol/Ipratropium 3 ml 07/29/20 08:00 08/03/20 13:36 Albuterol/Iprat 2.5/0.5mg 3 Ml Ampul.Neb INHALE 3 ml RQ6H WHILE AWAKE MELANIE Administration Aspirin 81 mg 07/29/20 14:30 08/03/20 09:12 Aspirin 81 Mg Tab.Chew PO 81 mg DAILY MELANIE Administration Atorvastatin Calcium 40 mg 07/29/20 21:00 08/02/20 21:01 Atorvastatin Calcium 40 Mg Tablet PO 40 mg BEDTIME MELANIE Administration Carvedilol 3.125 mg 07/30/20 21:00 08/03/20 09:12 Carvedilol 3.125 Mg Tablet PO 3.125 mg BID MELANIE Administration Protocol Docusate Sodium 100 mg 07/29/20 13:39 Docusate Sodium 100 Mg Capsule PO DAILY PRN Constipation Enoxaparin Sodium 40 mg 08/02/20 08:00 08/03/20 09:11 Enoxaparin Sodium 40 Mg/0.4 Ml Syringe SUBCUT 40 mg Q24H MELANIE Administration Fluoxetine HCl 20 mg 07/29/20 13:45 08/03/20 09:12 Fluoxetine Hcl 20 Mg Capsule PO 20 mg DAILY MELANIE Administration Fluticasone Propionate 1 spray 07/29/20 13:39 07/31/20 10:01 Fluticasone Propionate Nasal 16 Gm [place] NOSTRIL-B 1 spray BID PRN Administration allergy symptoms Levofloxacin 250 mg 07/30/20 06:00 08/03/20 05:34 Levofloxacin 250 Mg Tablet PO 250 mg Q24H MELANIE Administration Lisinopril 5 mg 07/30/20 10:00 08/03/20 09:13 Lisinopril 5 Mg Tablet PO 5 mg DAILY MELANIE Administration Protocol Nicotine 14 mg 07/29/20 10:45 08/03/20 09:13 Nicotine 14 Mg Patch.Td24 TRANSDERMA 14 mg DAILY MELANIE Administration Nitroglycerin 0.4 mg 07/29/20 03:00 Nitroglycerin 0.4 Mg Tab.Subl SUBLINGUAL Q5M PRN Chest Pain Pharmacy Consult 1 each 07/29/20 07:18 Consult Rx Other Drug Dosing MISCELLANE DAILY PRN Consult order Pharmacy Consult 1 each 07/29/20 10:41 Consult Rx Perform Med Rec MISCELLANE ONCE PRN Consult order Polyethylene Glycol 17 gm 07/29/20 13:39 Polyethylene Glycol 3350 17 Gm Powd.Pack PO DAILY PRN Constipation Prednisone 40 mg 08/02/20 09:00 08/03/20 09:12 Prednisone 20 Mg Tablet PO 40 mg DAILY MELANIE Administration Sodium Chloride 3 ml 07/29/20 08:00 08/03/20 09:14 0.9 % Sodium Chloride Flush 3 Ml Syringe IVFLUSH 3 ml QSHIFT MELANIE Administration Tiotropium [place] 1 puff 07/30/20 09:00 08/03/20 08:14 Tiotropium [place] 18 Mcg Cap.W.Dev INHALE 1 puff RDAILY [facility] Administration Labs CBC & Chem 7: 08/01/20 08:34 08/03/20 08:49 Labs: Laboratory Results - last 24 hr 08/03/20 08:49 Sodium 141 Potassium 3.9 Chloride 104 Carbon Dioxide 32 H Anion Gap 9 L BUN 41 H Creatinine 1.04 Estim Creat Clear Calc 34.9 Estimated GFR 51 Random Glucose 69 D Calcium 8.4 Magnesium 1.9 Microbiology Microbiology Results: Microbiology 07/28/20 23:38 Blood Culture - Final Blood - Venous No growth after 5 days. 07/28/20 23:39 Blood Culture - Final Blood - Venous No growth after 5 days. Assessment and Plan (1) COPD (chronic obstructive pulmonary disease): Status: Acute Assessment and Plan: 80-year-old female with a past medical history of anxiety, depression, insomnia, CHF, COPD, CKD, hypertension, degenerative spine disease presented to the hospital with a chief complaint of shortness of breath and found to have elevate troponin NSTEMI possible type 2 from COPD exacerbation. Repeat trop and ECG today, start anticoagulation with Lovenox for 48 hours, ASA, statin, BB. Echo shows Moderate to severe LV systolic dysfunction with mid and apical segment hypokinesis, finding overall suggestive of stress-induced cardiomyopathy, stress is normal. COPD exacerbation and acute bronchitis--improved continue Prednisone, Bronchdilators, Oxygen history of CHF presently euvolemic HTN--continue Coreg, Lisinopril started d/t cardiomyopathy I disucssed plan of care with daughter at bedside
[2020-08-03] MEDS: Atorvastatin Calcium 40 MG TABLET PO (20:57)
[2020-08-03] MEDS: Docusate Sodium 100 MG CAPSULE PO (20:57)
[2020-08-04] VITALS: BP 149/69; PULSE 79; RESP 16; TEMP 36.2; O2SAT 97
[2020-08-04 03:44] VITALS: BP 116/75; PULSE 91; RESP 16; TEMP 36.7; O2SAT 95
[2020-08-04] MEDS: LORazepam 1 MG TABLET PO ×2 (03:50→10:27)
[2020-08-04] MEDS: levoFLOXacin 250 MG TABLET PO (06:20)
[2020-08-04 06:59] LABS: Hemoglobin 10.5 g/dl (12.0-16.0); Mean Corpuscular HGB Conc 31.8 g/dl (31.0-35.0); Mean Corpuscular Hemoglobin 33.5 pg (27.0-33.0); Mean Corpuscular Volume 105.4 fL (80-98); Mean Platelet Volume 8.6 fL (9.4-12.3); Platelet Count 252 X10*3/uL (160-400); Red Blood Count 3.13 X10*6/uL (4.20-5.50); Red Cell Distribution Width 14.4 % (11.0-16.0); White Blood Count 9.6 X10*3/uL (4.8-10.8)
[2020-08-04 08:00] VITALS: BP 135/71; PULSE 101; RESP 18; TEMP 36.6; O2SAT 100
[2020-08-04] MEDS: Albuterol/Iprat 2.5/0.5MG 3 ML AMPUL.NEB INHALE (09:00)
[2020-08-04 09:01] VITALS: PULSE 108; O2SAT 98
--- NOTE | 2020-08-04 09:07 | MHC.CM.PN ---
NURSE PHP MAGENTO DEVELOPER NOTE ELECTRONIC MEDICAL RECORD REVIEWED ALONG WITH CASE DISCUSSED WITH STAFF NURSE AND HOSPITLAIST, MET WITH PATIENT AND WITH HER DAUGHTER ROD, THEY INFOMRED ME THAT THEY WILL BE LEAVING FOR [place] IN THREE DAys ,they have appt with primary physician and pulmonary and cardiac before she leaves , they have out colony pcsa services on hold until she return back. she has her nebulizer that she is taking with her . discharge plan d/c with daughter to bed and breFEQST TO BE GOING TO [place] SUNDAY , AFTER BEING SEEN BY THE PCP PULMOPNARY AND SEAT INSTALLER, THEY DO NOT WANT TO HAVE NURSING TO COME FOR ONE VISIST TRANSPORTATION FAMILY
--- NOTE | 2020-08-04 09:20 | MHC.CM.PN ---
NURSE JUDICIAL CLERK NOTE PHYSICIAN WROTE FOR [facility] BUT PATIENT AND DAUGHTER DECLINED INFOMRED HOSPITLAIST OF THIS , WILL HAVE [facility] NURSE CALL [facility] IN ORDER TO REACH HER MOM
[2020-08-04 09:54] VITALS: PULSE 100; O2SAT 90
[2020-08-04] MEDS: carvediloL 3.125 MG TABLET PO (10:27)
[2020-08-04] MEDS: Aspirin 81 MG TAB.CHEW PO (10:28)
[2020-08-04] MEDS: lisinopriL 5 MG TABLET PO (10:28)
[2020-08-04] MEDS: predniSONE 20 MG TABLET 40 MG PO (10:28)
[2020-08-04] MEDS: Nicotine 14 MG PATCH.TD24 TRANSDERMA (10:28)
[2020-08-04] MEDS: FLUoxetine HCl 20 MG CAPSULE PO (10:28)
== END 2020-08-04 11:05 | disposition home health service (06) | DRG 190 ==
LOC: HO.ED 07-29 01:56 → HO.EDOVER 07-29 03:44 → HO.S3 07-29 06:26
PROVIDERS: Internal Medicine; Nurse Practitioner Family; Admitting Provider Hospitalist; Emergency Provider Emergency Medicine; PCP Internal Medicine; Visit Provider Internal Medicine
DX: J44.0 Chronic obstructive pulmonary disease with (acute) lower respiratory infection (principal); I21.A1 Myocardial infarction type 2; J96.01 Acute respiratory failure with hypoxia; I51.81 Takotsubo syndrome; E44.0 Moderate protein-calorie malnutrition; Z68.1 Body mass index [BMI] 19.9 or less, adult; F17.210 Nicotine dependence, cigarettes, uncomplicated; J44.1 Chronic obstructive pulmonary disease with (acute) exacerbation; F41.9 Anxiety disorder, unspecified; J20.9 Acute bronchitis, unspecified; I25.10 Atherosclerotic heart disease of native coronary artery without angina pectoris; Z71.6 Tobacco abuse counseling; Z20.822 Contact with and (suspected) exposure to COVID-19; I11.0 Hypertensive heart disease with heart failure; I50.9 Heart failure, unspecified; Z85.72 Personal history of non-Hodgkin lymphomas; Z88.0 Allergy status to penicillin; Z79.51 Long term (current) use of inhaled steroids; Z79.82 Long term (current) use of aspirin; Z79.899 Other long term (current) drug therapy
CPT/HCPCS: 36415; 71045; 71275; 78452; 80048; 80076; 81001; 81003; 83605; 83735; 83880; 84484; 85025; 85027; 85379; 85610; 85730; 87040; 87086; 87635; 93005; 93017; 93306; 94640; 94644; 99285; A9500; J0280; J1650; J1956; J2785; J2920; J2930